=== PATIENT | female | born 1930 | race Caucasian/White ===

== ENCOUNTER 2017-05-23 22:19 | Emergency (ER) | payer OTHER ==
--- NOTE | 2017-05-23 22:29 | PDOC ---
History of Present Illness - General Chief Complaint: Blood Pressure Problem Stated Complaint: HIGH BLOOD PRESSURE Time Seen by Provider: 05/23/17 22:22 History Source: Patient Exam Limitations: No Limitations - History of Present Illness Initial Comments: 05/23/17 22:49 This is a 87-year-old female who comes in with her family for evaluation of hypertension. Patient has been taking her blood pressure multiple times throughout the day and calling her doctor as her blood pressure is been running anywhere from 190 systolic to 210 systolic throughout the day. Patient has taken double the amount of blood pressure meds that she normally takes and has been very anxious as well as her family has been very anxious. Patient's doctor call me pablito and asked me to evaluate her. Patient's doctor said the patient is asymptomatic but because of her anxiety and the family's concern that she asked me to evaluate her. Patient denied any chest pain, shortness of breath, headache or any complaints consistent with hypertension. Patient normally doesn' t take her blood pressure more than about once a week however she was at rehabilitation and it was high there and then she started taking it at home and it was consistently high so she became concerned and took it multiple times today. In the emergency room patient appeared anxious as well as her family was very anxious. PAST MEDICAL HISTORY: Hypertension as per history of present illness PAST SURGICAL HISTORY: no significant history FAMILY HISTORY: no pertinant history SOCIAL HISTORY: Pt lives with family and is employed. MEDICATIONS: reviewed ALLERGIES: As per nursing notes Review of Systems General: No fevers or chills, no weakness, no weight loss HEENT: No change in vision. No sore throat,. No ear pain CardioVascular: No chest pain or shortness of breath Respiratory:No cough, or wheezing. Gastrointestinal: no nausea, vomitting, diarrhea or constipation, No rectal bleeding Genitourinary: No dysuria, hematuria, or frequency Musculoskeletal: No joint or muscle pain or swelling Neurologic: No headache, vertigo, dizziness or loss of consciousness Psychiatric: nor depression Skin: No rashes or easy bruising Endocrine: no increased thirst or abnormal weight change Allergic: no skin or latex allergy All other systems reviewed and normal Exam: General: Well-nourished well-developed individual, no acute distress HEENT: Throat: Normal, tonsils normal, no erythema or exudate Neck: Supple, no meningeal signs, no lymphadenopathy Eyes::Pupils equal reactive and round, extraocular motion intact Chest: Nontender to palpation Cardiac: S1-S2 normal, regular rate and rhythm, no murmurs rubs or gallops Respiratory: Lungs clear to auscultation bilateral Abdomen: Soft, nondistended, normal bowel sounds, nontender to palpation diffusely Extremities: Warm, dry, no cyanosis, clubbing, or edema Skin: No rashes Neuro: Alert and oriented x3, nonfocal exam, grossly intact, normal gait Psych: Normal mood and affect Assessment and plan: This is an 87-year-old female who was sent in by her primary care doctor for elevated blood pressure. Arrival here in the emergency room patient's blood pressure was 170 systolic over 70 diastolic. This is in a range that is normal for this patient as per her primary care doctor. Patient however was very anxious so I did give her some Xanax and a repeat blood pressure was 156/70. Patient was discharged home and told to follow-up with her primary care doctor in the morning. 05/23/17 23:03 Past History - Past Medical History Allergies/Adverse Reactions: Allergies Allergy/AdvReac Type Severity Reaction Status Date / Time No Known Allergies Allergy Verified 05/23/17 22:32 Home Medications: Ambulatory Orders Amlodipine Besylate [Norvasc -] 2.5 mg PO DAILY 05/23/17 Atenolol [Tenormin -] 100 mg PO DAILY 05/23/17 Furosemide [Lasix] 20 mg PO DAILY 05/23/17 Cancer: Yes HTN: Yes - Psycho/Social/Smoking Cessation Hx Anxiety: No Suicidal Ideation: No Smoking Status: No Smoking History: Never smoked Number of Cigarettes Smoked Daily: 0 Hx Alcohol Use: No Drug/Substance Use Hx: No Substance Use Type: None Hx Substance Use Treatment: No *DC/Admit/Observation/Transfer Diagnosis at time of Disposition: Essential hypertension - Discharge Dispostion Disposition: HOME Condition at time of disposition: Stable Admit: No - Referrals Referrals: Margaux Landeros MD [Primary Care Provider] - - Patient Instructions Additional Instructions: Return to the emergency department immediately with ANY new, persistent or worsening symptoms. Continue any medications as previously prescribed by your physician. You should follow up with your primary doctor as soon as possible regarding today's emergency department visit. . Please make sure your doctor reviews the results of your emergency evaluation. Thank you for coming to the Emergency Department today for your care. It was a pleasure to see you today. Please note that your evaluation is INCOMPLETE until you follow-up with your doctor.
[2017-05-23 22:39] VITALS: BP 170/70; PULSE 60; TEMP 97.9; BMI 25.1
[2017-05-23] MEDS ORDERED: ALPRAZolam 0.25 MG TABLET PO ONE (22:39)
== END 2017-05-23 23:13 | disposition home or self-care (01) ==
LOC: FER 22:19
DX: I10 Essential (primary) hypertension (principal); Z85.9 Personal history of malignant neoplasm, unspecified
CPT/HCPCS: 99281-25

== ENCOUNTER 2017-11-24 17:25 | Observation (INO) | payer OTHER ==
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
[2017-11-24] MEDS ORDERED: ACETAMINOPHEN 325 MG TABLET (FP) PO ONE (18:18)
[2017-11-24] MEDS ORDERED: ACETAMINOPHEN 325 MG TABLET (FP) ONE ×2 (18:35→18:36)
[2017-11-24 21:50] LABS: BASO % 0.1 % (0-2.0); EOS % 0.4 % (0-4.5); HEMATOCRIT 38.9 % (32.4-45.2); HEMOGLOBIN 12.7 GM/dl (10.7-15.3); LYMPH % 9.6 % (8-40); MCH 26.6 pg (25.7-33.7); MCHC 32.6 g/dl (32.0-36.0); MEAN CELL VOLUME 81.5 fl (80-96); MEAN PLT VOLUME 7.8 fl (7.5-11.1); MONO % 4.8 % (3.8-10.2); NEUT % 85.1 % (42.8-82.8); PLATELET COUNT 205 K/MM3 (134-434); RBC 4.78 M/mm3 (3.60-5.2); RDW 13.7 % (11.6-15.6); WHITE BLOOD COUNT 12.5 K/mm3 (4.0-10.8)
[2017-11-24 21:58] LABS: ALBUMIN 3.4 g/dl (3.5-5.0); ALK PHOS 46 U/L (32-92); ANION GAP 1 (8-16); BILIRUBIN,TOTAL 0.8 mg/dl (0.2-1.0); BLOOD UREA NITROGEN 19 mg/dl (7-18); CALCIUM 9.4 mg/dl (8.4-10.2); CHLORIDE 110 mmol/L (98-107); CO2 26 mmol/L (22-28); GLUCOSE,RANDOM 105 mg/dl (74-106); POTASSIUM 3.4 mmol/L (3.5-5.1); SGOT/AST 26 U/L (10-42); SGPT/ALT 15 U/L (10-40); SODIUM 137 mmol/L (136-145); TOT PROT 5.4 g/dl (6.4-8.3)
[2017-11-24 22:06] LABS: CREATININE < 0.8 mg/dl (0.6-1.3)
--- NOTE | 2017-11-24 22:37 | PDOC ---
*Physical Exam - Vital Signs Last Vital Signs Temp Pulse Resp BP Pulse Ox 97.4 F L 65 20 183/84 100 11/24/17 17:25 11/24/17 17:25 11/24/17 17:25 11/24/17 17:25 11/24/17 17:25 ED Treatment Course - LABORATORY CBC & Chemistry Diagram: 11/24/17 21:35 11/24/17 21:35 - ADDITIONAL ORDERS Additional order review: Laboratory Results 11/24/17 11/24/17 11/24/17 21:35 21:35 21:35 Sodium 137 Potassium 3.4 L Chloride 110 H Carbon Dioxide 26 Anion Gap 1 L BUN 19 H Creatinine < 0.8 Creat Clearance w eGFR > 60 Random Glucose 105 Calcium 9.4 Total Bilirubin 0.8 AST 26 ALT 15 Alkaline Phosphatase 46 Creatine Kinase 59 Troponin I 0.03 Total Protein 5.4 L Albumin 3.4 L 11/24/17 21:35 RBC 4.78 MCV 81.5 MCHC 32.6 RDW 13.7 MPV 7.8 Neutrophils % 85.1 H Lymphocytes % 9.6 Monocytes % 4.8 Eosinophils % 0.4 Basophils % 0.1 - RADIOLOGY Radiology Studies Ordered: Category Date Time Status HEAD CT WITHOUT CONTRAST [CT] Stat CT Scan 11/24/17 21:21 Taken ANKLE & FOOT-LEFT* [RAD] Stat Radiology 11/24/17 20:48 Taken FINGER(S) LEFT [RAD] Stat Radiology 11/24/17 20:17 Taken - Medications Given in the ED: ED Medications Discontinued Medications Generic Name Dose Route Start Last Admin Trade Name Freq PRN Reason Stop Dose Admin Acetaminophen 650 mg 11/24/17 18:18 11/24/17 18:38 Tylenol - PO 11/24/17 18:19 650 mg ONCE ONE Administration *DC/Admit/Observation/Transfer Diagnosis at time of Disposition: Fall (on) (from) other stairs and steps, initial encounter Blunt trauma of sternum Qualifiers: Encounter type: initial encounter Qualified Code(s): S29.8XXA - Other specified injuries of thorax, initial encounter Chest wall contusion Qualifiers: Encounter type: initial encounter Laterality: unspecified laterality Qualified Code(s): S20.219A - Contusion of unspecified front wall of thorax, initial encounter Finger fracture, left Qualifiers: Encounter type: initial encounter Finger: index finger Fracture type: closed Phalanx: middle Fracture alignment: displaced Qualified Code(s): S62.621A - Displaced fracture of middle phalanx of left index finger, initial encounter for closed fracture - Discharge Dispostion Condition at time of disposition: Improved Admit: Yes - Referrals - Patient Instructions - Post Discharge Activity
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
[2017-11-24 23:29] LABS: URINE APPEARANCE Clear; URINE BILIRUBIN Negative (NEGATIVE); URINE BLOOD Trace-intact (NEGATIVE); URINE COLOR YELLOW; URINE GLUCOSE (UA) Negative (NEGATIVE); URINE KETONE Negative (NEGATIVE); URINE LEUK ESTERASE 2+ (NEGATIVE); URINE NITRITE Negative (NEGATIVE); URINE PROTEIN Negative (NEGATIVE); URINE UROBILINOGEN 0.2 (0.2-1.0)
[2017-11-24 23:36] LABS: EPI CELLS FEW /HPF; URINE BACTERIA MODERATE /hpf (NEGATIVE); URINE RBC 0-2 /hpf (0-3)
[2017-11-25] MEDS ORDERED: morphine CARPU-JECT 2 MG/1 ML DISP.SYRIN IVPUSH ONE (00:57)
[2017-11-25] MEDS ORDERED: morphine CARPU-JECT 2 MG/1 ML DISP.SYRIN ONE (01:07)
[2017-11-25] MEDS ORDERED: POLYETHYLENE GLYCOL 3350 119 GM BTL PO PRN (01:27)
[2017-11-25 02:38] VITALS: BMI 23.6
[2017-11-25 07:37] LABS: BASO % 0.5 % (0-2.0); HEMATOCRIT 34.5 % (32.4-45.2); LYMPH % 14.5 % (8-40); MCH 26.1 pg (25.7-33.7); MEAN CELL VOLUME 81.8 fl (80-96); MEAN PLT VOLUME 7.7 fl (7.5-11.1); PLATELET COUNT 190 K/MM3 (134-434); RBC 4.22 M/mm3 (3.60-5.2); RDW 13.5 % (11.6-15.6); WHITE BLOOD COUNT 6.6 K/mm3 (4.0-10.8)
[2017-11-25 07:43] LABS: ANION GAP 3 (8-16); BLOOD UREA NITROGEN 21 mg/dl (7-18); CALCIUM 9.1 mg/dl (8.4-10.2); CHLORIDE 110 mmol/L (98-107); CO2 27 mmol/L (22-28); CREATININE 0.6 mg/dl (0.6-1.3); GLUCOSE,RANDOM 96 mg/dl (74-106); POTASSIUM 3.5 mmol/L (3.5-5.1); SODIUM 140 mmol/L (136-145)
[2017-11-25] MEDS: amLODIPine BESYLATE 5 MG TABLET (FP) PO SCH (09:52)
[2017-11-25] MEDS: ATENOLOL 50 MG TABLET (FP) PO SCH (09:52)
[2017-11-25] MEDS: ENALAPRIL MALEATE 10 MG TABLET (FP) PO SCH (09:52)
[2017-11-25] MEDS: ASPIRIN 81 MG CHEWABLE TABLETS PO SCH (09:52)
[2017-11-25] MEDS: oxyCODONE HCL 5 MG TABLET PO PRN (09:55)
[2017-11-25] MEDS ORDERED: RESTASIS OU SCH (10:00)
[2017-11-25] MEDS ORDERED: VIACTIV SOFT PO SCH (10:00)
[2017-11-25] MEDS ORDERED: OCUVITE PO SCH (10:00)
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
[2017-11-25] MEDS: HEPARIN NA (PORCINE) 5,000 UNITS/ML 1ML VIAL SQ SCH (21:31)
[2017-11-26] MEDS: oxyCODONE HCL 5 MG TABLET PO PRN (07:03)
[2017-11-26] MEDS: ACETAMINOPHEN 325 MG TABLET (FP) PO PRN (07:04)
[2017-11-26] MEDS: ASPIRIN 81 MG CHEWABLE TABLETS PO SCH (10:07)
[2017-11-26] MEDS: amLODIPine BESYLATE 5 MG TABLET (FP) PO SCH (10:08)
[2017-11-26] MEDS: ATENOLOL 50 MG TABLET (FP) PO SCH (10:08)
[2017-11-26] MEDS: ENALAPRIL MALEATE 10 MG TABLET (FP) PO SCH (10:08)
[2017-11-26] MEDS: HEPARIN NA (PORCINE) 5,000 UNITS/ML 1ML VIAL SQ SCH ×2 (10:09→21:25)
--- NOTE | 2017-11-26 11:15 | PN ---
Physical Exam: SUBJECTIVE: Patient seen and examined this AM, She is sitting up in bed with complaints of left hand 4th finger splint falling off and minor sternal pain. She feels she can not return home alone without going to a SNF for rehab to regain her strengh. OBJECTIVE: Vital Signs Period Temp Pulse Resp BP Sys/Valenzuela Pulse Ox Last 24 Hr 98.0 F-98.6 F 66-69 18-19 141-175/52-66 94-99 GENERAL: The patient is awake, alert, and fully oriented, in no acute distress. HEAD: Normal with no signs of trauma. NECK: Trachea midline, full range of motion, supple. LUNGS: Breath sounds equal, clear to auscultation bilaterally, no wheezes, no crackles, no accessory muscle use. Minor bruising to the lower pole of sternal bone HEART: Regular rate and rhythm, S1, S2 without murmur, rub or gallop. ABDOMEN: Soft, nontender, nondistended, normoactive bowel sounds, no guarding, no rebound, no hepatosplenomegaly, no masses. EXTREMITIES: 2+ pulses, warm, well-perfused, no edema. Left hand 4th digit, eccymotic and swelling NEUROLOGICAL: Cranial nerves II through XII grossly intact. Normal speech, gait not observed. PSYCH: Normal mood, normal affect. SKIN: Warm, dry, normal turgor, no rashes or lesions noted Active Medications Generic Name Dose Route Start Last Admin Trade Name Freq PRN Reason Stop Dose Admin Acetaminophen 650 mg 11/25/17 01:32 11/26/17 07:04 Tylenol - PO 650 mg Q6H PRN Administration PAIN LEVEL 4 - 6 Amlodipine Besylate 5 mg 11/25/17 10:00 11/26/17 10:08 Norvasc - PO 5 mg DAILY KATARINA Administration Aspirin 81 mg 11/25/17 10:00 11/26/17 10:07 Asa - PO 81 mg DAILY KATARINA Administration Atenolol 100 mg 11/25/17 10:11/26/17 10:08 Tenormin - PO 100 mg DAILY KATARINA Administration Enalapril Maleate 10 mg 11/25/17 10:00 11/26/17 10:08 Vasotec - PO 10 mg DAILY KATARINA Administration Heparin Sodium (Porcine) 5,000 unit 11/25/17 22:00 11/26/17 10:09 Heparin - SQ 5,000 unit BID KATARINA Administration Non-Formulary Medication 1 tab 11/25/17 10:00 Ocuvite (Nf) - PO DAILY KATARINA Non-Formulary Medication 1 drp 11/25/17 10:00 Restasis OU DAILY KATARINA Non-Formulary Medication 2 cap 11/25/17 10:00 Viactiv Soft Chew PO DAILY KATARINA Oxycodone HCl 5 mg 11/25/17 01:33 11/26/17 07:03 Roxicodone - PO 5 mg Q4H PRN Administration PAIN LEVEL 7 - 10 Polyethylene Glycol 17 gm 11/25/17 01:27 Miralax (For Daily Use) - PO DAILY PRN CONSTIPATION ASSESSMENT/PLAN: 87 year-old woman with a PMH significant for HTN, HLD, OA, and spinal stenosis. Placed on observation following a fall with + finger fx, sternal pain, and today noted to have elevated blood pressure asymtomatic and resolved. C/o of urinary burning, + leuks on admission with low wbc , noted trace blood Chest pain following fall --Sternal and rib tenderness reproducible on exam, no ecchymosis; likely musculoskeltal, mild bruising noted. --possible sternal contusion, --no events on telemetry --encourage incentive spirometry, early ambulation --Tylenol, oxycodone PRN Left fourth finger fracture --tongue blade splint and tape to secure fx --no surgical intervention per ortho Bilateral foot/toe pain --all imaging negative for acute process --PT evaluation pt uses walker at home. Hypertension --continue amlodipine, enalapril, atenolol --elevated earlier but resolved after morning meds. --monitor b/p closely urinary dysuria --repeat ua/cx --start on macrobid until ua/cx back Hyperlipidemia --not on medication Osteoarthritis Spinal stenosis --no acute issues FEN Fluids: PO intake adequate Electrolytes: replete as indicated Nutrition: low sodium DVT prophylaxis: subq heparin Physical therapy evaluation SW consult for SNF plan for rehab Dispo: continues to require observation. Full code. Visit type - Emergency Visit Emergency Visit: Yes ED Registration Date: 11/24/17 Care time: The patient presented to the Emergency Department on the above date and was hospitalized for further evaluation of their emergent condition. - New Patient This patient is new to me today: Yes Date on this admission: 11/26/17 - Critical Care Critical Care patient: No - Discharge Referral Referred to [facility] Med [facility] No
[2017-11-26] MEDS ORDERED: NITROFURANTOIN MACROCRYSTAL 50 MG CAPSULE (FP) PO SCH (11:30)
[2017-11-26] MEDS: NITROFURANTOIN MACROCRYSTAL 50 MG CAPSULE (FP) PO SCH ×2 (13:10→21:25)
[2017-11-27 07:52] LABS: BASO % 0.4 % (0-2.0); EOS % 3.4 % (0-4.5); HEMATOCRIT 33.3 % (32.4-45.2); HEMOGLOBIN 10.8 GM/dl (10.7-15.3); LYMPH % 19.5 % (8-40); MCH 26.5 pg (25.7-33.7); MCHC 32.5 g/dl (32.0-36.0); MEAN CELL VOLUME 81.6 fl (80-96); MEAN PLT VOLUME 8.4 fl (7.5-11.1); MONO % 8.7 % (3.8-10.2); PLATELET COUNT 166 K/MM3 (134-434); RBC 4.08 M/mm3 (3.60-5.2); WHITE BLOOD COUNT 6.9 K/mm3 (4.0-10.8)
[2017-11-27] MEDS: ACETAMINOPHEN 325 MG TABLET (FP) PO PRN ×2 (08:31→17:10)
[2017-11-27] MEDS: oxyCODONE HCL 5 MG TABLET PO PRN ×2 (08:31→17:10)
[2017-11-27 08:44] LABS: ALBUMIN 2.7 g/dl (3.5-5.0); ALK PHOS 41 U/L (32-92); ANION GAP 5 (8-16); BILIRUBIN,TOTAL 0.7 mg/dl (0.2-1.0); BLOOD UREA NITROGEN 20 mg/dl (7-18); CHLORIDE 107 mmol/L (98-107); CO2 25 mmol/L (22-28); GLUCOSE,RANDOM 95 mg/dl (74-106); MAGNESIUM 1.9 mg/dL (1.8-2.4); PHOSPHOROUS 2.7 mg/dl (2.5-4.6); POTASSIUM 3.7 mmol/L (3.5-5.1); SGOT/AST 21 U/L (10-42); SGPT/ALT 13 U/L (10-40); SODIUM 137 mmol/L (136-145); TOT PROT 4.6 g/dl (6.4-8.3)
[2017-11-27 09:04] LABS: CREATININE 0.8 mg/dl (0.6-1.3)
[2017-11-27] MEDS: ATENOLOL 50 MG TABLET (FP) PO SCH (10:09)
[2017-11-27] MEDS: NITROFURANTOIN MACROCRYSTAL 50 MG CAPSULE (FP) PO SCH ×2 (10:09→14:20)
[2017-11-27] MEDS: ENALAPRIL MALEATE 10 MG TABLET (FP) PO SCH (10:09)
[2017-11-27] MEDS: amLODIPine BESYLATE 5 MG TABLET (FP) PO SCH (10:09)
[2017-11-27] MEDS: HEPARIN NA (PORCINE) 5,000 UNITS/ML 1ML VIAL SQ SCH (10:09)
[2017-11-27] MEDS: ASPIRIN 81 MG CHEWABLE TABLETS PO SCH (10:09)
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
[2017-11-27 14:24] VITALS: BP 140/60; PULSE 68; TEMP 97.8
[2017-11-27] MEDS ORDERED: TUBERCULIN PPD 5 TU/0.1ML SYRINGE (IN PATIENT USE ONLY) ID ONE (14:30)
--- NOTE | 2017-11-27 14:43 | EKG ---
Test Reason : Blood Pressure : / mmHG Vent. Rate : 068 BPM Atrial Rate : 068 BPM P-R Int : 152 ms QRS Dur : 086 ms QT Int : 436 ms P-R-T Axes : 075 -32 048 degrees QTc Int : 463 ms NORMAL SINUS RHYTHM LEFT AXIS DEVIATION MINIMAL VOLTAGE CRITERIA FOR LVH, MAY BE NORMAL VARIANT CANNOT RULE OUT SEPTAL INFARCT , AGE UNDETERMINED NONSPECIFIC ST ABNORMALITY ABNORMAL ECG WHEN COMPARED WITH ECG OF 21-AUG-2012 05:19, Criteria for possible SEPTAL INFARCT IS NOW PRESENT NONSPECIFIC ST ABNORMALITY now present in V4-6 Confirmed by JESUS MACIEL MD ([id number]) on 11/27/2017 2:43:09 PM Referred By: DR PATTON Confirmed By:JESUS MACIEL MD
--- NOTE | 2017-11-27 14:45 | EKG ---
Test Reason : Blood Pressure : / mmHG Vent. Rate : 076 BPM Atrial Rate : 076 BPM P-R Int : 148 ms QRS Dur : 086 ms QT Int : 408 ms P-R-T Axes : 059 -22 023 degrees QTc Int : 459 ms NORMAL SINUS RHYTHM VOLTAGE CRITERIA FOR LEFT VENTRICULAR HYPERTROPHY NONSPECIFIC ST ABNORMALITY ABNORMAL ECG WHEN COMPARED WITH ECG OF 24-NOV-2017 22:26, CRITERIA FOR SEPTAL INFARCT ARE NO LONGER PRESENT Confirmed by JANELL HORNER, JESUS ([id number]) on 11/27/2017 2:45:17 PM Referred By: BLANCA ROBINS Confirmed By:JESUS MACIEL MD
--- NOTE | 2017-11-27 14:46 | EKG ---
Test Reason : Blood Pressure : / mmHG Vent. Rate : 065 BPM Atrial Rate : 065 BPM P-R Int : 154 ms QRS Dur : 086 ms QT Int : 412 ms P-R-T Axes : 068 -31 026 degrees QTc Int : 428 ms NORMAL SINUS RHYTHM LEFT AXIS DEVIATION MINIMAL VOLTAGE CRITERIA FOR LVH, MAY BE NORMAL VARIANT NONSPECIFIC ST AND T WAVE ABNORMALITY ABNORMAL ECG WHEN COMPARED WITH ECG OF 25-NOV-2017 09:06, NO SIGNIFICANT CHANGE WAS FOUND Confirmed by JESUS MACIEL MD ([id number]) on 11/27/2017 2:46:47 PM Referred By: Confirmed By:JESUS MACIEL MD
--- NOTE | 2017-11-27 16:54 | PN ---
Teaching Attending Note Name of Resident: Marlene Lundberg Ask to reviewed Chest xray read for current admission. CXR from admission 11/24/2017 official read with cardiomegaly but no acute findings, no active concerns for TB mentioned on official report per radiology.
== END 2017-11-27 17:12 ==
LOC: FER 17:25 → FM/S 22:55
PROVIDERS: ADMIT Internal Medicine; ATTEND Nurse Practitioner Family
PROC: 2W3KX1Z Immobilization of Left Finger using Splint (ICD-10-PCS; principal; 2017-11-24)
PROC: 3E033NZ Introduction of Analgesics, Hypnotics, Sedatives into Peripheral Vein, Percutaneous Approach (ICD-10-PCS; 2017-11-24)
PROC: 3E013GC Introduction of Other Therapeutic Substance into Subcutaneous Tissue, Percutaneous Approach (ICD-10-PCS; 2017-11-24)
DX: S29.8XXA Other specified injuries of thorax, initial encounter (principal); S20.219A Contusion of unspecified front wall of thorax, initial encounter; S62.625A Displaced fracture of middle phalanx of left ring finger, initial encounter for closed fracture; R07.89 Other chest pain; W22.8XXA Striking against or struck by other objects, initial encounter; Y93.89 Activity, other specified; Y92.007 Garden or yard of unspecified non-institutional (private) residence as the place of occurrence of the external cause; I10 Essential (primary) hypertension; E78.5 Hyperlipidemia, unspecified; M19.90 Unspecified osteoarthritis, unspecified site; M48.00 Spinal stenosis, site unspecified; M79.672 Pain in left foot; M79.671 Pain in right foot; M79.675 Pain in left toe(s); M79.674 Pain in right toe(s)
CPT/HCPCS: 29130; 36415; 70450-TC; 71045-TC-FY; 71111-TC-FY; 71120-TC-FY; 73140-TC-LT-FY; 73610-TC-LT-FY; 73630-TC-LT; 73630-TC-RT-FY; 80048; 80053; 81003; 81015; 82550; 83735; 84100; 84484; 85025; 87086; 93005; 93010; 96372; 96374; 97116-GP; 97161-GP; 99283-25; G0378; J1644

== ENCOUNTER 2019-11-03 12:30 | Inpatient (IN) | payer OTHER ==
[2019-11-03] MEDS ORDERED: ALBUTEROL SO4 2.5/IPRATROPIUM 0.5 INH SOL 3 ML VIAL.NEB. NEB ONE ×2 (13:14→13:15)
[2019-11-03] MEDS ORDERED: POTASSIUM CHLORIDE ORAL LIQUID 20 MEQ/15 ML PO ONE (13:15)
--- NOTE | 2019-11-03 13:15 | PDOC ---
History of Present Illness - General Chief Complaint: Shortness of Breath Stated Complaint: CHF Time Seen by Provider: 11/03/19 12:33 - History of Present Illness Initial Comments: 11/03/19 13:38 Chief complaint: Cough and shortness of breath HPI: Progressive shortness of breath and nonproductive cough for 1 to [address] Landeros, primary physician. Chronic A. fib was noted to be uncontrolled with rates in the 120-130 range, but was lowered with p.o. Cardizem. However, this shortness of breath has persisted. Chest x-ray and lab work were performed yesterday. Of note were new bilateral pleural effusions , but not particularly congested lung mejia. Review of systems: Reviewed with patient and her family. No fever/chills, chest pain, abdominal pain, nausea vomiting or diarrhea, diaphoresis, lightheadedness or dizziness, hematemesis, melena, bloody stool, urinary tract symptoms, vaginal bleeding or discharge. No visual or focal neurologic symptoms. Mild URI symptoms with postnasal drip were described. Remainder of systems reviewed and negative Past medical history: CHF. Atrial fibrillation with rate control on atenolol, diltiazem. Eliquis for embolus prophylaxis. Chlorthalidone. Enalapril. No known COPD, smoking, or toxin exposure. Social history: Assisted living facility, family nearby and visits daily, no tobacco alcohol or nonprescription drugs, mainly gets around with her wheelchair , but will ambulate with a walker to a limited extent in her apartment Family history: Reviewed and noncontributory including early coronary artery disease, diabetes Labs reviewed from yesterday, no significant abnormalities other than potassium of 3.0. Creatinine was 0.8. Chest x-ray as described above. Physical exam: Drowsy but arousable, oriented, cheerful and cooperative, able to convey her symptoms adequately. No tachypnea or dyspnea at rest, but becomes dyspneic with sitting up, movement, and other minimal exertion PERRLA, ENT clear Neck supple without bruit mass or nodes Lungs with moderate wheezing, end expiratory, bilaterally symmetric over the entire lung mejia anterior and posterior. No wheezes or rales. Full breath without splinting. Dullness to percussion at both bases. CV irregularly irregular approximately 90/min. 2/6 systolic ejection murmur, early to mid systole, left sternal border without radiation. No rubs. No JVD or edema. No posterior calf swelling or tenderness. Abdomen soft nontender without mass organomegaly Neurological generalized weakness but no focal sensorimotor deficits. Cranial nerves intact. Gait not assessed Extremities no CCE Skin clear, no rash, adequate turgor, but mucous membranes are somewhat dry Impression: Bilateral pleural effusions, probably CHF, possibly superimposed bronchitis. Plan: Admission for more intense treatment of congestive heart failure, bronchitis. Rule out acute coronary syndrome. Past History - Past Medical History Allergies/Adverse Reactions: Allergies Allergy/AdvReac Type Severity Reaction Status Date / Time No Known Allergies Allergy Verified 11/24/17 17:25 Home Medications: Ambulatory Orders Apixaban [Eliquis] 5 mg PO BID 11/03/19 Atenolol [Tenormin -] 100 mg PO DAILY 11/03/19 Chlorthalidone 25 mg PO BID 11/03/19 Diltiazem Cd [Cardizem Cd -] 180 mg PO DAILY 11/03/19 Docusate Sodium [Colace] 100 mg PO DAILY 11/03/19 Duloxetine HCl 30 mg PO BID 11/03/19 Enalapril Maleate [Vasotec] 40 mg PO DAILY 11/03/19 Lidocaine 5% Patch [Lidoderm Patch -] 1 patch TP DAILY 11/03/19 Potassium Chloride 10 meq PO DAILY 11/03/19 Cancer: Yes Cardiac Disorders: Yes (CHF,AFIB) COPD: No CHF: Yes HTN: Yes Hypercholesterolemia: Yes - Psycho Social/Smoking Cessation Hx Smoking Status: No Smoking History: Never smoked Have you smoked in the past 12 months: No Number of Cigarettes Smoked Daily: 0 Information on smoking cessation initiated: No Hx Alcohol Use: No Drug/Substance Use Hx: No Substance Use Type: None Hx Substance Use Treatment: No *Physical Exam - Vital Signs Last Vital Signs Temp Pulse Resp BP Pulse Ox 98.4 F 81 22 H 122/89 95 11/03/19 12:31 11/03/19 12:31 11/03/19 12:31 11/03/19 12:31 11/03/19 12:31 Medical Decision Making - Medical Decision Making 11/03/19 13:54 EKG reveals atrial fibrillation with controlled rate of 86/min. Left axis deviation. Nonspecific ST-T wave changes in the lateral leads, possibly ischemic in origin. Prolonged QT interval. These findings are new since last EKG from November 2017 11/03/19 13:56 Last EKG in our records dated November 2017 showed normal sinus rhythm, and no ST T wave changes. 11/03/19 13:57 CK 56, troponin 0.04 11/03/19 14:11 Patient feels much better after treatment with DuoNeb. Lasix held due to recent p.o. chlorthalidone. She feels her breathing is improved. Wheezes have completely resolved and there are clear breath sounds bilaterally. Heart rate remains in the low 90s. Clinically and hemodynamically stable for admission to the [facility] floor. 11/03/19 14:43 Discharge - Discharge Information Problems reviewed: Yes Clinical Impression/Diagnosis: CHF (congestive heart failure) Qualifiers: Heart failure type: unspecified Heart failure chronicity: acute on chronic Qualified Code(s): I50.9 - Heart failure, unspecified - Admission Yes - Follow up/Referral - Patient Discharge Instructions - Post Discharge Activity
[2019-11-03] MEDS ORDERED: POTASSIUM CHLORIDE ORAL LIQUID 20 MEQ/15 ML ONE (14:24)
[2019-11-03] MEDS ORDERED: FUROSEMIDE 40 MG/4 ML INJECTABLE VIAL ONE (14:24)
[2019-11-03] MEDS: FUROSEMIDE 40 MG/4 ML INJECTABLE VIAL IVPUSH ONE ×2 (14:24→14:26)
[2019-11-03 15:32] LABS: EPITHELIAL CELLS MODERATE /hpf; URINE AMORPHOUS SEDIMENT 1+
--- NOTE | 2019-11-03 15:54 | HP ---
Admitting History and Physical - Admission Chief Complaint: dyspnea History of Present Illness: 89 yo female resident of assisted living facility with PMH of recent onset atrial fibrillation, mild to moderate AR, HTN, melanoma, presents to ER with increased shortness of breath. The patient developed 6 days ago A fib with FVR associated with pulmonary congestion. HR respondeed to Cardizem 180 mg daily. Her Chlorthalidone diuretic was also increased to 25 mg bid without improvement of her respiratory status. During the past 24 hours she became increasingly short of breath and presented to ER for management of congestive heart failure, and respiratory distress. 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 Daniel Campos on October 16 for new onset Afib with FVR. History Source: Patient Limitations to Obtaining History: No Limitations - Past Medical History Pulmonary: Yes: Other (cough, wheezing) ...: No Psych: Yes: Depression Musculoskeletal: Yes: Osteoarthritis - Smoking History Smoking history: Never smoked Have you smoked in the past 12 months: No Aproximately how many cigarettes per day: 0 - Alcohol/Substance Use Hx Alcohol Use: No - Social History Usual Living Arrangement: Yes: Alone, Assisted Living Do you think of yourself as: Straight/Heterosexual Home Medications - Allergies Allergies/Adverse Reactions: Allergies Allergy/AdvReac Type Severity Reaction Status Date / Time No Known Allergies Allergy Verified 11/24/17 17:25 - Home Medications Home Medications: Ambulatory Orders Apixaban [Eliquis] 5 mg PO BID 11/03/19 Atenolol [Tenormin -] 100 mg PO DAILY 11/03/19 Chlorthalidone 25 mg PO BID 11/03/19 Diltiazem Cd [Cardizem Cd -] 180 mg PO DAILY 11/03/19 Docusate Sodium [Colace] 100 mg PO DAILY 11/03/19 Duloxetine HCl 30 mg PO BID 11/03/19 Enalapril Maleate [Vasotec] 40 mg PO DAILY 11/03/19 Lidocaine 5% Patch [Lidoderm Patch -] 1 patch TP DAILY 11/03/19 Potassium Chloride 10 meq PO DAILY 11/03/19 Review of Systems - Review of Systems Constitutional: reports: Weakness Eyes: reports: No Symptoms HENT: reports: Nasal Congestion Cardiovascular: denies: Chest Pain Respiratory: reports: Cough, Orthopnea, Wheezing Breasts: reports: No Symptoms Reported Musculoskeletal: reports: Muscle Weakness Integumentary: reports: No Symptoms Psychiatric: reports: No Symptoms Physical Examination Vital Signs: Vital Signs Temperature 98.4 F 11/03/19 12:31 Pulse Rate 93 H 11/03/19 14:30 Respiratory Rate 21 H 11/03/19 14:30 Blood Pressure 132/72 11/03/19 14:30 O2 Sat by Pulse Oximetry (%) 97 11/03/19 14:30 Constitutional: Yes: No Distress Eyes: Yes: Conjunctiva Clear Neck: Yes: Supple, Trachea Midline Cardiovascular: Yes: Regular Rate and Rhythm Respiratory: Yes: Regular, CTA Bilaterally, Cough, On Nasal O2, Orthopnea, SOB Gastrointestinal: Yes: Normal Bowel Sounds, Soft ...Rectal Exam: Yes: Deferred Breast(s): Yes: WNL Musculoskeletal: Yes: Muscle Weakness Extremities: No: Calf Tenderness Edema: LLE: Trace, RLE: Trace Peripheral Pulses WNL: Yes Neurological: Yes: Alert, Oriented Psychiatric: Yes: Alert, Oriented Imaging - Results Chest X-ray: Other (read by me: rotated CXR, cardiolmegaly, bilateral pleural; effusions, hilar congestion, no infiltrate) EKG: Other (atrial fibrillation,. QRS axis at - 30 degrees,. good R wav progression, nonspecific St T chamges) Problem List - Problems (1) CHF (congestive heart failure) Assessment/Plan: Lasix 40 mg iv bid cardiac enzymes, ekg, bnp Code(s): I50.9 - HEART FAILURE, UNSPECIFIED Qualifiers: Heart failure type: diastolic Heart failure chronicity: acute on chronic Qualified Code(s): I50.33 - Acute on chronic diastolic (congestive) heart failure (2) Atrial fibrillation Assessment/Plan: continue Atenolol continue Cardizem 180 mg po daily Eliquis 5 mg bid Code(s): I48.91 - UNSPECIFIED ATRIAL FIBRILLATION (3) Essential hypertension Assessment/Plan: ATenolol 180 mg daily and CArdizem 180 mg daily Code(s): I10 - ESSENTIAL (PRIMARY) HYPERTENSION (4) Melanoma Assessment/Plan: s/p excision may need CT scan of lungs to R/o malignancy if pleural effusion does not respond to diuretics Code(s): C43.9 - MALIGNANT MELANOMA OF SKIN, UNSPECIFIED
[2019-11-03 16:51] LABS: ALBUMIN 3.2 g/dl (3.4-5.0); BILIRUBIN,TOTAL 0.9 mg/dl (0.2-1); CALCIUM 9.2 mg/dl (8.5-10); CREATININE 0.7 mg/dl (0.55-1.3); POTASSIUM 3.1 mmol/L (3.5-5.1); TOT PROT 5.3 g/dl (6.4-8.2)
[2019-11-03] MEDS: ALBUTEROL SO4 0.083% IH SOL 2.5 MG/3 ML VIAL.NEB. NEB PRN (18:08)
[2019-11-03] MEDS ORDERED: POTASSIUM CHLORIDE TABS 10 MEQ TABLET.ER (FP) PO ONE (21:37)
[2019-11-03] MEDS: APIXABAN 5 MG TABLET PO SCH (21:40)
[2019-11-03] MEDS: MAGNESIUM OXIDE 400 MG TABLET (FP) PO SCH (21:40)
[2019-11-03] MEDS: ENALAPRIL MALEATE 10 MG TABLET (FP) PO SCH (21:40)
[2019-11-04] MEDS: FUROSEMIDE 40 MG/4 ML INJECTABLE VIAL IVPUSH SCH ×2 (05:31→14:50)
[2019-11-04 07:01] LABS: ALBUMIN 3.3 g/dl (3.4-5.0); BILIRUBIN,TOTAL 0.6 mg/dl (0.2-1); CALCIUM 9.4 mg/dl (8.5-10); CREATININE 0.8 mg/dl (0.55-1.3); TOT PROT 5.5 g/dl (6.4-8.2)
[2019-11-04 07:32] LABS: CHOLESTEROL 151 mg/dl (50-200); HDL CHOLESTEROL 42 mg/dl (40-60); LDL CHOLESTEROL (ONLY DFH) 101 mg/dl (5-100); TRIGLYCERIDES 42 mg/dl (0-150)
[2019-11-04] MEDS ORDERED: DULoxetine HCL 30 MG CAPSULE.DR PO ONE (09:04)
[2019-11-04] MEDS: MAGNESIUM OXIDE 400 MG TABLET (FP) PO SCH ×2 (09:21→22:12)
[2019-11-04] MEDS: APIXABAN 5 MG TABLET PO SCH ×2 (09:21→22:12)
[2019-11-04] MEDS: ATENOLOL 50 MG TABLET (FP) PO SCH (09:21)
[2019-11-04] MEDS: ALBUTEROL SO4 0.083% IH SOL 2.5 MG/3 ML VIAL.NEB. NEB PRN ×3 (09:22→20:43)
[2019-11-04] MEDS: ENALAPRIL MALEATE 10 MG TABLET (FP) PO SCH ×2 (09:22→22:12)
[2019-11-04] MEDS: POTASSIUM CHLORIDE TABS 20 MEQ TABLET.ER (FP) PO SCH (09:22)
--- NOTE | 2019-11-04 09:44 | EKG ---
Test Reason : Blood Pressure : / mmHG Vent. Rate : 086 BPM Atrial Rate : 129 BPM P-R Int : 000 ms QRS Dur : 090 ms QT Int : 430 ms P-R-T Axes : 000 -34 136 degrees QTc Int : 514 ms ATRIAL FIBRILLATION LEFT AXIS DEVIATION PROLONGED QT ABNORMAL ECG WHEN COMPARED WITH ECG OF 26-NOV-2017 06:10, ATRIAL FIBRILLATION HAS REPLACED SINUS RHYTHM INVERTED T WAVES HAVE REPLACED NONSPECIFIC T WAVE ABNORMALITY IN LATERAL LEADS QT HAS LENGTHENED Confirmed by Jignesh Ovalles ([id number]) on 11/04/2019 9:43:43 AM Referred By: JASMINA OVALLE Confirmed By:Jignesh Ovalles
[2019-11-04] MEDS ORDERED: ENALAPRIL MALEATE 10 MG TABLET (FP) PO SCH (10:00)
[2019-11-04] MEDS ORDERED: DULoxetine HCL 60 MG CAPSULE.DR PO SCH (10:00)
--- NOTE | 2019-11-04 10:17 | CON.CARD ---
Consult Consult Specialty:: Cardiology Referred by:: Dr. Margaux Landeros Reason for Consultation:: Cardiac evaluation - History of Present Illness Chief Complaint: Shortness of breath History of Present Illness: Patient is an 89 year old female with underlying history of AF with RVR, mild to moderate AR, HTN and melanoma who presented from [facility] with increased shortness of breath. Patient also was found to have AF with RVR at 140-150 bpm especially after Albuterol nebulizer treatment. She denies chest pain. She denies paroxysmal nocturnal dyspnea or orthopnea. She denies fever or chills. She denies nausea, vomiting, diarrhea or abdominal pain. She denies headache or lightheadedness. Ese Teacher: Daniel Campos MD - History Source History Provided By: Patient, Family Member, Medical Record Limitations to Obtaining History: No Limitations - Past Medical History Cardio/Vascular: Yes: AFIB, Aortic Insufficiency, CHF, HTN Pulmonary: Yes: Other (cough, wheezing) Heme/Onc: Yes: Cancer (Melanoma) Psych: Yes: Depression Musculoskeletal: Yes: Osteoarthritis - Past Surgical History Additional Surgical History: Melanoma surgery, carpal tunnel surgery - Alcohol/Substance Use Hx Alcohol Use: No - Smoking History Smoking history: Never smoked Have you smoked in the past 12 months: No Aproximately how many cigarettes per day: 0 Home Medications - Allergies Allergies/Adverse Reactions: Allergies Allergy/AdvReac Type Severity Reaction Status Date / Time No Known Allergies Allergy Verified 11/24/17 17:25 - Home Medications Home Medications: Ambulatory Orders Apixaban [Eliquis] 5 mg PO BID 11/03/19 Atenolol [Tenormin -] 100 mg PO DAILY 11/03/19 Chlorthalidone 25 mg PO BID 11/03/19 Diltiazem Cd [Cardizem Cd -] 180 mg PO DAILY 11/03/19 Docusate Sodium [Colace] 100 mg PO DAILY 11/03/19 Duloxetine HCl 30 mg PO BID 11/03/19 Enalapril Maleate [Vasotec] 40 mg PO DAILY 11/03/19 Lidocaine 5% Patch [Lidoderm Patch -] 1 patch TP DAILY 11/03/19 Potassium Chloride 10 meq PO DAILY 11/03/19 Family Medical History Family Hx Cancer: Father (Colon CA) Review of Systems - Review of Systems Constitutional: denies: Chills, Fever Cardiovascular: reports: Palpitations, Shortness of Breath. denies: Chest Pain Respiratory: reports: Cough, SOB. denies: Hemoptysis, Orthopnea, PND Gastrointestinal: denies: Abdominal Pain, Constipation, Diarrhea, Melena, Nausea , Rectal Bleeding, Vomiting Genitourinary: denies: Dysuria, Hematuria Musculoskeletal: reports: Joint Pain. denies: Back Pain Neurological: denies: Dizziness, Headache, Seizure, Syncope Vital Signs: Vital Signs Temperature 98.4 F 11/03/19 22:00 Pulse Rate 61 11/03/19 22:00 Respiratory Rate 19 11/03/19 22:00 Blood Pressure 127/81 11/03/19 22:00 O2 Sat by Pulse Oximetry (%) 96 11/04/19 08:10 Eyes: Yes: PERRL HENT: Yes: Atraumatic Neck: Yes: Supple Respiratory: Yes: Cough, Rales, Rhonchi, Wheezes Gastrointestinal: Yes: Normal Bowel Sounds, Soft. No: Tenderness Cardiovascular: Yes: Tachycardia, Pulse Irregular JVD: No PMI: Non-Displaced Heart Sounds: Yes: S1, S2 Murmur: Yes: Systolic Murmur, Diastolic Murmur, Grade 1 Edema: No - Other Data Labs, Other Data: CBC, BMP 11/04/19 06:35 Troponin, BNP 11/03/19 11/03/19 11/03/19 13:08 16:30 16:30 Troponin I 0.04 0.04 B-Natriuretic Peptide 3970.0 H Laboratory Results - last 24 hr 11/03/19 11/03/19 11/03/19 13:08 13:08 14:33 Sodium Potassium Chloride Carbon Dioxide Anion Gap BUN Creatinine Est GFR (CKD-EPI)AfAm Est GFR (CKD-EPI)NonAf Random Glucose Calcium Total Bilirubin AST ALT Alkaline Phosphatase Creatine Kinase 56 Troponin I 0.04 B-Natriuretic Peptide Total Protein Albumin Triglycerides Cholesterol Total LDL Cholesterol HDL Cholesterol TSH Urine Color Yellow Urine Appearance Clear Urine pH 7.0 Urine Protein 1+ H Urine Glucose (UA) Negative Urine Ketones Negative Urine Blood Trace-intact Urine Nitrite Negative Urine Bilirubin Negative Urine Urobilinogen 1.0 Ur Leukocyte Esterase 2+ Urine RBC 2-5 Urine WBC 40-60 Ur Transition Epith Cell Moderate Amorphous Sediment 1+ Urine Bacteria Few 11/03/19 11/03/19 11/03/19 16:30 16:30 16:30 Sodium 133 L Potassium 3.1 L Chloride 99 Carbon Dioxide 26 Anion Gap 8 BUN 21.0 H Creatinine 0.7 Est GFR (CKD-EPI)AfAm 89.66 Est GFR (CKD-EPI)NonAf 77.36 Random Glucose 141 H Calcium 9.2 Total Bilirubin 0.9 AST 34 ALT 33 Alkaline Phosphatase 41 L Creatine Kinase 49 Troponin I 0.04 B-Natriuretic Peptide 3970.0 H Total Protein 5.3 L Albumin 3.2 L Triglycerides Cholesterol Total LDL Cholesterol HDL Cholesterol TSH Urine Color Urine Appearance Urine pH Urine Protein Urine Glucose (UA) Urine Ketones Urine Blood Urine Nitrite Urine Bilirubin Urine Urobilinogen Ur Leukocyte Esterase Urine RBC Urine WBC Ur Transition Epith Cell Amorphous Sediment Urine Bacteria 11/04/19 11/04/19 11/04/19 06:35 06:35 06:35 Sodium 135 L Potassium 3.0 L Chloride 99 Carbon Dioxide 28 Anion Gap 8 BUN 18.0 Creatinine 0.8 Est GFR (CKD-EPI)AfAm 76.29 Est GFR (CKD-EPI)NonAf 65.82 Random Glucose 122 H Calcium 9.4 Total Bilirubin 0.6 AST 39 H ALT 39 Alkaline Phosphatase 46 Creatine Kinase Troponin I B-Natriuretic Peptide Total Protein 5.5 L Albumin 3.3 L Triglycerides 42 Cholesterol 151 Total LDL Cholesterol 101 H HDL Cholesterol 42 TSH 2.17 Urine Color Urine Appearance Urine pH Urine Protein Urine Glucose (UA) Urine Ketones Urine Blood Urine Nitrite Urine Bilirubin Urine Urobilinogen Ur Leukocyte Esterase Urine RBC Urine WBC Ur Transition Epith Cell Amorphous Sediment Urine Bacteria Atrial fibrillation with RVR Echo: Pending Imaging - Results Chest X-ray: Pending EKG: Report Reviewed Problem List - Problems (1) Atrial fibrillation Code(s): I48.91 - UNSPECIFIED ATRIAL FIBRILLATION (2) CHF (congestive heart failure) Code(s): I50.9 - HEART FAILURE, UNSPECIFIED Qualifiers: Heart failure type: diastolic Heart failure chronicity: acute on chronic Qualified Code(s): I50.33 - Acute on chronic diastolic (congestive) heart failure (3) Melanoma Code(s): C43.9 - MALIGNANT MELANOMA OF SKIN, UNSPECIFIED (4) Essential hypertension Code(s): I10 - ESSENTIAL (PRIMARY) HYPERTENSION (5) Aortic valve regurgitation Code(s): I35.1 - NONRHEUMATIC AORTIC (VALVE) INSUFFICIENCY Qualifiers: Cardiac valve disease etiology: nonrheumatic Qualified Code(s): I35.1 - Nonrheumatic aortic (valve) insufficiency Assessment/Plan 1. Clinical presentation suggests acute on chronic LV failure/CHF with underlying AF with RVR 2. AF with RVR on DOAC 3. History of HTN 4. History of melanoma PLAN: 1. Continue Eliquis 5 mg BID 2. CXR was reported cardiomegaly with bilateral pleural effusion and hilar markings 3. Consider CT chest and Pulmonary evaluation 4. Bronchodilator, nebulizer, O2 5. Continue Atenolol 100 mg QD and Diltiazem 180 mg QD as tolerated. May use Cardizem IVP as needed for rate control 6. Continue Enalapril 20 mg BID 7. Diuretics (Lasix 40 mg IV BID) and monitor renal function and electrolytes 8. Echocardiography to assess LV/RV and valvular function 9. Obtain records from Dr. Daniel Campos's office Further plans are to follow Seng Enriquez MD
[2019-11-04] MEDS ORDERED: dilTIAZem HCL 50 MG/10 ML - 10 ML VIAL IVPUSH ONE (10:28)
[2019-11-04 10:44] LABS: BASO % 0.6 % (0-2.0); EOS % 0.9 % (0-4.5); HEMATOCRIT 42.5 % (32.4-45.2); HEMOGLOBIN 13.5 GM/dl (10.7-15.3); LYMPH % 7.4 % (8-40); MCH 26.4 pg (25.7-33.7); MCHC 31.8 g/dl (32.0-36.0); MEAN CELL VOLUME 83.1 fl (80-96); MEAN PLT VOLUME 9.6 fl (7.5-11.1); MONO % 9.4 % (3.8-10.2); NEUT % 81.7 % (42.8-82.8); PLATELET COUNT 173 K/MM3 (134-434); RBC 5.11 M/mm3 (3.60-5.2); RDW 14.4 % (11.6-15.6); WHITE BLOOD COUNT 8.2 K/mm3 (4.0-10.8)
[2019-11-04] MEDS ORDERED: MAGNESIUM HYDROX 2400MG/30ML ORAL SUSPENSION 30 ML CUP PO ONE (18:38)
[2019-11-04] MEDS ORDERED: FUROSEMIDE 40 MG/4 ML INJECTABLE VIAL IVPUSH ONE (18:46)
[2019-11-04] MEDS ORDERED: POTASSIUM CHLORIDE TABS 20 MEQ TABLET.ER (FP) PO ONE (18:47)
[2019-11-04] MEDS ORDERED: ACETAMINOPHEN 1000 MG/100 ML VIAL (NON FORMULARY) IVPB PRN (18:47)
--- NOTE | 2019-11-04 18:57 | PN ---
Progress Note, Physician Chief Complaint: patient developed low grade fever, her breath is still labored, and Afib was fast during the morning History of Present Illness: 89 yo female admitted for rapid Afib, and congestive heart failure, continues to have difficulty breathing despite intravenous LAsix, CArdizem and Lopressor.treatment. In the afternoon she developed low grade fever. - Current Medication List Current Medications: Active Medications Acetaminophen (Ofirmev Injection -) 1,000 mg IVPB Q6H PRN PRN Reason: FEVER Stop: 11/05/19 18:48 Albuterol Sulfate (Ventolin 0.083% Nebulizer Soln -) 1 amp NEB Q6H PRN PRN Reason: SHORT OF BREATH/WHEEZING Last Admin: 11/04/19 15:56 Dose: 1 amp Apixaban (Eliquis -) 5 mg PO BID [facility] Last Admin: 11/04/19 09:21 Dose: 5 mg Atenolol (Tenormin -) 100 mg PO DAILY [facility] Last Admin: 11/04/19 09:21 Dose: 100 mg Diltiazem HCl (Cardizem Cd -) 180 mg PO DAILY [facility] Last Admin: 11/04/19 09:21 Dose: 180 mg Duloxetine HCl (Cymbalta -) 60 mg PO DAILY [facility] Last Admin: 11/04/19 10:43 Dose: 60 mg Enalapril Maleate (Vasotec -) 20 mg PO BID [facility] Last Admin: 11/04/19 09:22 Dose: 20 mg Furosemide (Lasix Injection -) 40 mg IVPUSH BID@0600,1400 [facility] Last Admin: 11/04/19 14:50 Dose: 40 mg Magnesium Oxide (Mag-Ox -) 400 mg PO BID [facility] Last Admin: 11/04/19 09:21 Dose: 400 mg Metoprolol Tartrate (Lopressor Injection -) 5 mg IVPUSH Q4H PRN PRN Reason: HYPERTENSION Potassium Chloride (K-Dur -) 40 meq PO DAILY [facility] Last Admin: 11/04/19 09:22 Dose: 40 meq - Objective Vital Signs: Vital Signs Temperature 100.3 F H 11/04/19 18:55 Pulse Rate 66 11/04/19 14:00 Respiratory Rate 19 11/04/19 14:00 Blood Pressure 137/58 L 11/04/19 14:00 O2 Sat by Pulse Oximetry (%) 92 L 11/04/19 14:00 Constitutional: Yes: No Distress, Calm Eyes: Yes: Conjunctiva Clear, EOM Intact HENT: Yes: Atraumatic, Normocephalic Neck: Yes: Supple, Trachea Midline Cardiovascular: Yes: Pulse Irregular Respiratory: Yes: Regular, Cough, On Nasal O2, Rhonchi (bilaterally), SOB on Exertion, Wheezes Gastrointestinal: Yes: Normal Bowel Sounds, Soft. No: Hepatomegaly, Splenomegaly Edema: No Peripheral Pulses WNL: Yes Neurological: Yes: Alert, Oriented Psychiatric: Yes: Alert, Oriented Labs: CBC, BMP 11/04/19 10:33 11/04/19 06:35 Problem List - Problems (1) CHF (congestive heart failure) Assessment/Plan: Lasix 40 mg iv bid cardiac enzymes were negative, ekg was unchanged, bnp is slightly elevated repeat CXR shows improvement of the pulmonary congestion and clearing of the right pleural effusion compared to CXR of 11/02/19 Code(s): I50.9 - HEART FAILURE, UNSPECIFIED Qualifiers: Heart failure type: diastolic Heart failure chronicity: acute on chronic Qualified Code(s): I50.33 - Acute on chronic diastolic (congestive) heart failure (2) Atrial fibrillation Assessment/Plan: continue Atenolol during the day it was difficult to control the HR continue Cardizem 180 mg po daily Lopressor 5 mg iv as needed to control HR Eliquis 5 mg bid Code(s): I48.91 - UNSPECIFIED ATRIAL FIBRILLATION (3) Essential hypertension Assessment/Plan: ATenolol 180 mg daily and CArdizem 180 mg daily Code(s): I10 - ESSENTIAL (PRIMARY) HYPERTENSION (4) Melanoma Assessment/Plan: s/p excision may need CT scan of lungs to R/o malignancy if pleural effusion does not respond to diuretics Code(s): C43.9 - MALIGNANT MELANOMA OF SKIN, UNSPECIFIED
[2019-11-04] MEDS: METOPROLOL TARTRATE 5 MG/5 ML VIAL IVPUSH PRN (20:41)
[2019-11-04] MEDS ORDERED: CEFTRIAXONE 1 GM in DEXTROSE 5%-WATER - 50 ML IVPB SCH (22:00)
[2019-11-05] MEDS: FUROSEMIDE 40 MG/4 ML INJECTABLE VIAL IVPUSH SCH ×2 (06:36→14:24)
[2019-11-05] MEDS: ALBUTEROL SO4 0.083% IH SOL 2.5 MG/3 ML VIAL.NEB. NEB PRN (06:36)
--- NOTE | 2019-11-05 07:14 | ECHO ---
Name: ERWIN RAUSCHUREEN Exam:Adult Echocardiogram Study Date: 11/04/2019 12:56 PM Age: 89 yrs Reason For Study: SALLY hou/ KENNA, SOB Height: 63 in Weight: 170 lb BSA: 1.8 m2 MMode/2D Measurements & Calculations IVSd: 1.7 cm Ao root diam: 2.9 cm LVIDd: 4.9 cm LA dimension: 5.2 cm LVIDs: 3.5 cm ACS: 1.9 cm LVPWd: 1.3 cm EDV(Teich): 111.6 ml LVOT diam: 1.8 cm ESV(Teich): 51.4 ml EDV(MOD-sp4): 84.0 ml Doppler Measurements & Calculations MV E max cher: 68.7 cm/sec MV dec slope: 739.9 cm/sec2 Ao V2 max: 132.0 cm/sec LV V1 max P.8 mmHg Ao max P.0 mmHg LV V1 mean P.8 mmHg Ao V2 mean: 91.1 cm/sec LV V1 max: 84.0 cm/sec Ao mean P.7 mmHg LV V1 mean: 65.5 cm/sec Ao V2 VTI: 22.6 cm LV V1 VTI: 16.8 cm ROSARIO(I,D): 1.9 cm2 ROSARIO(V,D): 1.6 cm2 MR max cher: 412.2 cm/sec SV(LVOT): 41.9 ml MR max P.0 mmHg TR max cher: 215.6 cm/sec PA V2 max: 69.4 cm/sec TR max P.8 mmHg PA max P.9 mmHg Procedure Study Quality: Fair. Left Ventricle The left ventricle is normal in size. There is mild concentric left ventricular hypertrophy. Left prosper tricular systolic function is normal. Ejection Fraction = 55-60%. Right Ventricle The right ventricle is normal size. The right ventricular systolic function is normal. Atria The left atrium is severely dilated. The right atrium is severely dilated. Mitral Valve The mitral valve is grossly normal. There is mild mitral regurgitation. Tricuspid Valve The tricuspid valve is not well visualized, but is grossly normal. There is mild to moderate tricuspi d regurgitation. There is mild pulmonary hypertension. Aortic Valve There is mild aortic valve thickening. Mild aortic regurgitation. Pulmonic Valve The pulmonic valve is not well visualized. Great Vessels The aortic root is normal size. Pericardium/Pleura Small pericardial effusion. Interpretation Summary LV: normal size,mild LVH,normal systolic function,EF 55-60% RV: Normal Biatria: severly diated, septum bulging to right suggestive of elevated LA pressure Mmild mitral regurgitation Mild to moderate tricuspid regurgitation ,mild pulmonary hypertension Mild aortic regurgitation Small pericardial effusion. Jignesh Ovalles 11/04/2019 03:17 PM
[2019-11-05 08:00] LABS: BASO % 0.5 % (0-2.0); EOS % 0.4 % (0-4.5); HEMATOCRIT 41.6 % (32.4-45.2); HEMOGLOBIN 13.4 GM/dl (10.7-15.3); LYMPH % 9.4 % (8-40); MCH 27.1 pg (25.7-33.7); MCHC 32.3 g/dl (32.0-36.0); MEAN CELL VOLUME 83.9 fl (80-96); MEAN PLT VOLUME 8.7 fl (7.5-11.1); MONO % 12.6 % (3.8-10.2); NEUT % 77.1 % (42.8-82.8); PLATELET COUNT 175 K/MM3 (134-434); RBC 4.96 M/mm3 (3.60-5.2); RDW 14.3 % (11.6-15.6); WHITE BLOOD COUNT 7.4 K/mm3 (4.0-10.8)
[2019-11-05 08:11] LABS: ALBUMIN 3.1 g/dl (3.4-5.0); BILIRUBIN,TOTAL 0.8 mg/dl (0.2-1); CALCIUM 9.3 mg/dl (8.5-10); CREATININE 0.9 mg/dl (0.55-1.3); POTASSIUM 3.2 mmol/L (3.5-5.1); TOT PROT 5.4 g/dl (6.4-8.2)
--- NOTE | 2019-11-05 09:44 | PN ---
Progress Note, Physician Chief Complaint: patient developed low grade fever, her breath is still labored but better than yesterday evening, responded to diuretic and Afib continued to be fast last night but now it is better CT of chest without contrast was ordered to R/O malignancy History of Present Illness: 89 yo female admitted for rapid Afib, and congestive heart failure, has slightly improved breathing compared to last night. Yesterday she received an extra dose of LAsix intravenous for a total of 120 mg/24 hours, CArdizem and Lopressor treatments This morning the patient is less dyspneic, and there is no audible wheezing. - Current Medication List Current Medications: Active Medications Acetaminophen (Ofirmev Injection -) 1,000 mg IVPB Q6H PRN PRN Reason: FEVER Stop: 11/05/19 18:48 Last Admin: 11/04/19 19:02 Dose: 1,000 mg Apixaban (Eliquis -) 5 mg PO BID [facility] Last Admin: 11/04/19 22:12 Dose: 5 mg Atenolol (Tenormin -) 100 mg PO DAILY [facility] Last Admin: 11/04/19 09:21 Dose: 100 mg Diltiazem HCl (Cardizem Cd -) 180 mg PO DAILY [facility] Last Admin: 11/04/19 09:21 Dose: 180 mg Duloxetine HCl (Cymbalta -) 60 mg PO DAILY [facility] Enalapril Maleate (Vasotec -) 20 mg PO BID [facility] Last Admin: 11/04/19 22:12 Dose: Not Given Furosemide (Lasix Injection -) 40 mg IVPUSH BID@0600,1400 [facility] Last Admin: 11/05/19 06:36 Dose: 40 mg Ceftriaxone Sodium (Ceftriaxone 1 Gm-D5w Bag) 50 mls @ 100 mls/hr IVPB DAILY [facility] Levalbuterol HCl (Xopenex) 0.31 mg IH RTID [facility] Magnesium Oxide (Mag-Ox -) 400 mg PO BID [facility] Last Admin: 11/04/19 22:12 Dose: 400 mg Methylprednisolone Sodium Succinate (Solu-Medrol -) 125 mg IVPUSH ONCE ONE Stop: 11/05/19 09:40 Methylprednisolone Sodium Succinate (Solu-Medrol -) 125 mg IVPUSH Q6H-IV [facility] Metoprolol Tartrate (Lopressor Injection -) 5 mg IVPUSH Q4H PRN PRN Reason: HYPERTENSION Last Admin: 11/04/19 20:41 Dose: 5 mg Potassium Chloride (K-Dur -) 40 meq PO DAILY [facility] Last Admin: 11/04/19 09:22 Dose: 40 meq Potassium Chloride (K-Dur -) 40 meq PO ONCE ONE Stop: 11/05/19 14:01 - Objective Vital Signs: Vital Signs Temperature 97.3 F L 11/05/19 06:00 Pulse Rate 107 H 11/05/19 06:00 Respiratory Rate 11/05/19 06:00 Blood Pressure 130/73 11/05/19 06:00 O2 Sat by Pulse Oximetry (%) 99 11/05/19 06:00 Constitutional: Yes: No Distress Eyes: Yes: Conjunctiva Clear, EOM Intact HENT: Yes: Atraumatic, Normocephalic Neck: Yes: Supple, Trachea Midline Cardiovascular: Yes: Regular Rate and Rhythm Respiratory: Yes: Regular, CTA Bilaterally Gastrointestinal: Yes: Soft, Abdomen, Obese. No: Hepatomegaly, Splenomegaly ...Rectal Exam: Yes: Deferred Breast(s): Yes: WNL Musculoskeletal: Yes: Muscle Weakness Extremities: No: Amputation, Calf Tenderness Edema: Yes Edema: LLE: 1+, RLE: 1+ Peripheral Pulses WNL: Yes Neurological: Yes: Alert, Oriented Psychiatric: Yes: Alert, Oriented Labs: CBC, BMP 11/05/19 07:20 11/05/19 07:20 - ....Imaging Cat Scan: Other (bibasilar atelectasis, left apical atelectasis vs pneumonia, moderate pericardial effusion) Other: Other (ECHO minimal pericardial effusion) Problem List - Problems (1) CHF (congestive heart failure) Assessment/Plan: Lasix 40 mg iv bid, replenish potassium levels cardiac enzymes were negative, ekg was unchanged, bnp is slightly elevated repeat CXR shows improvement of the pulmonary congestion and clearing of the right pleural effusion compared to CXR of 11/02/19 ECHO dilated atria, pulmonary HTN, small pericardial effusion, CT scan moderate pericardial effusion, bilateral pleural effusion and atelectasis Code(s): I50.9 - HEART FAILURE, UNSPECIFIED Qualifiers: Heart failure type: diastolic Heart failure chronicity: acute on chronic Qualified Code(s): I50.33 - Acute on chronic diastolic (congestive) heart failure (2) Atrial fibrillation Assessment/Plan: continue Atenolol changed Albuterol to Xopenex nebulizer due to increase in HR continue Cardizem 180 mg po daily Eliquis 5 mg bid Code(s): I48.91 - UNSPECIFIED ATRIAL FIBRILLATION (3) Essential hypertension Assessment/Plan: ATenolol 180 mg daily and CArdizem 180 mg daily Code(s): I10 - ESSENTIAL (PRIMARY) HYPERTENSION (4) Melanoma Assessment/Plan: s/p excision Ct scan of the chest does not show malignancy Code(s): C43.9 - MALIGNANT MELANOMA OF SKIN, UNSPECIFIED (5) Pneumonia Assessment/Plan: Ceftriaxone and Zithromax IV daily Code(s): J18.9 - PNEUMONIA, UNSPECIFIED ORGANISM
[2019-11-05] MEDS: CEFTRIAXONE 1 G/50 ML PREMIX 50 ML IVPB SCH (10:05)
[2019-11-05] MEDS: DULoxetine HCL 30 MG CAPSULE.DR PO SCH (10:10)
[2019-11-05] MEDS: POTASSIUM CHLORIDE TABS 20 MEQ TABLET.ER (FP) PO SCH (10:10)
[2019-11-05] MEDS: ATENOLOL 50 MG TABLET (FP) PO SCH (10:10)
[2019-11-05] MEDS: ENALAPRIL MALEATE 10 MG TABLET (FP) PO SCH ×2 (10:10→21:48)
[2019-11-05] MEDS ORDERED: methylPREDNISolone NA SUCC 125 MG/2 ML VIAL IVPUSH ONE (10:15)
[2019-11-05] MEDS: MAGNESIUM OXIDE 400 MG TABLET (FP) PO SCH ×2 (10:15→21:48)
[2019-11-05] MEDS: APIXABAN 5 MG TABLET PO SCH ×2 (10:25→21:48)
--- NOTE | 2019-11-05 11:33 | PN ---
Progress Note, Physician Chief Complaint: Dyspnea with rhonchi CT chest done this AM. Result pending History of Present Illness: Patient was seen and examined. Awake and alert. Chart was reviewed Denies chest pain or palpitations. (+) Dyspnea - Current Medication List Current Medications: Active Medications Acetaminophen (Ofirmev Injection -) 1,000 mg IVPB Q6H PRN PRN Reason: FEVER Stop: 11/05/19 18:48 Last Admin: 11/04/19 19:02 Dose: 1,000 mg Apixaban (Eliquis -) 5 mg PO BID [facility] Last Admin: 11/04/19 22:12 Dose: 5 mg Atenolol (Tenormin -) 100 mg PO DAILY [facility] Last Admin: 11/04/19 09:21 Dose: 100 mg Diltiazem HCl (Cardizem Cd -) 180 mg PO DAILY [facility] Last Admin: 11/04/19 09:21 Dose: 180 mg Duloxetine HCl (Cymbalta -) 60 mg PO DAILY [facility] Enalapril Maleate (Vasotec -) 20 mg PO BID [facility] Last Admin: 11/04/19 22:12 Dose: Not Given Furosemide (Lasix Injection -) 40 mg IVPUSH BID@0600,1400 [facility] Last Admin: 11/05/19 06:36 Dose: 40 mg Ceftriaxone Sodium (Ceftriaxone 1 Gm-D5w Bag) 50 mls @ 100 mls/hr IVPB DAILY [facility] Levalbuterol HCl (Xopenex) 0.31 mg IH RTID [facility] Magnesium Oxide (Mag-Ox -) 400 mg PO BID [facility] Last Admin: 11/04/19 22:12 Dose: 400 mg Methylprednisolone Sodium Succinate (Solu-Medrol -) 125 mg IVPUSH Q6H-IV [facility] Metoprolol Tartrate (Lopressor Injection -) 5 mg IVPUSH Q4H PRN PRN Reason: HYPERTENSION Last Admin: 11/04/19 20:41 Dose: 5 mg Potassium Chloride (K-Dur -) 40 meq PO DAILY [facility] Last Admin: 11/04/19 09:22 Dose: 40 meq Potassium Chloride (K-Dur -) 40 meq PO ONCE ONE Stop: 11/05/19 14:01 - Objective Vital Signs: Vital Signs Temperature 98.0 F 11/05/19 10:00 Pulse Rate 115 H 11/05/19 10:00 Respiratory Rate 19 11/05/19 10:00 Blood Pressure 132/83 11/05/19 10:00 O2 Sat by Pulse Oximetry (%) 94 L 11/05/19 10:00 Eyes: Yes: PERRL HENT: Yes: Atraumatic Neck: Yes: Supple Cardiovascular: Yes: Tachycardia, Pulse Irregular, S1, S2 Respiratory: Yes: Rhonchi, SOB Gastrointestinal: Yes: Normal Bowel Sounds, Soft. No: Tenderness Edema: No Additional Findings/Remarks: - Review of Systems Constitutional: denies: Chills, Fever Cardiovascular: reports: Palpitations, Shortness of Breath. denies: Chest Pain Respiratory: reports: Cough, SOB. denies: Hemoptysis, Orthopnea, PND Gastrointestinal: denies: Abdominal Pain, Constipation, Diarrhea, Melena, Nausea , Rectal Bleeding, Vomiting Genitourinary: denies: Dysuria, Hematuria Musculoskeletal: reports: Joint Pain. denies: Back Pain Neurological: denies: Dizziness, Headache, Seizure, Syncope Labs: CBC, BMP 11/05/19 07:20 11/05/19 07:20 - ....Imaging Cat Scan: Pending (CT chest) Problem List - Problems (1) Atrial fibrillation Code(s): I48.91 - UNSPECIFIED ATRIAL FIBRILLATION (2) CHF (congestive heart failure) Code(s): I50.9 - HEART FAILURE, UNSPECIFIED Qualifiers: Heart failure type: diastolic Heart failure chronicity: acute on chronic Qualified Code(s): I50.33 - Acute on chronic diastolic (congestive) heart failure (3) Melanoma Code(s): C43.9 - MALIGNANT MELANOMA OF SKIN, UNSPECIFIED (4) Essential hypertension Code(s): I10 - ESSENTIAL (PRIMARY) HYPERTENSION (5) Aortic valve regurgitation Code(s): I35.1 - NONRHEUMATIC AORTIC (VALVE) INSUFFICIENCY Qualifiers: Cardiac valve disease etiology: nonrheumatic Qualified Code(s): I35.1 - Nonrheumatic aortic (valve) insufficiency (6) Tricuspid valve regurgitation Code(s): I07.1 - RHEUMATIC TRICUSPID INSUFFICIENCY Qualifiers: Cardiac valve disease etiology: nonrheumatic Qualified Code(s): I36.1 - Nonrheumatic tricuspid (valve) insufficiency (7) Shortness of breath Code(s): R06.02 - SHORTNESS OF BREATH Assessment/Plan 1. Clinical presentation suggests acute on chronic LV failure/CHF with underlying AF with RVR, rule out malignancy 2. AF with RVR on DOAC 3. History of HTN 4. History of melanoma PLAN: 1. Continue Eliquis [address] chest result pending and Pulmonary evaluation 3. Bronchodilator, nebulizer, O2 4. Continue Atenolol 100 mg QD and increase Diltiazem to 240 mg QD as tolerated. May use Cardizem IVP as needed for rate control. Currently on Lopressor 5 mg IV Q4 hours PRN 5. Continue Enalapril 20 mg BID 6. Diuretics (Lasix 40 mg IV BID) and monitor renal function and electrolytes 7. Echocardiography was reviewed 8. Obtain records from Dr. Daniel Campos's office Further plans are to follow Seng Enriquez MD
[2019-11-05] MEDS ORDERED: POTASSIUM CHLORIDE TABS 20 MEQ TABLET.ER (FP) PO ONE (14:00)
[2019-11-05] MEDS: LEVALBUTEROL HCL 0.31 MG/3 ML VIAL.NEB IH SCH ×2 (14:03→19:56)
[2019-11-05] MEDS: methylPREDNISolone NA SUCC 125 MG/2 ML VIAL IVPUSH SCH ×2 (15:10→20:16)
[2019-11-05] MEDS ORDERED: PT OWN MED DRAWER 7, Y5N ONE ×2 (16:05→19:55)
[2019-11-05] MEDS: AZITHROMYCIN IVPB 500 MG/250 ML BAG IVPB SCH (21:48)
[2019-11-05] MEDS: METOPROLOL TARTRATE 5 MG/5 ML VIAL IVPUSH PRN (22:01)
[2019-11-06] MEDS: methylPREDNISolone NA SUCC 125 MG/2 ML VIAL IVPUSH SCH ×2 (03:40→09:10)
[2019-11-06] MEDS: FUROSEMIDE 40 MG/4 ML INJECTABLE VIAL IVPUSH SCH (06:33)
[2019-11-06] MEDS: LEVALBUTEROL HCL 0.31 MG/3 ML VIAL.NEB IH SCH ×3 (08:10→20:12)
[2019-11-06 08:13] LABS: ALBUMIN 3.1 g/dl (3.4-5.0); BILIRUBIN,TOTAL 0.7 mg/dl (0.2-1); CALCIUM 9.5 mg/dl (8.5-10); CREATININE 1.1 mg/dl (0.55-1.3); POTASSIUM 3.3 mmol/L (3.5-5.1); TOT PROT 5.6 g/dl (6.4-8.2)
[2019-11-06] MEDS: CEFTRIAXONE 1 G/50 ML PREMIX 50 ML IVPB SCH (09:35)
[2019-11-06] MEDS: DULoxetine HCL 30 MG CAPSULE.DR PO SCH (10:00)
[2019-11-06] MEDS: POTASSIUM CHLORIDE TABS 20 MEQ TABLET.ER (FP) PO SCH (10:00)
[2019-11-06] MEDS: ATENOLOL 50 MG TABLET (FP) PO SCH (10:00)
[2019-11-06] MEDS: APIXABAN 5 MG TABLET PO SCH ×2 (10:00→21:48)
[2019-11-06] MEDS ORDERED: AZITHROMYCIN IVPB 500 MG/250 ML BAG IVPB SCH (10:00)
[2019-11-06] MEDS: MAGNESIUM OXIDE 400 MG TABLET (FP) PO SCH ×2 (10:00→21:48)
[2019-11-06] MEDS: ENALAPRIL MALEATE 10 MG TABLET (FP) PO SCH ×2 (10:00→21:50)
--- NOTE | 2019-11-06 12:11 | PN ---
Progress Note, Physician Chief Complaint: patient better with HR max 110 b/min, there is less cough, she was able to ambulate Ct chest showing atelectasis in the left upper lobe, or possible infiltrate, bilaterla pleural effusions, pericardial effusion - Current Medication List Current Medications: Active Medications Apixaban (Eliquis -) 5 mg PO BID [facility] Last Admin: 11/05/19 21:48 Dose: 5 mg Atenolol (Tenormin -) 100 mg PO DAILY [facility] Last Admin: 11/05/19 10:10 Dose: 100 mg Diltiazem HCl (Cardizem Cd -) 240 mg PO DAILY [facility] Last Admin: 11/05/19 12:00 Dose: 240 mg Duloxetine HCl (Cymbalta -) 60 mg PO DAILY [facility] Last Admin: 11/05/19 10:10 Dose: 60 mg Enalapril Maleate (Vasotec -) 20 mg PO BID [facility] Last Admin: 11/05/19 21:48 Dose: 20 mg Furosemide (Lasix Injection -) 40 mg IVPUSH BID@0600,1400 [facility] Last Admin: 11/06/19 06:33 Dose: 40 mg Ceftriaxone Sodium (Ceftriaxone 1 Gm-D5w Bag) 50 mls @ 100 mls/hr IVPB DAILY [facility] Last Admin: 11/05/19 10:05 Dose: 100 mls/hr Azithromycin (Zithromax 500mg Ivpb (Pre-Docked)) 500 mg in 250 mls @ 250 mls/ hr IVPB HS [facility] Last Admin: 11/05/19 21:48 Dose: 250 mls/hr Levalbuterol HCl (Xopenex) 0.31 mg IH RTID [facility] Last Admin: 11/05/19 19:56 Dose: 0.31 mg Magnesium Oxide (Mag-Ox -) 400 mg PO BID [facility] Last Admin: 11/05/19 21:48 Dose: 400 mg Methylprednisolone Sodium Succinate (Solu-Medrol -) 125 mg IVPUSH Q6H-IV [facility] Last Admin: 11/06/19 03:40 Dose: 125 mg Metoprolol Tartrate (Lopressor Injection -) 5 mg IVPUSH Q4H PRN PRN Reason: HYPERTENSION Last Admin: 11/05/19 22:01 Dose: 5 mg Potassium Chloride (K-Dur -) 40 meq PO DAILY [facility] Last Admin: 11/05/19 10:10 Dose: 40 meq - Objective Vital Signs: Vital Signs Temperature 97.7 F 11/06/19 06:00 Pulse Rate 80 11/06/19 06:00 Respiratory Rate 20 11/06/19 09:00 Blood Pressure 114/66 11/06/19 06:00 O2 Sat by Pulse Oximetry (%) 93 L 11/06/19 09:00 Constitutional: Yes: No Distress, Calm Eyes: Yes: Conjunctiva Clear, EOM Intact HENT: Yes: Atraumatic, Normocephalic Neck: Yes: Supple, Trachea Midline Cardiovascular: Yes: Pulse Irregular Respiratory: Yes: Regular, CTA Bilaterally, On Nasal O2 Gastrointestinal: Yes: Normal Bowel Sounds, Soft, Abdomen, Obese. No: Hepatomegaly, Splenomegaly Edema: No Peripheral Pulses WNL: Yes Neurological: Yes: Alert, Oriented Psychiatric: Yes: Alert, Oriented Labs: CBC, BMP 11/05/19 07:20 11/06/19 06:44 Problem List - Problems (1) CHF (congestive heart failure) Assessment/Plan: Lasix 40 mg iv bid, replenish potassium levels cardiac enzymes were negative, ekg was unchanged, bnp is slightly elevated ECHO dilated atria, pulmonary HTN, small pericardial effusion, CT scan moderate pericardial effusion, bilateral pleural effusion and atelectasis Code(s): I50.9 - HEART FAILURE, UNSPECIFIED Qualifiers: Heart failure type: diastolic Heart failure chronicity: acute on chronic Qualified Code(s): I50.33 - Acute on chronic diastolic (congestive) heart failure (2) Atrial fibrillation Assessment/Plan: continue Atenolol changed Albuterol to Xopenex nebulizer due to increase in HR continue Cardizem 180 mg po daily Eliquis 5 mg bid Code(s): I48.91 - UNSPECIFIED ATRIAL FIBRILLATION (3) Essential hypertension Assessment/Plan: ATenolol 180 mg daily and CArdizem 180 mg daily Code(s): I10 - ESSENTIAL (PRIMARY) HYPERTENSION (4) Melanoma Assessment/Plan: s/p excision Ct scan of the chest does not show malignancy Code(s): C43.9 - MALIGNANT MELANOMA OF SKIN, UNSPECIFIED (5) Pneumonia Assessment/Plan: Ceftriaxone and Zithromax IV daily Code(s): J18.9 - PNEUMONIA, UNSPECIFIED ORGANISM
--- NOTE | 2019-11-06 15:10 | CON.PULM ---
Consult Consult Specialty:: PULMONARY Referred by:: SCOTT Reason for Consultation:: SOB/COUGH - History of Present Illness Chief Complaint: SOB/COUGH History of Present Illness: Patient is an 89 year old female with underlying history of AF with RVR, mild to moderate AR, HTN and melanoma who presented from [facility] with increased shortness of breath. Patient also was found to have AF with RVR at 140-150 bpm especially after Albuterol nebulizer treatment. She denies chest pain. She denies paroxysmal nocturnal dyspnea or orthopnea. She denies fever or chills. She denies nausea, vomiting, diarrhea or abdominal pain. She denies headache or lightheadedness. 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 Cardio/Vascular: Yes: AFIB, Aortic Insufficiency, CHF, HTN Pulmonary: Yes: Other (cough, wheezing) ...: No Psych: Yes: Depression Musculoskeletal: Yes: Osteoarthritis - Past Surgical History Additional Surgical History: Melanoma surgery, carpal tunnel surgery - Alcohol/Substance Use Hx Alcohol Use: No - Smoking History Smoking history: Never smoked Have you smoked in the past 12 months: No Aproximately how many cigarettes per day: 0 Home Medications - Allergies Allergies/Adverse Reactions: Allergies Allergy/AdvReac Type Severity Reaction Status Date / Time No Known Allergies Allergy Verified 11/24/17 17:25 - Home Medications Home Medications: Ambulatory Orders Apixaban [Eliquis] 5 mg PO BID 11/03/19 Atenolol [Tenormin -] 100 mg PO DAILY 11/03/19 Chlorthalidone 25 mg PO BID 11/03/19 Diltiazem Cd [Cardizem Cd -] 180 mg PO DAILY 11/03/19 Docusate Sodium [Colace] 100 mg PO DAILY 11/03/19 Duloxetine HCl 30 mg PO BID 11/03/19 Enalapril Maleate [Vasotec] 40 mg PO DAILY 11/03/19 Lidocaine 5% Patch [Lidoderm Patch -] 1 patch TP DAILY 11/03/19 Potassium Chloride 10 meq PO DAILY 11/03/19 Family Medical History Family History: Unremarkable Review of Systems - Review of Systems Constitutional: denies: Fever Eyes: denies: Blurred Vision HENT: denies: Difficult Swallowing Neck: denies: Decreased ROM Cardiovascular: denies: Chest Pain Respiratory: reports: Exercise Intolerance, SOB, SOB on Exertion, Wheezing. denies: Hemoptysis Gastrointestinal: denies: Abdominal Pain Genitourinary: denies: Burning Physical Exam Vital Sings: Vital Signs Temperature 97.6 F 11/06/19 14:12 Pulse Rate 74 11/06/19 14:12 Respiratory Rate 21 H 11/06/19 14:12 Blood Pressure 112/55 L 11/06/19 14:12 O2 Sat by Pulse Oximetry (%) 99 11/06/19 14:12 Constitutional: Yes: Calm Eyes: Yes: EOM Intact HENT: Yes: Normocephalic Neck: Yes: Trachea Midline Cardiovascular: Yes: Pulse Irregular, S1, S2 Respiratory: Yes: Rales, Wheezes Gastrointestinal: Yes: Normal Bowel Sounds Edema: No Labs: CBC, BMP 11/05/19 07:20 11/06/19 06:44 Imaging - Results Chest X-ray: Report Reviewed, Image Reviewed Cat Scan: Report Reviewed, Image Reviewed Problem List - Problems (1) Atrial fibrillation Code(s): I48.91 - UNSPECIFIED ATRIAL FIBRILLATION (2) CHF (congestive heart failure) Code(s): I50.9 - HEART FAILURE, UNSPECIFIED Qualifiers: Heart failure type: diastolic Heart failure chronicity: acute on chronic Qualified Code(s): I50.33 - Acute on chronic diastolic (congestive) heart failure (3) Shortness of breath Code(s): R06.02 - SHORTNESS OF BREATH (4) DVT prophylaxis Code(s): BSA3406 - (5) Essential hypertension Code(s): I10 - ESSENTIAL (PRIMARY) HYPERTENSION Assessment/Plan SUPPLEMENTAL O2 VENTRICULAR RATE CONTROL DIURETICS BRONCHODILATORS TAPER STEROIDS AND D/C ? NEED FOR ANTIBIOTICS CARDIO FOLLOW UP WILL FOLLOW THANK YOU Emily CHAMBERLAIN MD
--- NOTE | 2019-11-06 18:32 | CONSULT ---
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 Cardiovascular: Yes: AFIB, Aortic Insufficiency, CHF, HTN Pulmonary: Yes: Other (cough, wheezing) ...: No Heme/Onc: Yes: Cancer (Melanoma) Psych: Yes: Depression Musculoskeletal: Yes: Osteoarthritis - Smoking History Smoking history: Never smoked Have you smoked in the past 12 months: No Aproximately how many cigarettes per day: 0 - Alcohol/Substance Use Hx Alcohol Use: No History - Admission Reason For Visit: CONGESTIVE HEART FAILURE - Hearing Hearing: Normal Hearing Aide: No With Patient: No Speech Evaluation - Communication Primary Language: KHMER Communication: Yes: Within Normal Limits, Simple Responses Oral Expression Ability: Yes: Mild Impairment - Speech Production Apraxia: No Able to Make Needs Known: Yes: WNL Intelligibility: Yes: WNL - Speech Characteristics Voice Loudness: Normal Voice Pitch: Yes: Normal Voice Phonatory-based Quality: Yes: Normal Speech Pattern: Normal Nasal Resonance: Normal Articulation: Yes: Precise Rate of Speech: Intact Voice Comment: Vocal quality and airway protection appears WNL - Language/Auditory Comprehension Follows: Yes: 1 Stage Simple Commands (WFL), 2 Stage Simple Commands (WFL) Observation: Able to respond to yes/no queries: Yes, Yes/No Confusion: No, Comprehends Conversational Speech: Yes, Benefits from Slow Speech: No, Benefits from Repetiton: No, Benefits from Increased Volume of Speech: Yes - Language/Verbal Expression Able to Respond to Simple Queries: Yes: WNL Able to Communicate Wants and Needs: Yes: WNL Functional Communication Status: Yes: WNL Aware of Errors: Yes Attempts to Correct Errors: Yes Use of Gestures: No Written Expression: Not examined Oral Expression: WFL Reading Comprehension: Not examined Calculations: Not examined Attention: Yes: Intact - Memory/Perception jail Memory: Yes: Mildly Impaired Short Term Memory: Yes: WNL - Swallow Evaluation/Bedside Assessment Current Nutritional Intake: Regular (Chol/fat/sodium controlled regular consistency), Thin Liquids Oral Secretions: Yes: WFL Tracheostomy Present: No Patient on Ventilator: No Dentition: Yes: Adequate, Edentulous, Missing Teeth (molars) Facial Symmetry at Rest: Symmetrical Facial Symmetry on Retraction: Symmetrical Facial Movement: Controlled Sensation: Normal Facial Comment: WFL for speech and swallowing purposes Against Resistance Opening: Normal Against Resistance Closing: Normal Pucker Lips: Normal Smile: Normal Lips, Comment: WFL for speech and swallowing purposes Lingual Movement: Normal Lingual Speed of Movement: Normal Lingual Movement Strgth Against Opposition: Normal Lingual Movement Characteristics: Normal Lingual Comment: WFL for speech and swallowing purposes Soft Palate Description: Normal Color Hard Palate Description: Normal Color Gag Reflex: Strong Velopharyngeal Movement: Normal Laryngeal Elevation: WFL Laryngeal Movement: Able to Palpate Needs Assistance: Yes Rate of Intake: WFL Bolus Size: WFL Labial Seal: WFL Chewing: WFL Oral Prep Time: WFL A-P Transit: WFL Timing of Swallow: WFL Odynophagia: Oral (oral prep stage) Coughing/Throat Clear: No Change in Voice: No Other Findings/Remarks: 89 yo female seen at chairside on unit after dinner for swallow eval to r/o dyphagia with family members present during this session. Pt is verbal, A&Ox3 cooperative. Pt presents with CHF, A-Fibm HTN melanoma and developing PNA. CC : dysnea. 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 while eating eggs and speaking with family. Pt is being treated for chest congestion and was reportedly wheezing (Not observed). Current diet: Regular bite sized solids with thin liquids. Pt goven po trials of purees, soft and bite sized regular solids with minimal assistance revealed good acceptance, adequate mastication and A-P transport. Pharyngeal swallow appears timely with no cough or change in respiration at this time. Thin liquids trials via cup without assistance were unremarkable for dysphagia and / or aspiration at this time. Recommendations - Speech Evaluation, Impression/Plan Impression: Pt is able to tolerate purees, soft and regular solids with thin liquids without s/s of aspiration at this time. Adequate labial containment, mastication, transport and with a brisk pharyngeal swallow observed. No evidence of aspiration-like behaviors observed during this session. Speech and language are within functional limits for her environment at this time. Wrist Hemmer Goals: Tolerate the least restrictive diet without s/s of aspiration. Short Term Goals: Tolerate purees, soft, regualr solids with thin liquids diet without s/s of aspiration. Recommended Frequency for Therapy: Follow Up PRN - Disposition Discharge to: To be Determined - Dysphagia Impressions/Plan Dysphagia Impressions: Minimal Impairment *Silent aspiration: cannot be R/O at bedside Dysphagia Treatment Plan: Small Bites, Chin Tuck/Down, Safe Rate, 1/2 tsp. at a time, OOB for meals, OOB for 1 h. after meals, Other (alternate liquids for every 2-3 bites of solids.) Dysphagia Evaluation Summary: continue regular solids with thin liquids as tolerated. Observe standard aspiration precautions. Chin tuck with alternate sips of liquids for every 2-3 bites of solids for liquid washdown. Crush meds in applesauce for ease of swallow. Results given verbally to charge weigher and to PCP via chart. DRIVER LICENSE EXAMINER to follow up as needed. - Recommendations Diet Consistency: Regular, 1 - 2 Soft Items Medication Administration: Crushed with applesauce Liquids: Thin Liquids
[2019-11-06] MEDS ORDERED: PT OWN MED DRAWER 7, Y5N ONE (19:57)
[2019-11-06] MEDS: AZITHROMYCIN IVPB 500 MG/250 ML BAG IVPB SCH (21:50)
[2019-11-06] MEDS: LIDOCAINE PATCH REMOVAL MC SCH (21:51)
[2019-11-07] MEDS: methylPREDNISolone NA SUCC 40 MG/1 ML VIAL IVPUSH SCH ×4 (02:35→17:52)
[2019-11-07] MEDS ORDERED: PT OWN MED DRAWER 7, Y5N ONE ×3 (04:27→20:00)
[2019-11-07] MEDS: LEVALBUTEROL HCL 0.31 MG/3 ML VIAL.NEB IH SCH ×5 (04:30→20:15)
[2019-11-07] MEDS: FUROSEMIDE 40 MG/4 ML INJECTABLE VIAL IVPUSH SCH ×3 (06:55→13:43)
[2019-11-07] MEDS: METOPROLOL TARTRATE 5 MG/5 ML VIAL IVPUSH PRN (08:27)
--- NOTE | 2019-11-07 09:12 | PN ---
Progress Note, Physician Chief Complaint: Not in distress Tolerating therapy History of Present Illness: Patient was seen and examined. Awake and alert. Chart was reviewed Denies chest pain or palpitations. Periods of RVR with underlying AF Received extra Lopressor IV for rate control - Current Medication List Current Medications: Active Medications Acetaminophen (Tylenol -) 1,000 mg PO Q6H PRN PRN Reason: PAIN LEVEL 6-10 Apixaban (Eliquis -) 5 mg PO BID [facility] Last Admin: 11/06/19 21:48 Dose: 5 mg Atenolol (Tenormin -) 100 mg PO DAILY [facility] Last Admin: 11/06/19 10:00 Dose: 100 mg Diltiazem HCl (Cardizem Cd -) 240 mg PO DAILY [facility] Last Admin: 11/06/19 10:05 Dose: 240 mg Duloxetine HCl (Cymbalta -) 60 mg PO DAILY [facility] Last Admin: 11/06/19 10:00 Dose: 60 mg Enalapril Maleate (Vasotec -) 20 mg PO BID [facility] Last Admin: 11/06/19 21:50 Dose: 20 mg Furosemide (Lasix Injection -) 40 mg IVPUSH BID@0600,1400 [facility] Last Admin: 11/07/19 06:55 Dose: 40 mg Ceftriaxone Sodium (Ceftriaxone 1 Gm-D5w Bag) 50 mls @ 100 mls/hr IVPB DAILY [facility] Last Admin: 11/06/19 09:35 Dose: 100 mls/hr Azithromycin (Zithromax 500mg Ivpb (Pre-Docked)) 500 mg in 250 mls @ 250 mls/ hr IVPB HS [facility] Last Admin: 11/06/19 21:50 Dose: 250 mls/hr Levalbuterol HCl (Xopenex) 0.31 mg IH RTID [facility] Last Admin: 11/07/19 09:08 Dose: 0.31 mg Lidocaine (Lidoderm Patch -) 2 patch TP DAILY [facility] Magnesium Oxide (Mag-Ox -) 400 mg PO BID [facility] Last Admin: 11/06/19 21:48 Dose: 400 mg Methylprednisolone Sodium Succinate (Solu-Medrol -) 40 mg IVPUSH Q8H-IV [facility] Last Admin: 11/07/19 02:35 Dose: 40 mg Metoprolol Tartrate (Lopressor Injection -) 5 mg IVPUSH Q4H PRN PRN Reason: HYPERTENSION Last Admin: 02/13/20 08:27 Dose: 5 mg Miscellaneous (Lidoderm Patch Removal) 1 each MC DAILY@2200 [facility] Last Admin: 11/06/19 21:51 Dose: 1 each Potassium Chloride (K-Dur -) 40 meq PO DAILY [facility] Last Admin: 11/06/19 10:00 Dose: 40 meq - Objective Vital Signs: Vital Signs Temperature 97.6 F 11/07/19 06:00 Pulse Rate 149 H 11/07/19 08:27 Respiratory Rate 20 11/07/19 08:23 Blood Pressure 125/83 11/07/19 08:27 O2 Sat by Pulse Oximetry (%) 100 11/07/19 06:00 Neck: Yes: Supple Cardiovascular: Yes: Tachycardia, Pulse Irregular, S1, S2 Respiratory: Yes: Diminished Gastrointestinal: Yes: Normal Bowel Sounds, Soft. No: Tenderness Edema: No Additional Findings/Remarks: - Review of Systems Constitutional: denies: Chills, Fever Cardiovascular: reports: Palpitations, Shortness of Breath. denies: Chest Pain Respiratory: reports: Cough, SOB. denies: Hemoptysis, Orthopnea, PND Gastrointestinal: denies: Abdominal Pain, Constipation, Diarrhea, Melena, Nausea , Rectal Bleeding, Vomiting Genitourinary: denies: Dysuria, Hematuria Musculoskeletal: reports: Joint Pain. denies: Back Pain Neurological: denies: Dizziness, Headache, Seizure, Syncope - ....Imaging Cat Scan: Report Reviewed (Chest CT noted) Problem List - Problems (1) Atrial fibrillation Code(s): I48.91 - UNSPECIFIED ATRIAL FIBRILLATION (2) CHF (congestive heart failure) Code(s): I50.9 - HEART FAILURE, UNSPECIFIED Qualifiers: Heart failure type: diastolic Heart failure chronicity: acute on chronic Qualified Code(s): I50.33 - Acute on chronic diastolic (congestive) heart failure (3) Melanoma Code(s): C43.9 - MALIGNANT MELANOMA OF SKIN, UNSPECIFIED (4) Essential hypertension Code(s): I10 - ESSENTIAL (PRIMARY) HYPERTENSION (5) Aortic valve regurgitation Code(s): I35.1 - NONRHEUMATIC AORTIC (VALVE) INSUFFICIENCY Qualifiers: Cardiac valve disease etiology: nonrheumatic Qualified Code(s): I35.1 - Nonrheumatic aortic (valve) insufficiency (6) Tricuspid valve regurgitation Code(s): I07.1 - RHEUMATIC TRICUSPID INSUFFICIENCY Qualifiers: Cardiac valve disease etiology: nonrheumatic Qualified Code(s): I36.1 - Nonrheumatic tricuspid (valve) insufficiency (7) Shortness of breath Code(s): R06.02 - SHORTNESS OF BREATH Assessment/Plan 1. Clinical presentation suggests acute on chronic LV failure/CHF with underlying AF with RVR 2. CT chest finding of pneumonia 3. AF with RVR on DOAC 4. History of HTN 5. History of melanoma PLAN: 1. Continue Eliquis [address] chest result noted 3. Bronchodilator, nebulizer, O2 and empiric antibiotics 4. Continue Atenolol 100 mg QD and Diltiazem to 240 mg QD (further titrated up to 300 mg if needed) as tolerated. May use Cardizem IVP as needed for rate control. Currently on Lopressor 5 mg IV Q4 hours PRN 5. Continue Enalapril 20 mg BID 6. Diuretics (Lasix 40 mg IV BID) and monitor renal function and electrolytes 7. Obtain records from Dr. Daniel Campos's office for review Further plans are to follow Seng Enriquez MD
[2019-11-07] MEDS: POTASSIUM CHLORIDE TABS 20 MEQ TABLET.ER (FP) PO SCH (09:27)
[2019-11-07] MEDS: DULoxetine HCL 30 MG CAPSULE.DR PO SCH (09:27)
[2019-11-07] MEDS: CEFTRIAXONE 1 G/50 ML PREMIX 50 ML IVPB SCH (09:27)
[2019-11-07] MEDS: APIXABAN 5 MG TABLET PO SCH ×2 (09:27→21:19)
[2019-11-07] MEDS: MAGNESIUM OXIDE 400 MG TABLET (FP) PO SCH ×2 (09:28→21:19)
[2019-11-07] MEDS: LIDOCAINE 5% TOPICAL PATCH TP SCH ×2 (09:31→10:17)
[2019-11-07] MEDS: ATENOLOL 50 MG TABLET (FP) PO SCH (10:15)
[2019-11-07] MEDS: methylPREDNISolone NA SUCC 125 MG/2 ML VIAL IVPUSH SCH (10:18)
[2019-11-07] MEDS: ENALAPRIL MALEATE 10 MG TABLET (FP) PO SCH ×2 (11:02→21:23)
--- NOTE | 2019-11-07 16:00 | PN ---
Progress Note, Physician Chief Complaint: Patient better with max HR 110 b/min, Diltiazem was increased to 240 mg daily there is less cough but there is still wheezing; she is able to ambulate Ct chest showing atelectasis in the left upper lobe, or possible infiltrate, bilateral pleural effusions, pericardial effusion History of Present Illness: 89 yo female admitted for rapid Afib, and congestive heart failure, continues to experience shortness of breath and wheezing. She had a bed site swallow evaluation which was normal. She had no more fever. This morning the patient is less dyspneic, and there is no audible wheezing. - Current Medication List Current Medications: Active Medications Acetaminophen (Tylenol -) 1,000 mg PO Q6H PRN PRN Reason: PAIN LEVEL 6-10 Apixaban (Eliquis -) 5 mg PO BID [facility] Last Admin: 11/07/19 09:27 Dose: 5 mg Atenolol (Tenormin -) 100 mg PO DAILY [facility] Last Admin: 11/07/19 10:15 Dose: 100 mg Diltiazem HCl (Cardizem Cd -) 240 mg PO DAILY [facility] Last Admin: 11/07/19 09:28 Dose: 240 mg Duloxetine HCl (Cymbalta -) 60 mg PO DAILY [facility] Last Admin: 11/07/19 09:27 Dose: 60 mg Enalapril Maleate (Vasotec -) 20 mg PO BID [facility] Last Admin: 11/07/19 11:02 Dose: 20 mg Furosemide (Lasix Injection -) 40 mg IVPUSH BID@0600,1400 [facility] Last Admin: 11/07/19 13:43 Dose: 40 mg Ceftriaxone Sodium (Ceftriaxone 1 Gm-D5w Bag) 50 mls @ 100 mls/hr IVPB DAILY [facility] Last Admin: 11/07/19 09:27 Dose: 100 mls/hr Azithromycin (Zithromax 500mg Ivpb (Pre-Docked)) 500 mg in 250 mls @ 250 mls/ hr IVPB HS [facility] Last Admin: 11/06/19 21:50 Dose: 250 mls/hr Levalbuterol HCl (Xopenex) 0.31 mg IH RQID [facility] Lidocaine (Lidoderm Patch -) 2 patch TP DAILY [facility] Last Admin: 11/07/19 10:17 Dose: Not Given Magnesium Oxide (Mag-Ox -) 400 mg PO BID [facility] Last Admin: 11/07/19 09:28 Dose: 400 mg Methylprednisolone Sodium Succinate (Solu-Medrol -) 40 mg IVPUSH Q8H-IV [facility] Last Admin: 11/07/19 10:17 Dose: Not Given Metoprolol Tartrate (Lopressor Injection -) 5 mg IVPUSH Q4H PRN PRN Reason: HYPERTENSION Last Admin: 11/07/19 08:27 Dose: 5 mg Miscellaneous (Lidoderm Patch Removal) 1 each MC DAILY@2200 [facility] Last Admin: 11/06/19 21:51 Dose: 1 each Potassium Chloride (K-Dur -) 40 meq PO DAILY [facility] Last Admin: 11/07/19 09:27 Dose: 40 meq - Objective Vital Signs: Vital Signs Temperature 97.7 F 11/07/19 15:04 Pulse Rate 102 H 11/07/19 15:04 Respiratory Rate 19 11/07/19 15:04 Blood Pressure 107/62 11/07/19 15:04 O2 Sat by Pulse Oximetry (%) 95 11/07/19 15:04 Constitutional: Yes: No Distress, Calm Eyes: Yes: WNL HENT: Yes: Atraumatic, Normocephalic Neck: Yes: Supple, Trachea Midline Cardiovascular: Yes: Pulse Irregular Respiratory: Yes: Regular, On Nasal O2, Rales, Rhonchi, SOB, Wheezes ( bilaterally) Gastrointestinal: Yes: Soft, Abdomen, Obese. No: Hepatomegaly, Splenomegaly Extremities: No: Amputation, Calf Tenderness Edema: No Peripheral Pulses WNL: Yes Neurological: Yes: Alert, Oriented Psychiatric: Yes: Alert, Oriented Labs: CBC, BMP 11/05/19 07:20 11/06/19 06:44 Problem List - Problems (1) CHF (congestive heart failure) Assessment/Plan: Lasix 40 mg iv bid, replenish potassium levels CT scan moderate pericardial effusion, bilateral pleural effusion and atelectasis Code(s): I50.9 - HEART FAILURE, UNSPECIFIED Qualifiers: Heart failure type: diastolic Heart failure chronicity: acute on chronic Qualified Code(s): I50.33 - Acute on chronic diastolic (congestive) heart failure (2) Atrial fibrillation Assessment/Plan: continue Atenolol changed Albuterol to Xopenex nebulizer due to increase in HR continue Cardizem 240 mg po daily Eliquis 5 mg bid Code(s): I48.91 - UNSPECIFIED ATRIAL FIBRILLATION (3) Essential hypertension Assessment/Plan: ATenolol 180 mg daily and CArdizem 240 mg daily Code(s): I10 - ESSENTIAL (PRIMARY) HYPERTENSION (4) Melanoma Assessment/Plan: s/p excision Ct scan of the chest does not show malignancy Code(s): C43.9 - MALIGNANT MELANOMA OF SKIN, UNSPECIFIED (5) Pneumonia Assessment/Plan: Ceftriaxone and Zithromax IV daily Code(s): J18.9 - PNEUMONIA, UNSPECIFIED ORGANISM
--- NOTE | 2019-11-07 18:52 | PN ---
Progress Note (short form) - Note Progress Note: PULMONARY VSS/AFEBRILE NO CHANGE IN EXAM CT CHEST: FLUID IN FISSURE LEFT UPPER LOBE /WITH B/L EFFUSIONS/CARDIOMEGALY CONTINUE CURRENT TREATMENT WILL DE-ESCALATE STEROIDS TOMORROW Emily CHAMBERLAIN MD Problem List - Problems (1) Atrial fibrillation Code(s): I48.91 - UNSPECIFIED ATRIAL FIBRILLATION (2) CHF (congestive heart failure) Code(s): I50.9 - HEART FAILURE, UNSPECIFIED Qualifiers: Heart failure type: diastolic Heart failure chronicity: acute on chronic Qualified Code(s): I50.33 - Acute on chronic diastolic (congestive) heart failure (3) Shortness of breath Code(s): R06.02 - SHORTNESS OF BREATH (4) DVT prophylaxis Code(s): [id number] - (5) Essential hypertension Code(s): I10 - ESSENTIAL (PRIMARY) HYPERTENSION
[2019-11-07] MEDS: AZITHROMYCIN IVPB 500 MG/250 ML BAG IVPB SCH (21:20)
[2019-11-07] MEDS: LIDOCAINE PATCH REMOVAL MC SCH (21:24)
[2019-11-08] MEDS: methylPREDNISolone NA SUCC 40 MG/1 ML VIAL IVPUSH SCH ×3 (02:37→18:36)
[2019-11-08] MEDS: FUROSEMIDE 40 MG/4 ML INJECTABLE VIAL IVPUSH SCH ×2 (05:54→14:00)
[2019-11-08 07:58] LABS: ALBUMIN 3.2 g/dl (3.4-5.0); BILIRUBIN,TOTAL 0.8 mg/dl (0.2-1); CALCIUM 9.2 mg/dl (8.5-10); CREATININE 1.3 mg/dl (0.55-1.3); POTASSIUM 3.4 mmol/L (3.5-5.1); TOT PROT 5.5 g/dl (6.4-8.2)
[2019-11-08] MEDS: LEVALBUTEROL HCL 0.31 MG/3 ML VIAL.NEB IH SCH ×4 (08:05→20:31)
[2019-11-08 08:09] LABS: HEMATOCRIT 46.5 % (32.4-45.2); HEMOGLOBIN 14.9 GM/dl (10.7-15.3); MCH 26.6 pg (25.7-33.7); MEAN CELL VOLUME 83.2 fl (80-96); MEAN PLT VOLUME 9.1 fl (7.5-11.1); PLATELET COUNT 213 K/MM3 (134-434); RDW 14.5 % (11.6-15.6); WHITE BLOOD COUNT 12.8 K/mm3 (4.0-10.8)
[2019-11-08] MEDS ORDERED: PT OWN MED DRAWER 7, Y5N ONE ×2 (09:06→20:30)
[2019-11-08 09:21] LABS: ANISOCYTOSIS 1+; PLATELET ESTIMATE ADEQUATE
[2019-11-08] MEDS: LIDOCAINE 5% TOPICAL PATCH TP SCH (10:21)
[2019-11-08] MEDS: DULoxetine HCL 30 MG CAPSULE.DR PO SCH (10:22)
[2019-11-08] MEDS: APIXABAN 5 MG TABLET PO SCH ×2 (10:23→22:07)
[2019-11-08] MEDS: POTASSIUM CHLORIDE TABS 20 MEQ TABLET.ER (FP) PO SCH (10:23)
[2019-11-08] MEDS: MAGNESIUM OXIDE 400 MG TABLET (FP) PO SCH ×2 (10:23→22:06)
[2019-11-08] MEDS: ATENOLOL 50 MG TABLET (FP) PO SCH (10:24)
[2019-11-08] MEDS: ENALAPRIL MALEATE 10 MG TABLET (FP) PO SCH ×2 (10:24→22:07)
[2019-11-08] MEDS: CEFTRIAXONE 1 G/50 ML PREMIX 50 ML IVPB SCH (10:25)
--- NOTE | 2019-11-08 16:05 | PN ---
Progress Note (short form) - Note Progress Note: PULMONARY VSS/AFEBRILE FAMILY VISITING NO CHANGE IN EXAM CT CHEST: FLUID IN FISSURE LEFT UPPER LOBE /WITH B/L EFFUSIONS/CARDIOMEGALY CONTINUE CURRENT TREATMENT STEROIDS REDUCED SWALLOW CONSULT NOTED Emily CHAMBERLAIN MD Problem List - Problems (1) Atrial fibrillation Code(s): I48.91 - UNSPECIFIED ATRIAL FIBRILLATION (2) CHF (congestive heart failure) Code(s): I50.9 - HEART FAILURE, UNSPECIFIED Qualifiers: Heart failure type: diastolic Heart failure chronicity: acute on chronic Qualified Code(s): I50.33 - Acute on chronic diastolic (congestive) heart failure (3) Shortness of breath Code(s): R06.02 - SHORTNESS OF BREATH (4) DVT prophylaxis Code(s): [id number] - (5) Essential hypertension Code(s): I10 - ESSENTIAL (PRIMARY) HYPERTENSION
--- NOTE | 2019-11-08 16:29 | PN ---
Progress Note, Physician History of Present Illness: Denies chest pain or palpitations, MG with walker assistance improved with rate -control afib. - Current Medication List Current Medications: Active Medications Acetaminophen (Tylenol -) 1,000 mg PO Q6H PRN PRN Reason: PAIN LEVEL 6-10 Apixaban (Eliquis -) 5 mg PO BID [facility] Last Admin: 11/08/19 10:23 Dose: 5 mg Atenolol (Tenormin -) 100 mg PO DAILY [facility] Last Admin: 11/08/19 10:24 Dose: 100 mg Diltiazem HCl (Cardizem Cd -) 240 mg PO DAILY [facility] Last Admin: 11/08/19 10:22 Dose: 240 mg Duloxetine HCl (Cymbalta -) 60 mg PO DAILY [facility] Last Admin: 11/08/19 10:22 Dose: 60 mg Enalapril Maleate (Vasotec -) 20 mg PO BID [facility] Last Admin: 11/08/19 10:24 Dose: 20 mg Furosemide (Lasix Injection -) 40 mg IVPUSH BID@0600,1400 [facility] Last Admin: 11/08/19 05:54 Dose: 40 mg Ceftriaxone Sodium (Ceftriaxone 1 Gm-D5w Bag) 50 mls @ 100 mls/hr IVPB DAILY [facility] Last Admin: 11/08/19 10:25 Dose: 100 mls/hr Azithromycin (Zithromax 500mg Ivpb (Pre-Docked)) 500 mg in 250 mls @ 250 mls/ hr IVPB HS [facility] Last Admin: 11/07/19 21:20 Dose: 250 mls/hr Levalbuterol HCl (Xopenex) 0.31 mg IH RQID [facility] Last Admin: 11/08/19 08:05 Dose: 0.31 mg Lidocaine (Lidoderm Patch -) 2 patch TP DAILY [facility] Last Admin: 11/08/19 10:21 Dose: 2 patch Magnesium Oxide (Mag-Ox -) 400 mg PO BID [facility] Last Admin: 11/08/19 10:23 Dose: 400 mg Methylprednisolone Sodium Succinate (Solu-Medrol -) 20 mg IVPUSH Q8H-IV [facility] Metoprolol Tartrate (Lopressor Injection -) 5 mg IVPUSH Q4H PRN PRN Reason: HYPERTENSION Last Admin: 11/07/19 08:27 Dose: 5 mg Miscellaneous (Lidoderm Patch Removal) 1 each MC DAILY@2200 [facility] Last Admin: 11/07/19 21:24 Dose: 1 each Potassium Chloride (K-Dur -) 40 meq PO DAILY [facility] Last Admin: 11/08/19 10:23 Dose: 40 meq - Objective Vital Signs: Vital Signs Temperature 97.9 F 11/08/19 14:22 Pulse Rate 84 11/08/19 14:22 Respiratory Rate 19 11/08/19 14:22 Blood Pressure 97/63 11/08/19 14:22 O2 Sat by Pulse Oximetry (%) 96 11/08/19 14:22 Constitutional: Yes: No Distress, Calm, Thin Neck: Yes: Supple Cardiovascular: Yes: Pulse Irregular Respiratory: Yes: Regular, Diminished, On Nasal O2 Gastrointestinal: Yes: Normal Bowel Sounds, Soft Edema: No Labs: CBC, BMP 11/08/19 07:07 11/08/19 07:07 - ....Imaging Chest X-ray: Report Reviewed (Improved congestion) Problem List - Problems (1) DESMOND (acute kidney injury) Code(s): N17.9 - ACUTE KIDNEY FAILURE, UNSPECIFIED (2) Azotemia Code(s): R79.89 - OTHER SPECIFIED ABNORMAL FINDINGS OF BLOOD CHEMISTRY (3) Hyponatremia with excess extracellular fluid volume Code(s): E87.1 - HYPO-OSMOLALITY AND HYPONATREMIA (4) Atrial fibrillation Code(s): I48.91 - UNSPECIFIED ATRIAL FIBRILLATION Qualifiers: Atrial fibrillation type: longstanding persistent Qualified Code(s): I48.11 - Longstanding persistent atrial fibrillation (5) CHF (congestive heart failure) Code(s): I50.9 - HEART FAILURE, UNSPECIFIED Qualifiers: Heart failure type: diastolic Heart failure chronicity: acute on chronic Qualified Code(s): I50.33 - Acute on chronic diastolic (congestive) heart failure (6) Shortness of breath Code(s): R06.02 - SHORTNESS OF BREATH Assessment/Plan CT CHEST: FLUID IN FISSURE LEFT UPPER LOBE /WITH B/L EFFUSIONS/CARDIOMEGALY 1. Acute on chronic LV failure/CHF with underlying AF with RVR 2. CT chest finding of pneumonia 3. AF with RVR on DOAC 4. History of HTN 5. History of melanoma 6. Azotemia, DESMOND 7. Hypervolemic Hyponatremia PLAN: 1. Continue Eliquis [address] chest result noted 3. Bronchodilator, IV steroid taper, O2 and empiric antibiotics 4. Continue Atenolol 100 mg QD and Diltiazem to 240 mg QD (further titrated up to 300 mg if needed) as tolerated. May use Cardizem IVP as needed for rate control. Currently on Lopressor 5 mg IV Q4 hours PRN 5. Continue Enalapril 20 mg BID 6. Change to oral diuretics and monitor renal function and electrolytes, replete K 7. Obtain records from Dr. Daniel Campos's office for review
--- NOTE | 2019-11-08 18:01 | PN ---
Progress Note, Physician Chief Complaint: patient better with HR max 110 b/min, there is less cough, she was able to ambulate Ct chest showing atelectasis in the left upper lobe, or possible infiltrate, bilaterla pleural effusions, pericardial effusion - Current Medication List Current Medications: Active Medications Acetaminophen (Tylenol -) 1,000 mg PO Q6H PRN PRN Reason: PAIN LEVEL 6-10 Apixaban (Eliquis -) 5 mg PO BID [facility] Last Admin: 11/08/19 10:23 Dose: 5 mg Atenolol (Tenormin -) 100 mg PO DAILY [facility] Last Admin: 11/08/19 10:24 Dose: 100 mg Diltiazem HCl (Cardizem Cd -) 240 mg PO DAILY [facility] Last Admin: 11/08/19 10:22 Dose: 240 mg Duloxetine HCl (Cymbalta -) 60 mg PO DAILY [facility] Last Admin: 11/08/19 10:22 Dose: 60 mg Enalapril Maleate (Vasotec -) 20 mg PO BID [facility] Last Admin: 11/08/19 10:24 Dose: 20 mg Furosemide (Lasix -) 20 mg PO DAILY [facility] Ceftriaxone Sodium (Ceftriaxone 1 Gm-D5w Bag) 50 mls @ 100 mls/hr IVPB DAILY [facility] Last Admin: 11/08/19 10:25 Dose: 100 mls/hr Azithromycin (Zithromax 500mg Ivpb (Pre-Docked)) 500 mg in 250 mls @ 250 mls/ hr IVPB HS [facility] Last Admin: 11/07/19 21:20 Dose: 250 mls/hr Levalbuterol HCl (Xopenex) 0.31 mg IH RQID [facility] Last Admin: 11/08/19 16:00 Dose: 0.31 mg Lidocaine (Lidoderm Patch -) 2 patch TP DAILY [facility] Last Admin: 11/08/19 10:21 Dose: 2 patch Magnesium Oxide (Mag-Ox -) 400 mg PO BID [facility] Last Admin: 11/08/19 10:23 Dose: 400 mg Methylprednisolone Sodium Succinate (Solu-Medrol -) 20 mg IVPUSH Q8H-IV [facility] Metoprolol Tartrate (Lopressor Injection -) 5 mg IVPUSH Q4H PRN PRN Reason: HYPERTENSION Last Admin: 11/07/19 08:27 Dose: 5 mg Miscellaneous (Lidoderm Patch Removal) 1 each MC DAILY@2200 [facility] Last Admin: 11/07/19 21:24 Dose: 1 each Potassium Chloride (K-Dur -) 40 meq PO DAILY [facility] Last Admin: 11/08/19 10:23 Dose: 40 meq - Objective Vital Signs: Vital Signs Temperature 97.9 F 11/08/19 14:22 Pulse Rate 84 11/08/19 14:22 Respiratory Rate 19 11/08/19 14:22 Blood Pressure 97/63 11/08/19 14:22 O2 Sat by Pulse Oximetry (%) 96 11/08/19 14:22 Labs: CBC, BMP 11/08/19 07:07 11/08/19 07:07 Problem List - Problems (1) CHF (congestive heart failure) Code(s): I50.9 - HEART FAILURE, UNSPECIFIED Qualifiers: Heart failure type: diastolic Heart failure chronicity: acute on chronic Qualified Code(s): I50.33 - Acute on chronic diastolic (congestive) heart failure (2) Atrial fibrillation Code(s): I48.91 - UNSPECIFIED ATRIAL FIBRILLATION Qualifiers: Atrial fibrillation type: longstanding persistent Qualified Code(s): I48.11 - Longstanding persistent atrial fibrillation (3) Essential hypertension Code(s): I10 - ESSENTIAL (PRIMARY) HYPERTENSION (4) Melanoma Code(s): C43.9 - MALIGNANT MELANOMA OF SKIN, UNSPECIFIED (5) Pneumonia Code(s): J18.9 - PNEUMONIA, UNSPECIFIED ORGANISM
[2019-11-08] MEDS: LIDOCAINE PATCH REMOVAL MC SCH (22:07)
[2019-11-08] MEDS: AZITHROMYCIN IVPB 500 MG/250 ML BAG IVPB SCH (22:08)
[2019-11-09] MEDS: methylPREDNISolone NA SUCC 40 MG/1 ML VIAL IVPUSH SCH ×2 (01:58→09:37)
--- NOTE | 2019-11-09 06:48 | PN ---
Progress Note (short form) - Note Progress Note: Chief Complaint: Events noted, notes reviewed, denies any dyspnea but audible wheeze noted, denies any orthopnea or PND, peripheral edema improved, denies any chest discomfort History of Present Illness: Seen and examined on telemetry. Events noted, notes reviewed, denies any dyspnea but audible wheeze noted, denies any orthopnea or PND, peripheral edema improved, denies any chest discomfort Medications: \ Current Medications Acetaminophen (Tylenol -) 1,000 mg PO Q6H PRN PRN Reason: PAIN LEVEL 6-10 Apixaban (Eliquis -) 5 mg PO BID [facility] Last Admin: 11/08/19 22:07 Dose: 5 mg Atenolol (Tenormin -) 100 mg PO DAILY [facility] Last Admin: 11/08/19 10:24 Dose: 100 mg Diltiazem HCl (Cardizem Cd -) 240 mg PO DAILY [facility] Last Admin: 11/08/19 10:22 Dose: 240 mg Duloxetine HCl (Cymbalta -) 60 mg PO DAILY [facility] Last Admin: 11/08/19 10:22 Dose: 60 mg Enalapril Maleate (Vasotec -) 20 mg PO BID [facility] Last Admin: 11/08/19 22:07 Dose: 20 mg Furosemide (Lasix -) 20 mg PO DAILY [facility] Ceftriaxone Sodium (Ceftriaxone 1 Gm-D5w Bag) 50 mls @ 100 mls/hr IVPB DAILY [facility] Last Admin: 11/08/19 10:25 Dose: 100 mls/hr Azithromycin (Zithromax 500mg Ivpb (Pre-Docked)) 500 mg in 250 mls @ 250 mls/ hr IVPB HS [facility] Last Admin: 11/08/19 22:08 Dose: 250 mls/hr Levalbuterol HCl (Xopenex) 0.31 mg IH RQID [facility] Last Admin: 11/08/19 20:31 Dose: 0.31 mg Lidocaine (Lidoderm Patch -) 2 patch TP DAILY [facility] Last Admin: 11/08/19 10:21 Dose: 2 patch Magnesium Oxide (Mag-Ox -) 400 mg PO BID [facility] Last Admin: 11/08/19 22:06 Dose: 400 mg Methylprednisolone Sodium Succinate (Solu-Medrol -) 20 mg IVPUSH Q8H-IV [facility] Last Admin: 02/15/20 01:58 Dose: 20 mg Metoprolol Tartrate (Lopressor Injection -) 5 mg IVPUSH Q4H PRN PRN Reason: HYPERTENSION Last Admin: 11/07/19 08:27 Dose: 5 mg Miscellaneous (Lidoderm Patch Removal) 1 each MC DAILY@2200 [facility] Last Admin: 11/08/19 22:07 Dose: 1 each Potassium Chloride (K-Dur -) 40 meq PO DAILY [facility] Last Admin: 11/08/19 10:23 Dose: 40 meq Review of Systems - Review of Systems Constitutional: denies: Chills, Fever Cardiovascular: As noted above Respiratory: reports: Cough but denies Sputum Production Gastrointestinal: denies: Nausea, Vomiting, Diarrhea, Constipation, Abdominal Pain Neurological: denies: Headaches Vital Signs: Last Vital Signs Temp Pulse Resp BP Pulse Ox 97.5 F L 73 20 106/76 98 11/08/19 21:20 11/08/19 21:20 11/08/19 21:20 11/08/19 21:20 11/08/19 21:20 Intake & Output 11/06/19 11/07/19 11/08/19 11/09/19 23:59 23:59 23:59 23:59 Intake Total 8575 438 0115 Balance 8044 102 6810 Weight 155 lb 0.4 oz 156 lb 148 lb 0.011 oz Neck: Supple Negative JVD No Bruit Respiratory: Diminished breath sounds at the bases bilaterally Cardiovascular: S1 S2 Irregularly Irregular Gastrointestinal: Soft Benign Normal Bowel Sounds Ext: Negative Edema Labs: CBC, BMP 11/08/19 07:07 11/08/19 07:07 Hepatic Panel Total Bilirubin 0.8 mg/dl (0.2-1) 11/08/19 07:07 AST 34 U/L (15-37) 11/08/19 07:07 ALT 33 U/L (13-61) 11/08/19 07:07 Alkaline Phosphatase 39 U/L (45-117) L 11/08/19 07:07 Albumin 3.2 g/dl (3.4-5.0) L 11/08/19 07:07 Assessment/Plan ASSESSMENT: 1. Acute on chronic class I-II NYHA classification LV diastolic failure, clinically resolved 2. Persistent atrial fibrillation with RVR on A/C with DOAC's/Eliquis 3. CAD with evidence of coronary artery calcification on CT scan of the chest angina pectoris 4. Pneumonia, clinically resolving 5. HTN 6. CKD with pre-renal azotemia, with acute exacerbation 7. History of melanoma 8. Hyponatremia and Hypokalemia PLAN: 1. Continue Eliquis 2. Continue Atenolol but if wheezing persists consider Bystolic as an alternative 3. Continue Cardizem CD 4. Continue Vasotec 5. Continue Lasix PO with caution considering the above noted CKD with acute exacerbation 6. Bronchodilators, IV steroids, O2 and antibiotics as per the primary team 7. As outlined in yesterday's note obtain records from Dr. Daniel Campos's office for review Adela Burrell M.D.
[2019-11-09] MEDS: LEVALBUTEROL HCL 0.31 MG/3 ML VIAL.NEB IH SCH ×4 (08:32→19:53)
[2019-11-09] MEDS ORDERED: PT OWN MED DRAWER 7, Y5N ONE ×4 (08:55→19:48)
[2019-11-09 09:01] LABS: ALBUMIN 3.1 g/dl (3.4-5.0); BILIRUBIN,TOTAL 0.8 mg/dl (0.2-1); CALCIUM 9.2 mg/dl (8.5-10); CREATININE 1.2 mg/dl (0.55-1.3); POTASSIUM 3.8 mmol/L (3.5-5.1); TOT PROT 5.5 g/dl (6.4-8.2)
[2019-11-09] MEDS: CEFTRIAXONE 1 G/50 ML PREMIX 50 ML IVPB SCH (09:34)
[2019-11-09] MEDS: DULoxetine HCL 30 MG CAPSULE.DR PO SCH (09:35)
[2019-11-09] MEDS: POTASSIUM CHLORIDE TABS 20 MEQ TABLET.ER (FP) PO SCH (09:36)
[2019-11-09] MEDS: APIXABAN 5 MG TABLET PO SCH ×2 (09:36→22:25)
[2019-11-09] MEDS: MAGNESIUM OXIDE 400 MG TABLET (FP) PO SCH (09:37)
[2019-11-09] MEDS: LIDOCAINE 5% TOPICAL PATCH TP SCH (09:37)
[2019-11-09] MEDS ORDERED: FUROSEMIDE 20 MG TABLET (FP) PO SCH (10:00)
[2019-11-09] MEDS ORDERED: FUROSEMIDE 40 MG TABLET (FP) PO SCH (10:00)
[2019-11-09] MEDS: ENALAPRIL MALEATE 10 MG TABLET (FP) PO SCH ×2 (10:20→22:25)
[2019-11-09] MEDS: ATENOLOL 50 MG TABLET (FP) PO SCH (10:25)
[2019-11-09 10:51] LABS: N-TERMINAL BNP 6356.8 pg/ml (5-450)
--- NOTE | 2019-11-09 15:32 | PN ---
Progress Note (short form) - Note Progress Note: Lethargic but arousable. Confused. Family at the bedside. Intake & Output 11/06/19 11/07/19 11/08/19 11/09/19 23:59 23:59 23:59 23:59 Intake Total 3031 180 4027 Balance 6934 306 2802 Weight 155 lb 0.4 oz 156 lb 148 lb 0.011 oz Last Vital Signs Temp Pulse Resp BP Pulse Ox 98.2 F 98 H 20 123/59 L 98 11/09/19 13:00 11/09/19 13:00 11/09/19 13:00 11/09/19 13:00 11/09/19 10:54 Active Medications Acetaminophen (Tylenol -) 1,000 mg PO Q6H PRN PRN Reason: PAIN LEVEL 6-10 Apixaban (Eliquis -) 5 mg PO BID [facility] Last Admin: 11/09/19 09:36 Dose: 5 mg Atenolol (Tenormin -) 100 mg PO DAILY [facility] Last Admin: 11/09/19 10:25 Dose: 100 mg Diltiazem HCl (Cardizem Cd -) 240 mg PO DAILY [facility] Last Admin: 11/09/19 10:19 Dose: 240 mg Duloxetine HCl (Cymbalta -) 60 mg PO DAILY [facility] Last Admin: 11/09/19 09:35 Dose: 60 mg Enalapril Maleate (Vasotec -) 20 mg PO BID [facility] Last Admin: 11/09/19 10:20 Dose: 20 mg Furosemide (Lasix -) 20 mg PO DAILY [facility] Last Admin: 11/09/19 10:22 Dose: 20 mg Ceftriaxone Sodium (Ceftriaxone 1 Gm-D5w Bag) 50 mls @ 100 mls/hr IVPB DAILY [facility] Last Admin: 11/09/19 09:34 Dose: 100 mls/hr Azithromycin (Zithromax 500mg Ivpb (Pre-Docked)) 500 mg in 250 mls @ 250 mls/ hr IVPB HS [facility] Last Admin: 11/08/19 22:08 Dose: 250 mls/hr Levalbuterol HCl (Xopenex) 0.31 mg IH RQID [facility] Last Admin: 11/09/19 12:36 Dose: 0.31 mg Lidocaine (Lidoderm Patch -) 2 patch TP DAILY [facility] Last Admin: 11/09/19 09:37 Dose: 2 patch Magnesium Oxide (Mag-Ox -) 400 mg PO BID [facility] Last Admin: 11/09/19 09:37 Dose: 400 mg Methylprednisolone Sodium Succinate (Solu-Medrol -) 20 mg IVPUSH Q8H-IV [facility] Last Admin: 11/09/19 09:37 Dose: 20 mg Metoprolol Tartrate (Lopressor Injection -) 5 mg IVPUSH Q4H PRN PRN Reason: HYPERTENSION Last Admin: 11/07/19 08:27 Dose: 5 mg Miscellaneous (Lidoderm Patch Removal) 1 each MC DAILY@2200 [facility] Last Admin: 11/08/19 22:07 Dose: 1 each Potassium Chloride (K-Dur -) 40 meq PO DAILY [facility] Last Admin: 11/09/19 09:36 Dose: 40 meq Gen: Lethargic but arousbale Neck: Supple Negative JVD No Bruit Respiratory: Scattered bilateral rhonchi, diminished breath sounds at the bases Cardiovascular: S1 S2 Irregularly Irregular Gastrointestinal: Soft Benign Normal Bowel Sounds Ext: Negative Edema Laboratory Results - last 24 hr 11/09/19 08:20 Sodium 135 L Potassium 3.8 Chloride 92 L Carbon Dioxide 34 H Anion Gap 9 BUN 67.0 H Creatinine 1.2 Est GFR (CKD-EPI)AfAm 46.73 Est GFR (CKD-EPI)NonAf 40.32 Random Glucose 143 H Calcium 9.2 Total Bilirubin 0.8 AST 34 ALT 39 Alkaline Phosphatase 34 L B-Natriuretic Peptide 6356.8 H Total Protein 5.5 L Albumin [address] CHEST: FLUID IN FISSURE LEFT UPPER LOBE /WITH B/L EFFUSIONS/CARDIOMEGALY Problem List - Problems (1) Atrial fibrillation Code(s): I48.91 - UNSPECIFIED ATRIAL FIBRILLATION (2) CHF (congestive heart failure) Code(s): I50.9 - HEART FAILURE, UNSPECIFIED Qualifiers: Heart failure type: diastolic Heart failure chronicity: acute on chronic Qualified Code(s): I50.33 - Acute on chronic diastolic (congestive) heart failure (3) Shortness of breath Code(s): R06.02 - SHORTNESS OF BREATH (4) DVT prophylaxis Code(s): AZL3912 - (5) Essential hypertension Code(s): I10 - ESSENTIAL (PRIMARY) HYPERTENSION IV Medrol Supplemental O2 as needed Aspiration precautions Eliquis BD [place] ABX Dr Felix
--- NOTE | 2019-11-09 19:08 | PN ---
Progress Note, Physician Chief Complaint: patient better with HR max 110 b/min, there is less cough, wheezing is persisting and HR still between 100 and 120 b/min most of the times History of Present Illness: 89 yo female admitted for rapid Afib, and congestive heart failure, continues to experience shortness of breath and wheezing. - Current Medication List Current Medications: Active Medications Acetaminophen (Tylenol -) 1,000 mg PO Q6H PRN PRN Reason: PAIN LEVEL 6-10 Apixaban (Eliquis -) 5 mg PO BID [facility] Last Admin: 11/09/19 09:36 Dose: 5 mg Carvedilol (Coreg -) 25 mg PO Q12H [facility] Diltiazem HCl (Cardizem Cd -) 240 mg PO DAILY [facility] Last Admin: 11/09/19 10:19 Dose: 240 mg Duloxetine HCl (Cymbalta -) 60 mg PO DAILY [facility] Last Admin: 11/09/19 09:35 Dose: 60 mg Enalapril Maleate (Vasotec -) 20 mg PO BID [facility] Last Admin: 11/09/19 10:20 Dose: 20 mg Furosemide (Lasix -) 20 mg PO DAILY [facility] Last Admin: 11/09/19 10:22 Dose: 20 mg Ceftriaxone Sodium (Ceftriaxone 1 Gm-D5w Bag) 50 mls @ 100 mls/hr IVPB DAILY [facility] Last Admin: 11/09/19 09:34 Dose: 100 mls/hr Azithromycin (Zithromax 500mg Ivpb (Pre-Docked)) 500 mg in 250 mls @ 250 mls/ hr IVPB HS [facility] Last Admin: 11/08/19 22:08 Dose: 250 mls/hr Levalbuterol HCl (Xopenex) 0.31 mg IH RQID [facility] Last Admin: 11/09/19 16:29 Dose: 0.31 mg Lidocaine (Lidoderm Patch -) 2 patch TP DAILY [facility] Last Admin: 11/09/19 09:37 Dose: 2 patch Magnesium Oxide (Mag-Ox -) 400 mg PO DAILY [facility] Methylprednisolone Sodium Succinate (Solu-Medrol -) 30 mg IVPUSH Q8H-IV [facility] Metoprolol Tartrate (Lopressor Injection -) 5 mg IVPUSH Q4H PRN PRN Reason: HYPERTENSION Last Admin: 11/07/19 08:27 Dose: 5 mg Miscellaneous (Lidoderm Patch Removal) 1 each MC DAILY@2200 [facility] Last Admin: 11/08/19 22:07 Dose: 1 each Potassium Chloride (K-Dur -) 40 meq PO DAILY [facility] Last Admin: 11/09/19 09:36 Dose: 40 meq - Objective Vital Signs: Vital Signs Temperature 97.4 F L 11/09/19 18:00 Pulse Rate 115 H 11/09/19 18:00 Respiratory Rate 19 11/09/19 18:00 Blood Pressure 108/67 11/09/19 18:00 O2 Sat by Pulse Oximetry (%) 92 L 11/09/19 18:00 Constitutional: Yes: No Distress, Calm Eyes: Yes: Conjunctiva Clear, EOM Intact HENT: Yes: Atraumatic, Normocephalic Cardiovascular: Yes: Tachycardia, Pulse Irregular Respiratory: Yes: On Nasal O2, SOB, SOB on Exertion, Tachypnea, Wheezes Gastrointestinal: Yes: Soft, Abdomen, Obese Extremities: No: Calf Tenderness Edema: No Peripheral Pulses WNL: Yes Integumentary: Yes: WNL Neurological: Yes: Alert, Oriented Psychiatric: Yes: Alert, Oriented Labs: CBC, BMP 11/08/19 07:07 11/09/19 08:20 - ....Imaging Chest X-ray: Other (improved, no pleural effisions present) Problem List - Problems (1) CHF (congestive heart failure) Assessment/Plan: decreased Lasix to 20 mg daily, Code(s): I50.9 - HEART FAILURE, UNSPECIFIED Qualifiers: Heart failure type: diastolic Heart failure chronicity: acute on chronic Qualified Code(s): I50.33 - Acute on chronic diastolic (congestive) heart failure (2) Atrial fibrillation Assessment/Plan: stopped Atenolol, started Bystolic changed Albuterol to Xopenex nebulizer due to increase in HR continue Cardizem 240 mg po daily Eliquis 5 mg bid Code(s): I48.91 - UNSPECIFIED ATRIAL FIBRILLATION Qualifiers: Atrial fibrillation type: longstanding persistent Qualified Code(s): I48.11 - Longstanding persistent atrial fibrillation (3) Essential hypertension Assessment/Plan: controlled Code(s): I10 - ESSENTIAL (PRIMARY) HYPERTENSION (4) Melanoma Assessment/Plan: s/p excision Ct scan of the chest does not show malignancy Code(s): C43.9 - MALIGNANT MELANOMA OF SKIN, UNSPECIFIED (5) Pneumonia Assessment/Plan: Ceftriaxone and Zithromax IV daily wheezing persisting increase Solumedrol to 30 mg q8hrs continue Xopenex Code(s): J18.9 - PNEUMONIA, UNSPECIFIED ORGANISM
[2019-11-09] MEDS: CARVEDILOL 25 MG TABLET (FP) PO SCH (19:53)
[2019-11-09] MEDS: LIDOCAINE PATCH REMOVAL MC SCH (22:25)
[2019-11-09] MEDS: AZITHROMYCIN IVPB 500 MG/250 ML BAG IVPB SCH (22:25)
[2019-11-10] MEDS: methylPREDNISolone NA SUCC 40 MG/1 ML VIAL IVPUSH SCH ×3 (01:41→18:48)
--- NOTE | 2019-11-10 06:41 | PN ---
Progress Note (short form) - Note Progress Note: Chief Complaint: Events noted, notes reviewed, denies any dyspnea but again audible wheeze noted- decrease in severity, denies any orthopnea or PND, peripheral edema improved, denies any chest discomfort History of Present Illness: Seen and examined on telemetry. Events noted, notes reviewed, denies any dyspnea but again audible wheeze noted- decrease in severity, denies any orthopnea or PND, peripheral edema improved, denies any chest discomfort Medications: Current Medications Acetaminophen (Tylenol -) 1,000 mg PO Q6H PRN PRN Reason: PAIN LEVEL 6-10 Apixaban (Eliquis -) 5 mg PO BID [facility] Last Admin: 11/09/19 22:25 Dose: 5 mg Carvedilol (Coreg -) 25 mg PO Q12H [facility] Last Admin: 11/09/19 19:53 Dose: 25 mg Diltiazem HCl (Cardizem Cd -) 240 mg PO DAILY [facility] Last Admin: 11/09/19 10:19 Dose: 240 mg Duloxetine HCl (Cymbalta -) 60 mg PO DAILY [facility] Last Admin: 11/09/19 09:35 Dose: 60 mg Enalapril Maleate (Vasotec -) 20 mg PO BID [facility] Last Admin: 11/09/19 22:25 Dose: 20 mg Furosemide (Lasix -) 20 mg PO DAILY [facility] Last Admin: 11/09/19 10:22 Dose: 20 mg Ceftriaxone Sodium (Ceftriaxone 1 Gm-D5w Bag) 50 mls @ 100 mls/hr IVPB DAILY [facility] Last Admin: 11/09/19 09:34 Dose: 100 mls/hr Azithromycin (Zithromax 500mg Ivpb (Pre-Docked)) 500 mg in 250 mls @ 250 mls/ hr IVPB HS [facility] Last Admin: 11/09/19 22:25 Dose: 250 mls/hr Levalbuterol HCl (Xopenex) 0.31 mg IH RQID [facility] Last Admin: 11/09/19 19:53 Dose: 0.31 mg Lidocaine (Lidoderm Patch -) 2 patch TP DAILY [facility] Last Admin: 11/09/19 09:37 Dose: 2 patch Magnesium Oxide (Mag-Ox -) 400 mg PO DAILY [facility] Methylprednisolone Sodium Succinate (Solu-Medrol -) 30 mg IVPUSH Q8H-IV [facility] Last Admin: 11/10/19 01:41 Dose: 30 mg Metoprolol Tartrate (Lopressor Injection -) 5 mg IVPUSH Q4H PRN PRN Reason: HYPERTENSION Last Admin: 11/07/19 08:27 Dose: 5 mg Miscellaneous (Lidoderm Patch Removal) 1 each MC DAILY@2200 [facility] Last Admin: 11/09/19 22:25 Dose: 1 each Potassium Chloride (K-Dur -) 40 meq PO DAILY [facility] Last Admin: 11/09/19 09:36 Dose: 40 meq Review of Systems - Review of Systems Constitutional: denies: Chills, Fever Cardiovascular: As noted above Respiratory: reports: Cough but denies Sputum Production Gastrointestinal: denies: Nausea, Vomiting, Diarrhea, Constipation, Abdominal Pain Neurological: denies: Headaches Vital Signs: Last Vital Signs Temp Pulse Resp BP Pulse Ox 97.4 F L 62 18 122/71 95 11/10/19 02:00 11/10/19 02:00 11/10/19 02:00 11/10/19 02:00 11/10/19 02:00 Intake & Output 11/07/19 11/08/19 11/09/19 11/10/19 23:59 23:59 23:59 23:59 Intake Total 700 1620 350 Balance 700 1620 350 Weight 155 lb 0.4 oz 156 lb 148 lb 0.011 oz Neck: Supple Negative JVD No Bruit Respiratory: Diminished breath sounds at the bases bilaterally Minimal Scattered Rhonchi Cardiovascular: S1 S2 Irregularly Irregular Gastrointestinal: Soft Benign Normal Bowel Sounds Ext: Negative Edema Labs: CBC, BMP 11/08/19 07:07 11/09/19 08:20 Troponin, BNP 11/09/19 08:20 B-Natriuretic Peptide 6356.8 H Assessment/Plan ASSESSMENT: 1. Acute on chronic class I-II NYHA classification LV diastolic failure, clinically resolved 2. Persistent atrial fibrillation with RVR on A/C with DOAC's/Eliquis, improved rate response 3. CAD with evidence of coronary artery calcification on CT scan of the chest angina pectoris 4. Pneumonia, clinically resolving 5. HTN 6. CKD with pre-renal azotemia, with acute exacerbation 7. History of melanoma 8. Hyponatremia 9. Hypokalemia, resolved PLAN: 1. Continue Eliquis 2. Continue Atenolol but as outlined if wheezing persists consider Bystolic as an alternative 3. Continue Cardizem CD 4. Continue Vasotec 5. Hold Lasix considering the above noted CKD with acute exacerbation 6. Bronchodilators, IV steroids, O2 and antibiotics as per the primary team Adela Burrell M.D.
[2019-11-10] MEDS: CARVEDILOL 25 MG TABLET (FP) PO SCH (06:52)
[2019-11-10] MEDS: LEVALBUTEROL HCL 0.31 MG/3 ML VIAL.NEB IH SCH ×4 (08:05→20:45)
[2019-11-10 08:44] LABS: BILIRUBIN,TOTAL 0.7 mg/dl (0.2-1); CALCIUM 9.2 mg/dl (8.5-10); CREATININE 1.1 mg/dl (0.55-1.3); POTASSIUM 4.3 mmol/L (3.5-5.1); TOT PROT 5.2 g/dl (6.4-8.2)
[2019-11-10] MEDS ORDERED: PT OWN MED DRAWER 7, Y5N ONE ×2 (08:52→20:40)
[2019-11-10] MEDS: APIXABAN 5 MG TABLET PO SCH ×2 (09:56→21:21)
[2019-11-10] MEDS: ENALAPRIL MALEATE 10 MG TABLET (FP) PO SCH ×2 (09:56→21:21)
[2019-11-10] MEDS: LIDOCAINE 5% TOPICAL PATCH TP SCH (09:57)
[2019-11-10] MEDS: MAGNESIUM OXIDE 400 MG TABLET (FP) PO SCH (09:57)
[2019-11-10] MEDS ORDERED: NEBIVOLOL 10 MG TABLET (FP) PO SCH (10:00)
[2019-11-10] MEDS: NEBIVOLOL 10 MG TABLET (FP) PO SCH (10:02)
[2019-11-10] MEDS: CEFTRIAXONE 1 G/50 ML PREMIX 50 ML IVPB SCH (10:02)
[2019-11-10] MEDS: POTASSIUM CHLORIDE TABS 20 MEQ TABLET.ER (FP) PO SCH (10:03)
[2019-11-10] MEDS: DULoxetine HCL 30 MG CAPSULE.DR PO SCH (10:03)
--- NOTE | 2019-11-10 15:06 | PN ---
Progress Note (short form) - Note Progress Note: More awake and alert today. Took a 2 hour nap. Reports breathing feels better. Denies CP or SOB. Some congested cough. Intake & Output 11/07/19 11/08/19 11/09/19 11/10/19 23:59 23:59 23:59 23:59 Intake Total 700 1620 350 Balance 700 1620 350 Weight 155 lb 0.4 oz 156 lb 148 lb 0.011 oz 153 lb 1 oz Last Vital Signs Temp Pulse Resp BP Pulse Ox 97.3 F L 108 H 17 99/63 96 11/10/19 13:56 11/10/19 13:56 11/10/19 13:56 11/10/19 13:56 11/10/19 13:56 Active Medications Acetaminophen (Tylenol -) 1,000 mg PO Q6H PRN PRN Reason: PAIN LEVEL 6-10 Apixaban (Eliquis -) 5 mg PO BID [facility] Last Admin: 11/10/19 09:56 Dose: 5 mg Diltiazem HCl (Cardizem Cd -) 240 mg PO DAILY [facility] Last Admin: 11/10/19 09:56 Dose: 240 mg Duloxetine HCl (Cymbalta -) 60 mg PO DAILY [facility] Last Admin: 11/10/19 10:03 Dose: 60 mg Enalapril Maleate (Vasotec -) 20 mg PO BID [facility] Last Admin: 11/10/19 09:56 Dose: 20 mg Ceftriaxone Sodium (Ceftriaxone 1 Gm-D5w Bag) 50 mls @ 100 mls/hr IVPB DAILY [facility] Last Admin: 11/10/19 10:02 Dose: 100 mls/hr Azithromycin (Zithromax 500mg Ivpb (Pre-Docked)) 500 mg in 250 mls @ 250 mls/ hr IVPB HS [facility] Last Admin: 11/09/19 22:25 Dose: 250 mls/hr Levalbuterol HCl (Xopenex) 0.31 mg IH RQID [facility] Last Admin: 11/10/19 12:05 Dose: 0.31 mg Lidocaine (Lidoderm Patch -) 2 patch TP DAILY [facility] Last Admin: 11/10/19 09:57 Dose: 2 patch Magnesium Oxide (Mag-Ox -) 400 mg PO DAILY [facility] Last Admin: 11/10/19 09:57 Dose: 400 mg Methylprednisolone Sodium Succinate (Solu-Medrol -) 30 mg IVPUSH Q8H-IV [facility] Last Admin: 11/10/19 09:58 Dose: 30 mg Metoprolol Tartrate (Lopressor Injection -) 5 mg IVPUSH Q4H PRN PRN Reason: HYPERTENSION Last Admin: 11/07/19 08:27 Dose: 5 mg Miscellaneous (Lidoderm Patch Removal) 1 each MC DAILY@2200 [facility] Last Admin: 11/09/19 22:25 Dose: 1 each Nebivolol (Bystolic -) 20 mg PO DAILY [facility] Last Admin: 11/10/19 10:02 Dose: 20 mg Potassium Chloride (K-Dur -) 40 meq PO DAILY [facility] Last Admin: 11/10/19 10:03 Dose: 40 meq Gen: Awake and alert, NAD Neck: Supple Negative JVD No Bruit Respiratory: Scattered bilateral rhonchi, diminished breath sounds at the bases Cardiovascular: S1 S2 Irregularly Irregular Gastrointestinal: Soft Benign Normal Bowel Sounds Ext: Negative Edema Laboratory Results - last 24 hr 11/10/19 06:00 Sodium 136 Potassium 4.3 Chloride 95 L Carbon Dioxide 30 Anion Gap 11 BUN 67.0 H Creatinine 1.1 Est GFR (CKD-EPI)AfAm 51.91 Est GFR (CKD-EPI)NonAf 44.79 Random Glucose 143 H Calcium 9.2 Total Bilirubin 0.7 AST 36 ALT 45 Alkaline Phosphatase 36 L Total Protein 5.2 L Albumin [address] CHEST: FLUID IN FISSURE LEFT UPPER LOBE /WITH B/L EFFUSIONS/CARDIOMEGALY Problem List - Problems (1) Atrial fibrillation Code(s): I48.91 - UNSPECIFIED ATRIAL FIBRILLATION (2) CHF (congestive heart failure) Code(s): I50.9 - HEART FAILURE, UNSPECIFIED Qualifiers: Heart failure type: diastolic Heart failure chronicity: acute on chronic Qualified Code(s): I50.33 - Acute on chronic diastolic (congestive) heart failure (3) Shortness of breath Code(s): R06.02 - SHORTNESS OF BREATH (4) DVT prophylaxis Code(s): [id number] - (5) Essential hypertension Code(s): I10 - ESSENTIAL (PRIMARY) HYPERTENSION Can Likely DC IV Medrol in the AM Supplemental O2 as needed Aspiration precautions Eliquis BD [place] ABX Dr Felix
[2019-11-10] MEDS: AZITHROMYCIN IVPB 500 MG/250 ML BAG IVPB SCH (21:21)
[2019-11-10] MEDS: LIDOCAINE PATCH REMOVAL MC SCH (21:22)
[2019-11-11] MEDS: ACETAMINOPHEN 500 MG TABLET (FP) PO PRN ×2 (00:52→13:21)
[2019-11-11] MEDS: methylPREDNISolone NA SUCC 40 MG/1 ML VIAL IVPUSH SCH ×3 (01:19→17:20)
--- NOTE | 2019-11-11 06:25 | PN ---
Progress Note (short form) - Note Progress Note: Chief Complaint: Events noted, notes reviewed, denies any dyspnea, wheeze resolved, denies any orthopnea or PND, peripheral edema improved, denies any chest discomfort History of Present Illness: Seen and examined on telemetry. Events noted, notes reviewed, denies any dyspnea , wheeze resolved, denies any orthopnea or PND, peripheral edema improved, denies any chest discomfort Medications: Current Medications Acetaminophen (Tylenol -) 1,000 mg PO Q6H PRN PRN Reason: PAIN LEVEL 6-10 Last Admin: 11/11/19 00:52 Dose: 1,000 mg Apixaban (Eliquis -) 5 mg PO BID [facility] Last Admin: 11/10/19 21:21 Dose: 5 mg Diltiazem HCl (Cardizem Cd -) 240 mg PO DAILY [facility] Last Admin: 11/10/19 09:56 Dose: 240 mg Duloxetine HCl (Cymbalta -) 60 mg PO DAILY [facility] Last Admin: 11/10/19 10:03 Dose: 60 mg Enalapril Maleate (Vasotec -) 20 mg PO BID [facility] Last Admin: 11/10/19 21:21 Dose: 20 mg Ceftriaxone Sodium (Ceftriaxone 1 Gm-D5w Bag) 50 mls @ 100 mls/hr IVPB DAILY [facility] Last Admin: 11/10/19 10:02 Dose: 100 mls/hr Azithromycin (Zithromax 500mg Ivpb (Pre-Docked)) 500 mg in 250 mls @ 250 mls/ hr IVPB HS [facility] Last Admin: 11/10/19 21:21 Dose: 250 mls/hr Levalbuterol HCl (Xopenex) 0.31 mg IH RQID [facility] Last Admin: 11/10/19 20:45 Dose: 0.31 mg Lidocaine (Lidoderm Patch -) 2 patch TP DAILY [facility] Last Admin: 11/10/19 09:57 Dose: 2 patch Magnesium Oxide (Mag-Ox -) 400 mg PO DAILY [facility] Last Admin: 11/10/19 09:57 Dose: 400 mg Methylprednisolone Sodium Succinate (Solu-Medrol -) 30 mg IVPUSH Q8H-IV [facility] Last Admin: 11/11/19 01:19 Dose: 30 mg Metoprolol Tartrate (Lopressor Injection -) 5 mg IVPUSH Q4H PRN PRN Reason: HYPERTENSION Last Admin: 11/07/19 08:27 Dose: 5 mg Miscellaneous (Lidoderm Patch Removal) 1 each MC DAILY@2200 [facility] Last Admin: 11/10/19 21:22 Dose: 1 each Nebivolol (Bystolic -) 20 mg PO DAILY [facility] Last Admin: 11/10/19 10:02 Dose: 20 mg Potassium Chloride (K-Dur -) 40 meq PO DAILY [facility] Last Admin: 11/10/19 10:03 Dose: 40 meq Review of Systems - Review of Systems Constitutional: denies: Chills, Fever Cardiovascular: As noted above Respiratory: reports: Cough but denies Sputum Production Gastrointestinal: denies: Nausea, Vomiting, Diarrhea, Constipation, Abdominal Pain Neurological: denies: Headaches Vital Signs: Last Vital Signs Temp Pulse Resp BP Pulse Ox 97.2 F L 110 H 18 111/74 99 11/11/19 01:55 11/11/19 01:55 11/11/19 01:55 11/11/19 01:55 11/11/19 01:55 Intake & Output 11/08/19 11/09/19 11/10/19 11/11/19 23:59 23:59 23:59 23:59 Intake Total 1620 350 610 Balance 1620 350 610 Weight 156 lb 148 lb 0.011 oz 153 lb 1 oz Neck: Supple Negative JVD No Bruit Respiratory: Diminished breath sounds at the bases bilaterally Minimal Scattered Rhonchi Cardiovascular: S1 S2 Irregularly Irregular Gastrointestinal: Soft Benign Normal Bowel Sounds Ext: Negative Edema Labs: CBC, BMP 11/08/19 07:07 11/10/19 06:00 Hepatic Panel Total Bilirubin 0.7 mg/dl (0.2-1) 11/10/19 06:00 AST 36 U/L (15-37) 11/10/19 06:00 ALT 45 U/L (13-61) 11/10/19 06:00 Alkaline Phosphatase 36 U/L (45-117) L 11/10/19 06:00 Albumin 3.0 g/dl (3.4-5.0) L 11/10/19 06:00 Assessment/Plan ASSESSMENT: 1. Acute on chronic class I-II NYHA classification LV diastolic failure, clinically resolved 2. Persistent atrial fibrillation with RVR on A/C with DOAC's/Eliquis, improved rate response 3. CAD with evidence of coronary artery calcification on CT scan of the chest angina pectoris 4. Pneumonia, clinically resolving 5. HTN 6. CKD with pre-renal azotemia, with acute exacerbation 7. History of melanoma 8. Hyponatremia, resolved 9. Hypokalemia, resolved PLAN: 1. Continue Eliquis 2. Continue Bystolic initiated as an alternative to Atenolol related to persistent wheeze/broncho-spasm 3. Continue Cardizem CD 4. Continue Vasotec 5. Continue to hold Lasix considering the above noted CKD with acute exacerbation, resume once renal function at baseline 6. Bronchodilators, IV steroids, O2 and antibiotics as per the primary team Adela Burrell M.D.
[2019-11-11] MEDS ORDERED: PT OWN MED DRAWER 7, Y5N ONE ×4 (07:45→19:10)
[2019-11-11] MEDS: LEVALBUTEROL HCL 0.31 MG/3 ML VIAL.NEB IH SCH ×4 (08:43→19:19)
[2019-11-11 09:55] LABS: ALBUMIN 3.1 g/dl (3.4-5.0); CALCIUM 9.5 mg/dl (8.5-10); CREATININE 1.1 mg/dl (0.55-1.3); POTASSIUM 4.4 mmol/L (3.5-5.1); TOT PROT 5.4 g/dl (6.4-8.2)
[2019-11-11] MEDS: LIDOCAINE 5% TOPICAL PATCH TP SCH (10:21)
--- NOTE | 2019-11-11 10:44 | PN ---
Progress Note (short form) - Note Progress Note: PULMONARY VSS/AFEBRILE FAMILY VISITING SPO2 93% R/A NURSE REPORTS NO DESATURATION ON AMBULATION PALE/ANICTERIC SCATTERED MINIMAL RHONCHI S1S2 IRREG BS+ NO EDEMA LABS/MEDS/NOTES/IMAGES REVIEWED RESOLVED A/E COPD MULTIPLE CO-MORBIDITIES APPEAR STABLE AT PRESENT CHANGE STEROIDS TO ORAL AND TAPER AN OUTPATIENT CONTINUE BRONCHODILATORS O2 PRN NO OBJECTION TO DISCHARGE PLANNING WILL SIGN OFF PLEASE CALL PRN THANK YOU FOR THE CONSULT Emily CHAMBERLAIN MD Problem List - Problems (1) Atrial fibrillation Code(s): I48.91 - UNSPECIFIED ATRIAL FIBRILLATION Qualifiers: Atrial fibrillation type: longstanding persistent Qualified Code(s): I48.11 - Longstanding persistent atrial fibrillation (2) CHF (congestive heart failure) Code(s): I50.9 - HEART FAILURE, UNSPECIFIED Qualifiers: Heart failure type: diastolic Heart failure chronicity: acute on chronic Qualified Code(s): I50.33 - Acute on chronic diastolic (congestive) heart failure (3) Shortness of breath Code(s): R06.02 - SHORTNESS OF BREATH (4) DVT prophylaxis Code(s): [id number] - (5) Essential hypertension Code(s): I10 - ESSENTIAL (PRIMARY) HYPERTENSION
[2019-11-11] MEDS: NEBIVOLOL 10 MG TABLET (FP) PO SCH (10:57)
[2019-11-11] MEDS: CEFTRIAXONE 1 G/50 ML PREMIX 50 ML IVPB SCH (10:57)
[2019-11-11] MEDS: POTASSIUM CHLORIDE TABS 20 MEQ TABLET.ER (FP) PO SCH (10:58)
[2019-11-11] MEDS: DULoxetine HCL 30 MG CAPSULE.DR PO SCH (10:58)
[2019-11-11] MEDS: APIXABAN 5 MG TABLET PO SCH (10:58)
[2019-11-11] MEDS: ENALAPRIL MALEATE 10 MG TABLET (FP) PO SCH ×2 (10:59→21:24)
[2019-11-11] MEDS: MAGNESIUM OXIDE 400 MG TABLET (FP) PO SCH (10:59)
[2019-11-11] MEDS ORDERED: FUROSEMIDE 40 MG/4 ML INJECTABLE VIAL IVPUSH ONE (17:13)
--- NOTE | 2019-11-11 17:37 | PN ---
Progress Note, Physician Chief Complaint: Patient feels better and has a HR between 100 and 120 b/min, there is less cough Earlier during the day after having a hard bowel movement, she had blood in stool. The patient is able to ambulate with assistance. History of Present Illness: 89 yo female admitted for rapid Afib, and congestive heart failure, continues to experience shortness of breath and wheezing. Today she experienced rectal blood with BRB per rectum, the amount lost was of approximately 30cc of blood. She stated that she had some abdominal discomfort at that time. - Current Medication List Current Medications: Active Medications Acetaminophen (Tylenol -) 1,000 mg PO Q6H PRN PRN Reason: PAIN LEVEL 6-10 Last Admin: 11/11/19 13:21 Dose: 1,000 mg Apixaban (Eliquis -) 5 mg PO BID [facility] Last Admin: 11/11/19 10:58 Dose: 5 mg Diltiazem HCl (Cardizem Cd -) 300 mg PO DAILY [facility] Duloxetine HCl (Cymbalta -) 60 mg PO DAILY [facility] Last Admin: 11/11/19 10:58 Dose: 60 mg Enalapril Maleate (Vasotec -) 20 mg PO BID [facility] Last Admin: 11/11/19 10:59 Dose: 20 mg Ceftriaxone Sodium (Ceftriaxone 1 Gm-D5w Bag) 50 mls @ 100 mls/hr IVPB DAILY [facility] Last Admin: 11/11/19 10:57 Dose: 100 mls/hr Azithromycin (Zithromax 500mg Ivpb (Pre-Docked)) 500 mg in 250 mls @ 250 mls/ hr IVPB HS [facility] Last Admin: 11/10/19 21:21 Dose: 250 mls/hr Levalbuterol HCl (Xopenex) 0.31 mg IH RQID [facility] Last Admin: 11/11/19 12:22 Dose: 0.31 mg Lidocaine (Lidoderm Patch -) 2 patch TP DAILY [facility] Last Admin: 11/11/19 10:21 Dose: 2 patch Magnesium Oxide (Mag-Ox -) 400 mg PO DAILY [facility] Last Admin: 11/11/19 10:59 Dose: 400 mg Methylprednisolone Sodium Succinate (Solu-Medrol -) 30 mg IVPUSH Q8H-IV [facility] Last Admin: 11/11/19 17:20 Dose: 30 mg Metoprolol Tartrate (Lopressor Injection -) 5 mg IVPUSH Q4H PRN PRN Reason: HYPERTENSION Last Admin: 11/07/19 08:27 Dose: 5 mg Miscellaneous (Lidoderm Patch Removal) 1 each MC DAILY@2200 [facility] Last Admin: 11/10/19 21:22 Dose: 1 each Nebivolol (Bystolic -) 20 mg PO DAILY [facility] Last Admin: 11/11/19 10:57 Dose: 20 mg Potassium Chloride (K-Dur -) 40 meq PO DAILY [facility] Last Admin: 11/11/19 10:58 Dose: 40 meq - Objective Vital Signs: Vital Signs Temperature 97.7 F 11/11/19 14:00 Pulse Rate 98 H 11/11/19 14:00 Respiratory Rate 20 11/11/19 14:00 Blood Pressure 121/60 11/11/19 14:00 O2 Sat by Pulse Oximetry (%) 96 11/11/19 09:00 Constitutional: Yes: No Distress, Calm HENT: Yes: Atraumatic, Normocephalic Neck: Yes: Trachea Midline Cardiovascular: Yes: Tachycardia Respiratory: Yes: Regular, Cough, On Nasal O2, Rales Genitourinary: Yes: Incontinence Extremities: No: Calf Tenderness Edema: No Peripheral Pulses WNL: Yes Neurological: Yes: Alert, Oriented Psychiatric: Yes: Alert, Oriented Labs: CBC, BMP 11/08/19 07:07 11/11/19 09:10 Problem List - Problems (1) CHF (congestive heart failure) Assessment/Plan: Lasix to 40 mg iv once Code(s): I50.9 - HEART FAILURE, UNSPECIFIED Qualifiers: Heart failure type: diastolic Heart failure chronicity: acute on chronic Qualified Code(s): I50.33 - Acute on chronic diastolic (congestive) heart failure (2) Atrial fibrillation Assessment/Plan: continue Bystolic, Xopenex nebulizer increase Cardizem to 300 mg po daily Eliquis 5 mg bid Code(s): I48.91 - UNSPECIFIED ATRIAL FIBRILLATION Qualifiers: Atrial fibrillation type: longstanding persistent Qualified Code(s): I48.11 - Longstanding persistent atrial fibrillation (3) Essential hypertension Assessment/Plan: controlled Code(s): I10 - ESSENTIAL (PRIMARY) HYPERTENSION (4) Melanoma Assessment/Plan: s/p excision Ct scan of the chest does not show malignancy Code(s): C43.9 - MALIGNANT MELANOMA OF SKIN, UNSPECIFIED (5) Pneumonia Assessment/Plan: Ceftriaxone and Zithromax IV daily wheezing better since Solumedrol dose was increased to 30 mg q8hrs continue Xopenex Code(s): J18.9 - PNEUMONIA, UNSPECIFIED ORGANISM (6) Rectal bleed Assessment/Plan: it is not the first episode the patient had, recently she had in total 3 episodes of fresh blood per rectum and while on Eliquis cbc in am Code(s): K62.5 - HEMORRHAGE OF ANUS AND RECTUM
[2019-11-11] MEDS ORDERED: APIXABAN 5 MG TABLET PO SCH (18:56)
--- NOTE | 2019-11-11 20:50 | PN ---
Progress Note, Physician Chief Complaint: note for 11/10/19 Patient continues to have wheezing and rales HR is above 100 - Current Medication List Current Medications: Active Medications Acetaminophen (Tylenol -) 1,000 mg PO Q6H PRN PRN Reason: PAIN LEVEL 6-10 Last Admin: 11/11/19 13:21 Dose: 1,000 mg Apixaban (Eliquis -) 5 mg PO BID [facility] Diltiazem HCl (Cardizem Cd -) 300 mg PO DAILY [facility] Duloxetine HCl (Cymbalta -) 60 mg PO DAILY [facility] Last Admin: 11/11/19 10:58 Dose: 60 mg Enalapril Maleate (Vasotec -) 20 mg PO BID [facility] Last Admin: 11/11/19 10:59 Dose: 20 mg Ceftriaxone Sodium (Ceftriaxone 1 Gm-D5w Bag) 50 mls @ 100 mls/hr IVPB DAILY [facility] Last Admin: 11/11/19 10:57 Dose: 100 mls/hr Azithromycin (Zithromax 500mg Ivpb (Pre-Docked)) 500 mg in 250 mls @ 250 mls/ hr IVPB HS [facility] Last Admin: 11/10/19 21:21 Dose: 250 mls/hr Levalbuterol HCl (Xopenex) 0.31 mg IH RQID [facility] Last Admin: 11/11/19 19:19 Dose: 0.31 mg Lidocaine (Lidoderm Patch -) 2 patch TP DAILY [facility] Last Admin: 11/11/19 10:21 Dose: 2 patch Magnesium Oxide (Mag-Ox -) 400 mg PO DAILY [facility] Last Admin: 11/11/19 10:59 Dose: 400 mg Methylprednisolone Sodium Succinate (Solu-Medrol -) 30 mg IVPUSH Q8H-IV [facility] Last Admin: 11/11/19 17:20 Dose: 30 mg Metoprolol Tartrate (Lopressor Injection -) 5 mg IVPUSH Q4H PRN PRN Reason: HYPERTENSION Last Admin: 11/07/19 08:27 Dose: 5 mg Miscellaneous (Lidoderm Patch Removal) 1 each MC DAILY@2200 [facility] Last Admin: 11/10/19 21:22 Dose: 1 each Nebivolol (Bystolic -) 20 mg PO DAILY [facility] Last Admin: 11/11/19 10:57 Dose: 20 mg Potassium Chloride (K-Dur -) 40 meq PO DAILY [facility] Last Admin: 11/11/19 10:58 Dose: 40 meq - Objective Vital Signs: Vital Signs Temperature 97.9 F 11/11/19 18:00 Pulse Rate 102 H 11/11/19 18:00 Respiratory Rate 20 11/11/19 18:00 Blood Pressure 128/59 L 11/11/19 18:00 O2 Sat by Pulse Oximetry (%) 96 11/11/19 09:00 Constitutional: Yes: No Distress, Calm Eyes: Yes: Conjunctiva Clear, EOM Intact HENT: Yes: Atraumatic, Normocephalic Neck: Yes: Supple, Trachea Midline Cardiovascular: Yes: Tachycardia, Pulse Irregular Respiratory: Yes: Regular, CTA Bilaterally Gastrointestinal: Yes: Normal Bowel Sounds, Soft ...Rectal Exam: Yes: Deferred Genitourinary: Yes: WNL Breast(s): Yes: WNL Musculoskeletal: Yes: WNL Extremities: No: Calf Tenderness Edema: No Integumentary: Yes: WNL Neurological: Yes: Alert, Oriented Psychiatric: Yes: Alert, Oriented Labs: CBC, BMP 11/08/19 07:07 11/11/19 09:10 Problem List - Problems (1) CHF (congestive heart failure) Assessment/Plan: discontinued Lasix Code(s): I50.9 - HEART FAILURE, UNSPECIFIED Qualifiers: Heart failure type: diastolic Heart failure chronicity: acute on chronic Qualified Code(s): I50.33 - Acute on chronic diastolic (congestive) heart failure (2) Atrial fibrillation Assessment/Plan: continue Bystolic, Xopenex nebulizer increase Cardizem 240 mg po daily Eliquis 5 mg bid Code(s): I48.91 - UNSPECIFIED ATRIAL FIBRILLATION Qualifiers: Atrial fibrillation type: longstanding persistent Qualified Code(s): I48.11 - Longstanding persistent atrial fibrillation (3) Essential hypertension Assessment/Plan: controlled Code(s): I10 - ESSENTIAL (PRIMARY) HYPERTENSION (4) Melanoma Assessment/Plan: s/p excision Ct scan of the chest does not show malignancy Code(s): C43.9 - MALIGNANT MELANOMA OF SKIN, UNSPECIFIED (5) Pneumonia Assessment/Plan: Ceftriaxone and Zithromax IV daily wheezing better since Solumedrol dose was increased to 30 mg q8hrs continue Xopenex Code(s): J18.9 - PNEUMONIA, UNSPECIFIED ORGANISM
[2019-11-11] MEDS: AZITHROMYCIN IVPB 500 MG/250 ML BAG IVPB SCH (21:24)
[2019-11-11] MEDS: LIDOCAINE PATCH REMOVAL MC SCH (21:25)
[2019-11-12] MEDS: methylPREDNISolone NA SUCC 40 MG/1 ML VIAL IVPUSH SCH ×3 (01:17→17:43)
[2019-11-12 07:49] LABS: HEMATOCRIT 46.3 % (32.4-45.2); HEMOGLOBIN 14.8 GM/dl (10.7-15.3); MCH 26.4 pg (25.7-33.7); MCHC 31.9 g/dl (32.0-36.0); MEAN CELL VOLUME 82.8 fl (80-96); MEAN PLT VOLUME 9.3 fl (7.5-11.1); PLATELET COUNT 181 K/MM3 (134-434); RBC 5.59 M/mm3 (3.60-5.2); RDW 14.4 % (11.6-15.6); WHITE BLOOD COUNT 12.8 K/mm3 (4.0-10.8)
[2019-11-12 07:55] LABS: ALBUMIN 3.2 g/dl (3.4-5.0); BILIRUBIN,TOTAL 0.9 mg/dl (0.2-1); CALCIUM 9.2 mg/dl (8.5-10); CREATININE 1.2 mg/dl (0.55-1.3); POTASSIUM 4.3 mmol/L (3.5-5.1); TOT PROT 5.3 g/dl (6.4-8.2)
[2019-11-12 08:36] LABS: PLATELET ESTIMATE ADEQUATE
[2019-11-12] MEDS ORDERED: PT OWN MED DRAWER 7, Y5N ONE ×3 (08:44→20:46)
[2019-11-12] MEDS: LEVALBUTEROL HCL 0.31 MG/3 ML VIAL.NEB IH SCH ×2 (08:47→12:38)
--- NOTE | 2019-11-12 10:35 | PN ---
Progress Note, Physician Chief Complaint: Not in distress Tolerating therapy History of Present Illness: Patient was seen and examined. Awake and alert. Chart was reviewed Denies chest pain or palpitations. AF with RVR Cough intermittently - Current Medication List Current Medications: Active Medications Acetaminophen (Tylenol -) 1,000 mg PO Q6H PRN PRN Reason: PAIN LEVEL 6-10 Last Admin: 11/11/19 13:21 Dose: 1,000 mg Apixaban (Eliquis -) 5 mg PO BID [facility] Diltiazem HCl (Cardizem Cd -) 300 mg PO DAILY [facility] Duloxetine HCl (Cymbalta -) 60 mg PO DAILY [facility] Last Admin: 11/11/19 10:58 Dose: 60 mg Enalapril Maleate (Vasotec -) 20 mg PO BID [facility] Last Admin: 11/11/19 21:24 Dose: 20 mg Ceftriaxone Sodium (Ceftriaxone 1 Gm-D5w Bag) 50 mls @ 100 mls/hr IVPB DAILY [facility] Last Admin: 11/11/19 10:57 Dose: 100 mls/hr Azithromycin (Zithromax 500mg Ivpb (Pre-Docked)) 500 mg in 250 mls @ 250 mls/ hr IVPB HS [facility] Last Admin: 11/11/19 21:24 Dose: 250 mls/hr Levalbuterol HCl (Xopenex) 0.31 mg IH RQID [facility] Last Admin: 11/12/19 08:47 Dose: 0.31 mg Lidocaine (Lidoderm Patch -) 2 patch TP DAILY [facility] Last Admin: 11/11/19 10:21 Dose: 2 patch Magnesium Oxide (Mag-Ox -) 400 mg PO DAILY [facility] Last Admin: 11/11/19 10:59 Dose: 400 mg Methylprednisolone Sodium Succinate (Solu-Medrol -) 30 mg IVPUSH Q8H-IV [facility] Last Admin: 11/12/19 01:17 Dose: 30 mg Metoprolol Tartrate (Lopressor Injection -) 5 mg IVPUSH Q4H PRN PRN Reason: HYPERTENSION Last Admin: 11/07/19 08:27 Dose: 5 mg Miscellaneous (Lidoderm Patch Removal) 1 each MC DAILY@2200 [facility] Last Admin: 11/11/19 21:25 Dose: 1 each Nebivolol (Bystolic -) 20 mg PO DAILY [facility] Last Admin: 11/11/19 10:57 Dose: 20 mg Potassium Chloride (K-Dur -) 40 meq PO DAILY [facility] Last Admin: 11/11/19 10:58 Dose: 40 meq - Objective Vital Signs: Vital Signs Temperature 98 F 11/12/19 09:30 Pulse Rate 112 H 11/12/19 09:30 Respiratory Rate 20 11/12/19 09:30 Blood Pressure 113/65 11/12/19 09:30 O2 Sat by Pulse Oximetry (%) 93 L 11/12/19 09:30 Eyes: Yes: PERRL HENT: Yes: Atraumatic Neck: Yes: Supple Cardiovascular: Yes: Tachycardia, Pulse Irregular, S1, S2 Respiratory: Yes: Diminished Gastrointestinal: Yes: Normal Bowel Sounds, Soft. No: Tenderness Edema: No Additional Findings/Remarks: - Review of Systems Constitutional: denies: Chills, Fever Cardiovascular: reports: Palpitations, Shortness of Breath. denies: Chest Pain Respiratory: reports: Cough, SOB. denies: Hemoptysis, Orthopnea, PND Gastrointestinal: denies: Abdominal Pain, Constipation, Diarrhea, Melena, Nausea , Rectal Bleeding, Vomiting Genitourinary: denies: Dysuria, Hematuria Musculoskeletal: reports: Joint Pain. denies: Back Pain Neurological: denies: Dizziness, Headache, Seizure, Syncope Labs: CBC, BMP 11/12/19 06:47 11/12/19 06:47 Problem List - Problems (1) Atrial fibrillation Code(s): I48.91 - UNSPECIFIED ATRIAL FIBRILLATION Qualifiers: Atrial fibrillation type: longstanding persistent Qualified Code(s): I48.11 - Longstanding persistent atrial fibrillation (2) CHF (congestive heart failure) Code(s): I50.9 - HEART FAILURE, UNSPECIFIED Qualifiers: Heart failure type: diastolic Heart failure chronicity: acute on chronic Qualified Code(s): I50.33 - Acute on chronic diastolic (congestive) heart failure (3) Melanoma Code(s): C43.9 - MALIGNANT MELANOMA OF SKIN, UNSPECIFIED (4) Essential hypertension Code(s): I10 - ESSENTIAL (PRIMARY) HYPERTENSION (5) Aortic valve regurgitation Code(s): I35.1 - NONRHEUMATIC AORTIC (VALVE) INSUFFICIENCY Qualifiers: Cardiac valve disease etiology: nonrheumatic Qualified Code(s): I35.1 - Nonrheumatic aortic (valve) insufficiency (6) Tricuspid valve regurgitation Code(s): I07.1 - RHEUMATIC TRICUSPID INSUFFICIENCY Qualifiers: Cardiac valve disease etiology: nonrheumatic Qualified Code(s): I36.1 - Nonrheumatic tricuspid (valve) insufficiency (7) Shortness of breath Code(s): R06.02 - SHORTNESS OF BREATH Assessment/Plan 1. Acute on chronic class I-II NYHA classification LV diastolic failure 2. Persistent atrial fibrillation with RVR on A/C with DOAC/Eliquis 3. CAD with evidence of coronary artery calcification on CT scan of the chest angina pectoris 4. Pneumonia, clinically resolving 5. HTN 6. CKD with pre-renal azotemia, with acute exacerbation 7. History of melanoma 8. Hyponatremia, resolved 9. Hypokalemia, resolved PLAN: 1. Continue Eliquis 2. Continue Bystolic initiated as an alternative to Atenolol related to persistent wheeze/broncho-spasm 3. Continue Cardizem CD and Vasotec 4. Continue to hold Lasix considering the above noted CKD with acute exacerbation, resume once renal function at baseline 5. Bronchodilators, IV steroids, O2 and antibiotics Further plans are to follow Seng Enriquez MD
[2019-11-12] MEDS: NEBIVOLOL 10 MG TABLET (FP) PO SCH (10:55)
[2019-11-12] MEDS: DULoxetine HCL 30 MG CAPSULE.DR PO SCH (10:56)
[2019-11-12] MEDS: POTASSIUM CHLORIDE TABS 20 MEQ TABLET.ER (FP) PO SCH (10:56)
[2019-11-12] MEDS: CEFTRIAXONE 1 G/50 ML PREMIX 50 ML IVPB SCH (10:56)
[2019-11-12] MEDS: LIDOCAINE 5% TOPICAL PATCH TP SCH (10:57)
[2019-11-12] MEDS: MAGNESIUM OXIDE 400 MG TABLET (FP) PO SCH (10:58)
[2019-11-12] MEDS: ENALAPRIL MALEATE 10 MG TABLET (FP) PO SCH ×2 (10:59→21:52)
[2019-11-12] MEDS: DILTIAZEM CD 120 MG, DILTIAZEM CD 180 MG PO SCH (10:59)
--- NOTE | 2019-11-12 12:42 | PN ---
Progress Note (short form) - Note Progress Note: Patient seen and chart/labs reviewed with consult dictated. Discussion had with patient and family member regarding the recent LGI bleeding and option of colonoscopy. Currently off Eliquis and on clear liquid diet; no bleeding today and Hct stable. Still in CHF and not an optimal candidate for colonoscopy/sedation. Suggest: restart on low sodium diet monitor CBC and stool for heme defer colonoscopy/sigmoidoscopy unless rebleeds or Cardiology needs the study prior to restarting a/c.
--- NOTE | 2019-11-12 13:41 | CONS ---
DATE OF CONSULTATION: 11/12/2019 HISTORY OF PRESENT ILLNESS: Asked by Dr. Landeros to evaluate this 89-year-old female with rectal bleeding. The patient is an 89-year-old female with atrial fibrillation and congestive heart failure. She apparently has been having some small amounts of painless, bright red blood per rectum over the past several weeks or longer, but in view of her cardiac issues, has not had a workup to date. She was admitted to the hospital with congestive heart failure and rapid atrial fibrillation. Her hematocrit was 46.5, with a hemoglobin of 14.9 and normal red cell indices. The patient has been having treatment for her congestive heart failure, but yesterday, apparently, passed some bright red blood per rectum without any associated pain. She denies any nausea, vomiting, or cramps. She has not had a colonoscopy to date. Her most recent hemoglobin is 14.8, hematocrit 46.3, with normal red cell indices, platelet count of 181,000, and normal electrolytes, with the exception of a BUN of 64 and a creatinine of 1.2. The patient denies any history of colitis. She has no known family history of colon cancer or polyps. She also denies any prior history of hemorrhoids. Today, the patient is off of Eliquis and has had no further bleeding. She did have a brown bowel movement earlier. PHYSICAL EXAMINATION: General: On exam, she is a well-developed elderly female sitting in a chair with mild shortness of breath. Lungs: She has bilateral rales [address] Cardiac: Exam has an irregularly irregular heart rate. Abdomen: Soft, flat, and nontender. Rectal: Exam is deferred in view of the patient being in a chair in mild shortness of breath. ASSESSMENT AND RECOMMENDATIONS: Suspect patient has had some intermittent rectal bleeding either from hemorrhoids (?) internal, or less likely, a primary colon lesion such as colitis, polyp, neoplasm. Less likely would be an ectasia. At the present time, patient does not appear to be a suitable candidate for elective colonoscopy. She does have congestive heart failure and rapid atrial fibrillation and is no longer having active bleeding, with a stable hematocrit. However, the decision with regards to restarting her anticoagulation will be made by Cardiology, as well as decision of whether the patient should have a lower gastrointestinal endoscopy prior to restarting her blood thinner. However, she will need to be in better cardiac/respiratory status prior to the study, unless the recommendation is for emergent anticoagulation. At the present time, however, we will follow clinically. Decision regarding anticoagulation per Cardiology. Please call if I can be of any assistance. SADI HARTMANN M.D. [id number]
[2019-11-12] MEDS ORDERED: LEVALBUTEROL HCL 0.63 MG/3 ML VIAL.NEB. IH SCH (19:15)
[2019-11-12] MEDS: LEVALBUTEROL HCL 0.63 MG/3 ML VIAL.NEB. IH SCH (20:47)
[2019-11-12] MEDS: AZITHROMYCIN IVPB 500 MG/250 ML BAG IVPB SCH (21:52)
[2019-11-12] MEDS: APIXABAN 5 MG TABLET PO SCH (21:52)
[2019-11-12] MEDS: LIDOCAINE PATCH REMOVAL MC SCH (21:52)
[2019-11-13] MEDS ORDERED: PT OWN MED DRAWER 7, Y5N ONE ×3 (03:41→15:02)
[2019-11-13] MEDS: methylPREDNISolone NA SUCC 40 MG/1 ML VIAL IVPUSH SCH ×3 (03:43→18:21)
[2019-11-13] MEDS: METOPROLOL TARTRATE 5 MG/5 ML VIAL IVPUSH PRN ×2 (04:18→21:46)
[2019-11-13 07:43] LABS: HEMATOCRIT 48.3 % (32.4-45.2); HEMOGLOBIN 15.4 GM/dl (10.7-15.3); LYMPH % 5.4 % (8-40); MCH 26.6 pg (25.7-33.7); MEAN CELL VOLUME 83.2 fl (80-96); MEAN PLT VOLUME 9.6 fl (7.5-11.1); MONO % 3.6 % (3.8-10.2); PLATELET COUNT 182 K/MM3 (134-434); RBC 5.81 M/mm3 (3.60-5.2); WHITE BLOOD COUNT 13.4 K/mm3 (4.0-10.8)
[2019-11-13 07:49] LABS: ALBUMIN 3.2 g/dl (3.4-5.0); CALCIUM 9.5 mg/dl (8.5-10); CREATININE 1.1 mg/dl (0.55-1.3); POTASSIUM 4.5 mmol/L (3.5-5.1); TOT PROT 5.5 g/dl (6.4-8.2)
[2019-11-13] MEDS: LEVALBUTEROL HCL 0.63 MG/3 ML VIAL.NEB. IH SCH ×4 (08:10→20:02)
[2019-11-13] MEDS: FUROSEMIDE 40 MG/4 ML INJECTABLE VIAL IVPUSH SCH (09:00)
--- NOTE | 2019-11-13 09:41 | PN ---
Progress Note (short form) - Note Progress Note: Patient with mild SOB this am; sitting in chair using nebulizer. Ate breakfast and denies N/V/abdominal pain. No further rectal bleeding. Hct 46-48% - unchanged. Abdomen soft +BS nontender Back on Eliquis for Afib To defer further GI workup at this time; patient/family aware/in agreement. Please recall if I can be of assistance.
[2019-11-13] MEDS: NEBIVOLOL 10 MG TABLET (FP) PO SCH (10:53)
[2019-11-13] MEDS: DULoxetine HCL 30 MG CAPSULE.DR PO SCH (10:53)
[2019-11-13] MEDS: ENALAPRIL MALEATE 10 MG TABLET (FP) PO SCH ×2 (10:53→21:45)
[2019-11-13] MEDS: DILTIAZEM CD 120 MG, DILTIAZEM CD 180 MG PO SCH (10:54)
[2019-11-13] MEDS: APIXABAN 5 MG TABLET PO SCH ×2 (10:54→21:45)
[2019-11-13] MEDS: MAGNESIUM OXIDE 400 MG TABLET (FP) PO SCH (10:54)
[2019-11-13] MEDS: POTASSIUM CHLORIDE TABS 20 MEQ TABLET.ER (FP) PO SCH (10:55)
[2019-11-13] MEDS: LIDOCAINE 5% TOPICAL PATCH TP SCH (10:56)
[2019-11-13] MEDS ORDERED: FUROSEMIDE 40 MG/4 ML INJECTABLE VIAL IVPUSH ONE (17:48)
--- NOTE | 2019-11-13 20:04 | PN ---
Progress Note, Physician Chief Complaint: Patient is unchanged compared to last night, and despite rales and wheezing she is not uncomfortable.There was no more rectal bleeding. The appetite is good and bowel movements are normal. History of Present Illness: 89 yo female admitted for rapid Afib, and congestive heart failure, continues to experience shortness of breath and wheezing. Patient received IV diuresis which was administered only for a couple of days because the renal function deteriorated.I restarted the administration of LAsix this morning. - Current Medication List Current Medications: Active Medications Acetaminophen (Tylenol -) 1,000 mg PO Q6H PRN PRN Reason: PAIN LEVEL 6-10 Last Admin: 11/11/19 13:21 Dose: 1,000 mg Apixaban (Eliquis -) 5 mg PO BID [facility] Last Admin: 11/13/19 10:54 Dose: 5 mg Diltiazem HCl 120 mg/ (Diltiazem HCl 180 mg) 300 mg PO DAILY [facility] Last Admin: 11/13/19 10:54 Dose: 300 mg Duloxetine HCl (Cymbalta -) 60 mg PO DAILY [facility] Last Admin: 11/13/19 10:53 Dose: 60 mg Enalapril Maleate (Vasotec -) 20 mg PO BID [facility] Last Admin: 11/13/19 10:53 Dose: 20 mg Furosemide (Lasix Injection -) 40 mg IVPUSH DAILY [facility] Last Admin: 11/13/19 09:00 Dose: 40 mg Levalbuterol HCl (Xopenex) 0.63 mg IH RQID [facility] Last Admin: 11/13/19 16:15 Dose: 0.63 mg Lidocaine (Lidoderm Patch -) 2 patch TP DAILY [facility] Last Admin: 11/13/19 10:56 Dose: 2 patch Magnesium Oxide (Mag-Ox -) 400 mg PO DAILY [facility] Last Admin: 11/13/19 10:54 Dose: 400 mg Methylprednisolone Sodium Succinate (Solu-Medrol -) 30 mg IVPUSH Q8H-IV [facility] Last Admin: 11/13/19 18:21 Dose: 30 mg Metoprolol Tartrate (Lopressor Injection -) 5 mg IVPUSH Q4H PRN PRN Reason: HYPERTENSION Last Admin: 11/13/19 04:18 Dose: 5 mg Miscellaneous (Lidoderm Patch Removal) 1 each MC DAILY@2200 [facility] Last Admin: 11/12/19 21:52 Dose: 1 each Nebivolol (Bystolic -) 20 mg PO DAILY [facility] Last Admin: 11/13/19 10:53 Dose: 20 mg Potassium Chloride (K-Dur -) 40 meq PO DAILY [facility] Last Admin: 11/13/19 10:55 Dose: 40 meq - Objective Vital Signs: Vital Signs Temperature 97.6 F 11/13/19 18:00 Pulse Rate 89 11/13/19 18:00 Respiratory Rate 11/13/19 18:00 Blood Pressure 136/72 11/13/19 18:00 O2 Sat by Pulse Oximetry (%) 96 11/13/19 18:00 Constitutional: Yes: No Distress, Calm Eyes: Yes: Conjunctiva Clear, EOM Intact Neck: Yes: Supple, Trachea Midline Cardiovascular: Yes: Tachycardia, Pulse Irregular Respiratory: Yes: Regular, Rhonchi, SOB, Wheezes Gastrointestinal: No: Hepatomegaly, Splenomegaly Extremities: No: Calf Tenderness Edema: No Psychiatric: Yes: Alert, Oriented Labs: CBC, BMP 11/13/19 06:45 11/13/19 06:45 Problem List - Problems (1) CHF (congestive heart failure) Assessment/Plan: restarted Lasix 40 mg iv bid Code(s): I50.9 - HEART FAILURE, UNSPECIFIED Qualifiers: Heart failure type: diastolic Heart failure chronicity: acute on chronic Qualified Code(s): I50.33 - Acute on chronic diastolic (congestive) heart failure (2) Atrial fibrillation Assessment/Plan: continue Bystolic, Xopenex nebulizer increase Cardizem 240 mg po daily Eliquis 5 mg bid Code(s): I48.91 - UNSPECIFIED ATRIAL FIBRILLATION Qualifiers: Atrial fibrillation type: longstanding persistent Qualified Code(s): I48.11 - Longstanding persistent atrial fibrillation (3) Essential hypertension Assessment/Plan: controlled Code(s): I10 - ESSENTIAL (PRIMARY) HYPERTENSION (4) Melanoma Assessment/Plan: s/p excision Ct scan of the chest does not show malignancy Code(s): C43.9 - MALIGNANT MELANOMA OF SKIN, UNSPECIFIED (5) Rectal bleeding Assessment/Plan: resolved restarted Eliquis Code(s): K62.5 - HEMORRHAGE OF ANUS AND RECTUM
[2019-11-13] MEDS: LIDOCAINE PATCH REMOVAL MC SCH (21:45)
[2019-11-14] MEDS: methylPREDNISolone NA SUCC 40 MG/1 ML VIAL IVPUSH SCH ×2 (02:06→09:40)
[2019-11-14] MEDS: LEVALBUTEROL HCL 0.63 MG/3 ML VIAL.NEB. IH SCH ×2 (08:30→12:44)
[2019-11-14] MEDS: POTASSIUM CHLORIDE TABS 20 MEQ TABLET.ER (FP) PO SCH (09:38)
[2019-11-14] MEDS: ENALAPRIL MALEATE 10 MG TABLET (FP) PO SCH ×2 (09:38→21:08)
[2019-11-14] MEDS: NEBIVOLOL 10 MG TABLET (FP) PO SCH (09:38)
[2019-11-14] MEDS: MAGNESIUM OXIDE 400 MG TABLET (FP) PO SCH (09:39)
[2019-11-14] MEDS: APIXABAN 5 MG TABLET PO SCH ×2 (09:39→21:08)
[2019-11-14] MEDS: DULoxetine HCL 30 MG CAPSULE.DR PO SCH (09:39)
[2019-11-14] MEDS: DILTIAZEM CD 120 MG, DILTIAZEM CD 180 MG PO SCH (09:39)
[2019-11-14] MEDS: FUROSEMIDE 40 MG/4 ML INJECTABLE VIAL IVPUSH SCH (09:40)
[2019-11-14] MEDS: LIDOCAINE 5% TOPICAL PATCH TP SCH (10:05)
--- NOTE | 2019-11-14 10:06 | PN ---
Progress Note, Physician Chief Complaint: Not in distress Tolerating therapy Still remains tachycardic especially with nebulizer treatment History of Present Illness: Patient was seen and examined. Awake and alert. Chart was reviewed Denies chest pain or palpitations. AF with RVR GI input noted - Current Medication List Current Medications: Active Medications Acetaminophen (Tylenol -) 1,000 mg PO Q6H PRN PRN Reason: PAIN LEVEL 6-10 Last Admin: 11/11/19 13:21 Dose: 1,000 mg Apixaban (Eliquis -) 5 mg PO BID [facility] Last Admin: 11/14/19 09:39 Dose: 5 mg Diltiazem HCl 120 mg/ (Diltiazem HCl 180 mg) 300 mg PO DAILY [facility] Last Admin: 11/14/19 09:39 Dose: 300 mg Duloxetine HCl (Cymbalta -) 60 mg PO DAILY [facility] Last Admin: 11/14/19 09:39 Dose: 60 mg Enalapril Maleate (Vasotec -) 20 mg PO BID [facility] Last Admin: 11/14/19 09:38 Dose: 20 mg Furosemide (Lasix Injection -) 40 mg IVPUSH DAILY [facility] Last Admin: 11/14/19 09:40 Dose: 40 mg Levalbuterol HCl (Xopenex) 0.63 mg IH RQID [facility] Last Admin: 11/14/19 08:30 Dose: 0.63 mg Lidocaine (Lidoderm Patch -) 2 patch TP DAILY [facility] Last Admin: 11/13/19 10:56 Dose: 2 patch Magnesium Oxide (Mag-Ox -) 400 mg PO DAILY [facility] Last Admin: 11/14/19 09:39 Dose: 400 mg Methylprednisolone Sodium Succinate (Solu-Medrol -) 30 mg IVPUSH Q8H-IV [facility] Last Admin: 11/14/19 09:40 Dose: 30 mg Metoprolol Tartrate (Lopressor Injection -) 5 mg IVPUSH Q4H PRN PRN Reason: HYPERTENSION Last Admin: 11/13/19 21:46 Dose: 5 mg Miscellaneous (Lidoderm Patch Removal) 1 each [facility] DAILY@2200 [facility] Last Admin: 11/13/19 21:45 Dose: 1 each Nebivolol (Bystolic -) 20 mg PO DAILY [facility] Last Admin: 11/14/19 09:38 Dose: 20 mg Potassium Chloride (K-Dur -) 40 meq PO DAILY [facility] Last Admin: 11/14/19 09:38 Dose: 40 meq - Objective Vital Signs: Vital Signs Temperature 98.0 F 11/14/19 09:51 Pulse Rate 127 H 11/14/19 09:51 Respiratory Rate 18 11/14/19 09:51 Blood Pressure 145/88 11/14/19 09:51 O2 Sat by Pulse Oximetry (%) 95 11/14/19 09:51 Eyes: Yes: PERRL HENT: Yes: Atraumatic Neck: Yes: Supple Cardiovascular: Yes: Tachycardia, Pulse Irregular, S1, S2 Respiratory: Yes: Diminished Gastrointestinal: Yes: Normal Bowel Sounds, Soft. No: Tenderness Edema: No Additional Findings/Remarks: - Review of Systems Constitutional: denies: Chills, Fever Cardiovascular: reports: Palpitations, Shortness of Breath. denies: Chest Pain Respiratory: reports: Cough, SOB. denies: Hemoptysis, Orthopnea, PND Gastrointestinal: denies: Abdominal Pain, Constipation, Diarrhea, Melena, Nausea , Rectal Bleeding, Vomiting Genitourinary: denies: Dysuria, Hematuria Musculoskeletal: reports: Joint Pain. denies: Back Pain Neurological: denies: Dizziness, Headache, Seizure, Syncope Labs: CBC, BMP 11/13/19 06:45 11/13/19 06:45 Problem List - Problems (1) Atrial fibrillation Code(s): I48.91 - UNSPECIFIED ATRIAL FIBRILLATION Qualifiers: Atrial fibrillation type: longstanding persistent Qualified Code(s): I48.11 - Longstanding persistent atrial fibrillation (2) CHF (congestive heart failure) Code(s): I50.9 - HEART FAILURE, UNSPECIFIED Qualifiers: Heart failure type: diastolic Heart failure chronicity: acute on chronic Qualified Code(s): I50.33 - Acute on chronic diastolic (congestive) heart failure (3) Melanoma Code(s): C43.9 - MALIGNANT MELANOMA OF SKIN, UNSPECIFIED (4) Essential hypertension Code(s): I10 - ESSENTIAL (PRIMARY) HYPERTENSION (5) Aortic valve regurgitation Code(s): I35.1 - NONRHEUMATIC AORTIC (VALVE) INSUFFICIENCY Qualifiers: Cardiac valve disease etiology: nonrheumatic Qualified Code(s): I35.1 - Nonrheumatic aortic (valve) insufficiency (6) Tricuspid valve regurgitation Code(s): I07.1 - RHEUMATIC TRICUSPID INSUFFICIENCY Qualifiers: Cardiac valve disease etiology: nonrheumatic Qualified Code(s): I36.1 - Nonrheumatic tricuspid (valve) insufficiency (7) Shortness of breath Code(s): R06.02 - SHORTNESS OF BREATH Assessment/Plan 1. Acute on chronic class I-II NYHA classification LV diastolic failure 2. Persistent atrial fibrillation with RVR on A/C with DOAC/Eliquis 3. CAD with evidence of coronary artery calcification on CT scan of the chest angina pectoris 4. Pneumonia, clinically resolving 5. HTN 6. CKD with pre-renal azotemia, with acute exacerbation 7. History of melanoma 8. Hyponatremia, resolved 9. Hypokalemia, resolved 10. Rectal bleed PLAN: 1. Continue Eliquis 5 mg BID with caution 2. Continue Bystolic 20 mg QD initiated as an alternative to Atenolol related to persistent wheeze/broncho-spasm. 3. Continue Cardizem CD 300 mg QD but still remains RVR. May consider Digoxin 0.125 mg probable every other day. May give IV dose of Digoxin initially 4. Restarted on Lasix 40 mg IV QD and monitor renal function and electrolytes 5. Bronchodilators, IV steroids, O2 and antibiotics Further plans are to follow Seng Enriquez MD
[2019-11-14] MEDS ORDERED: DIGOXIN 0.5 MG/2 ML AMPUL IVPUSH ONE ×2 (10:13→16:00)
[2019-11-14] MEDS ORDERED: LEVALBUTEROL HCL 0.31 MG/3 ML VIAL.NEB IH PRN (14:58)
--- NOTE | 2019-11-14 14:59 | PN ---
Progress Note (short form) - Note Progress Note: PULMONARY Still with dyspnea on exertion. Heart rates remain rapid. Vital Signs Period Temp Pulse Resp BP Sys/Valenzuela Pulse Ox Last 24 Hr 97.3 F-98.0 F 89-137 18-20 124-145/64-88 95-99 Intake & Output 11/11/19 11/12/19 11/13/19 11/14/19 23:59 23:59 23:59 23:59 Intake Total 800 500 600 Output Total 300 Balance 800 200 600 Weight 70.789 kg 70.392 kg 70.477 kg 69.626 kg Gen: mildly tachypneic with exertion Heart: tachycardic, irregular Lung: scattered rhonchi, wheezes Abd: soft, nontender Ext: no edema CBC, BMP 11/13/19 06:45 11/13/19 06:45 Active Medications Acetaminophen (Tylenol -) 1,000 mg PO Q6H PRN PRN Reason: PAIN LEVEL 6-10 Last Admin: 11/11/19 13:21 Dose: 1,000 mg Apixaban (Eliquis -) 5 mg PO BID [facility] Last Admin: 11/14/19 09:39 Dose: 5 mg Digoxin (Lanoxin Injection -) 0.25 mg IVPUSH ONCE ONE Stop: 11/14/19 16:01 Digoxin (Lanoxin -) 0.125 mg PO Q48H [facility] Diltiazem HCl 120 mg/ (Diltiazem HCl 180 mg) 300 mg PO DAILY [facility] Last Admin: 11/14/19 09:39 Dose: 300 mg Duloxetine HCl (Cymbalta -) 60 mg PO DAILY [facility] Last Admin: 11/14/19 09:39 Dose: 60 mg Enalapril Maleate (Vasotec -) 20 mg PO BID [facility] Last Admin: 11/14/19 09:38 Dose: 20 mg Furosemide (Lasix Injection -) 40 mg IVPUSH DAILY [facility] Last Admin: 11/14/19 09:40 Dose: 40 mg Levalbuterol HCl (Xopenex) 0.63 mg IH RQID [facility] Last Admin: 11/14/19 12:44 Dose: 0.63 mg Lidocaine (Lidoderm Patch -) 2 patch TP DAILY [facility] Last Admin: 11/14/19 10:05 Dose: 2 patch Magnesium Oxide (Mag-Ox -) 400 mg PO DAILY [facility] Last Admin: 11/14/19 09:39 Dose: 400 mg Methylprednisolone Sodium Succinate (Solu-Medrol -) 30 mg IVPUSH Q8H-IV [facility] Last Admin: 11/14/19 09:40 Dose: 30 mg Metoprolol Tartrate (Lopressor Injection -) 5 mg IVPUSH Q4H PRN PRN Reason: HYPERTENSION Last Admin: 11/13/19 21:46 Dose: 5 mg Miscellaneous (Lidoderm Patch Removal) 1 each [facility] DAILY@2200 [facility] Last Admin: 11/13/19 21:45 Dose: 1 each Nebivolol (Bystolic -) 20 mg PO DAILY [facility] Last Admin: 11/14/19 09:38 Dose: 20 mg Potassium Chloride (K-Dur -) 40 meq PO DAILY [facility] Last Admin: 11/14/19 09:38 Dose: 40 meq A/P Acute on Chronic Diastolic Heart Failure Atrial Fibrillation with RVR CAD HTN CKD Pneumonia treated - would d/c beta agonists or make PRN for better heart rate control - pt without history of asthma/COPD, clinical exam may be from cardiac wheeze - would taper off medrol - repeat CXR - O2 to keep SpO2 >90% - rate control - continue anticoagulation
--- NOTE | 2019-11-14 17:04 | PN ---
Progress Note, Physician Chief Complaint: Patient is slightly better. There is less wheezing or rales.There is no more rectal bleeding. The appetite is good and her bowel movements are normal. She is confused and is agitated at night. History of Present Illness: 89 yo female admitted for rapid Afib, and congestive heart failure, continues to experience shortness of breath and wheezing. Patient received IV diuresis which was administered only for a couple of days because her renal function deteriorated. She received a total of 80 mg of Lasix yesterday with some improvement of her wheezing.. - Current Medication List Current Medications: Active Medications Acetaminophen (Tylenol -) 1,000 mg PO Q6H PRN PRN Reason: PAIN LEVEL 6-10 Last Admin: 11/11/19 13:21 Dose: 1,000 mg Apixaban (Eliquis -) 5 mg PO BID [facility] Last Admin: 11/14/19 09:39 Dose: 5 mg Digoxin (Lanoxin -) 0.125 mg PO Q48H [facility] Diltiazem HCl 120 mg/ (Diltiazem HCl 180 mg) 300 mg PO DAILY [facility] Last Admin: 11/14/19 09:39 Dose: 300 mg Duloxetine HCl (Cymbalta -) 60 mg PO DAILY [facility] Last Admin: 11/14/19 09:39 Dose: 60 mg Enalapril Maleate (Vasotec -) 20 mg PO BID [facility] Last Admin: 11/14/19 09:38 Dose: 20 mg Furosemide (Lasix Injection -) 40 mg IVPUSH DAILY [facility] Last Admin: 11/14/19 09:40 Dose: 40 mg Levalbuterol HCl (Xopenex) 0.31 mg IH Q8H PRN PRN Reason: ASTHMA Lidocaine (Lidoderm Patch -) 2 patch TP DAILY [facility] Last Admin: 11/14/19 10:05 Dose: 2 patch Magnesium Oxide (Mag-Ox -) 400 mg PO DAILY [facility] Last Admin: 11/14/19 09:39 Dose: 400 mg Methylprednisolone Sodium Succinate (Solu-Medrol -) 30 mg IVPUSH DAILY [facility] Metoprolol Tartrate (Lopressor Injection -) 5 mg IVPUSH Q4H PRN PRN Reason: HYPERTENSION Last Admin: 11/13/19 21:46 Dose: 5 mg Miscellaneous (Lidoderm Patch Removal) 1 each MC DAILY@2200 [facility] Last Admin: 11/13/19 21:45 Dose: 1 each Nebivolol (Bystolic -) 20 mg PO DAILY [facility] Last Admin: 11/14/19 09:38 Dose: 20 mg Potassium Chloride (K-Dur -) 40 meq PO DAILY [facility] Last Admin: 11/14/19 09:38 Dose: 40 meq - Objective Vital Signs: Vital Signs Temperature 98.0 F 11/14/19 09:51 Pulse Rate 130 H 11/14/19 10:50 Respiratory Rate 18 11/14/19 09:51 Blood Pressure 145/88 11/14/19 09:51 O2 Sat by Pulse Oximetry (%) 95 11/14/19 09:51 Constitutional: Yes: No Distress, Calm Eyes: Yes: Conjunctiva Clear, EOM Intact HENT: Yes: Atraumatic, Normocephalic Neck: Yes: Supple, Trachea Midline Cardiovascular: Yes: Regular Rate and Rhythm, Tachycardia Respiratory: Yes: Regular, CTA Bilaterally Gastrointestinal: Yes: Normal Bowel Sounds, Soft. No: Hepatomegaly, Splenomegaly Extremities: No: Calf Tenderness Edema: No Peripheral Pulses WNL: Yes Neurological: Yes: Alert, Oriented Labs: CBC, BMP 11/13/19 06:45 11/13/19 06:45 Problem List - Problems (1) CHF (congestive heart failure) Assessment/Plan: needs control of her HR in order to improve the CHF Problems reviewed: Yes Code(s): I50.9 - HEART FAILURE, UNSPECIFIED Qualifiers: Heart failure type: diastolic Heart failure chronicity: acute on chronic Qualified Code(s): I50.33 - Acute on chronic diastolic (congestive) heart failure (2) Atrial fibrillation Assessment/Plan: continue Bystolic, Xopenex nebulizer was stopped Cardizem was increased to 300 mg po daily Digoxin was started this am continue Eliquis 5 mg bid Code(s): I48.91 - UNSPECIFIED ATRIAL FIBRILLATION Qualifiers: Atrial fibrillation type: longstanding persistent Qualified Code(s): I48.11 - Longstanding persistent atrial fibrillation (3) Essential hypertension Assessment/Plan: controlled Code(s): I10 - ESSENTIAL (PRIMARY) HYPERTENSION (4) Melanoma Assessment/Plan: s/p excision Ct scan of the chest does not show malignancy Code(s): C43.9 - MALIGNANT MELANOMA OF SKIN, UNSPECIFIED (5) Rectal bleeding Assessment/Plan: resolved restarted Eliquis Code(s): K62.5 - HEMORRHAGE OF ANUS AND RECTUM
[2019-11-14] MEDS: LIDOCAINE PATCH REMOVAL MC SCH (21:11)
[2019-11-14] MEDS ORDERED: QUEtiapine FUMARATE 25 MG TABLET PO SCH (22:00)
[2019-11-15 07:52] LABS: ALBUMIN 3.3 g/dl (3.4-5.0); BILIRUBIN,TOTAL 1.6 mg/dl (0.2-1); CALCIUM 9.2 mg/dl (8.5-10); CREATININE 1.1 mg/dl (0.55-1.3); POTASSIUM 3.9 mmol/L (3.5-5.1); TOT PROT 5.2 g/dl (6.4-8.2)
[2019-11-15 07:54] LABS: MEAN PLT VOLUME 9.9 fl (7.5-11.1); PLATELET COUNT 154 K/MM3 (134-434)
[2019-11-15 08:08] LABS: HEMATOCRIT 45.7 % (32.4-45.2); HEMOGLOBIN 14.8 GM/dl (10.7-15.3); MCH 26.5 pg (25.7-33.7); MCHC 32.3 g/dl (32.0-36.0); MEAN CELL VOLUME 81.9 fl (80-96); RBC 5.57 M/mm3 (3.60-5.2); RDW 14.2 % (11.6-15.6)
[2019-11-15 08:38] LABS: PLATELET ESTIMATE ADEQUATE
[2019-11-15 08:45] VITALS: BMI 26.9
--- NOTE | 2019-11-15 08:48 | PN ---
Progress Note, Physician History of Present Illness: Agitated earlier this AM, now resting with improved rate-control afib. - Current Medication List Current Medications: Active Medications Acetaminophen (Tylenol -) 1,000 mg PO Q6H PRN PRN Reason: PAIN LEVEL 6-10 Last Admin: 11/11/19 13:21 Dose: 1,000 mg Apixaban (Eliquis -) 5 mg PO BID [facility] Last Admin: 11/14/19 21:08 Dose: 5 mg Digoxin (Lanoxin -) 0.125 mg PO Q48H [facility] Diltiazem HCl 120 mg/ (Diltiazem HCl 180 mg) 300 mg PO DAILY [facility] Last Admin: 11/14/19 09:39 Dose: 300 mg Duloxetine HCl (Cymbalta -) 60 mg PO DAILY [facility] Last Admin: 11/14/19 09:39 Dose: 60 mg Enalapril Maleate (Vasotec -) 20 mg PO BID [facility] Last Admin: 11/14/19 21:08 Dose: 20 mg Furosemide (Lasix Injection -) 40 mg IVPUSH DAILY [facility] Last Admin: 11/14/19 09:40 Dose: 40 mg Levalbuterol HCl (Xopenex) 0.31 mg IH Q8H PRN PRN Reason: ASTHMA Lidocaine (Lidoderm Patch -) 2 patch TP DAILY [facility] Last Admin: 11/14/19 10:05 Dose: 2 patch Magnesium Oxide (Mag-Ox -) 400 mg PO DAILY [facility] Last Admin: 11/14/19 09:39 Dose: 400 mg Methylprednisolone Sodium Succinate (Solu-Medrol -) 30 mg IVPUSH DAILY [facility] Metoprolol Tartrate (Lopressor Injection -) 5 mg IVPUSH Q4H PRN PRN Reason: HYPERTENSION Last Admin: 11/13/19 21:46 Dose: 5 mg Miscellaneous (Lidoderm Patch Removal) 1 each [facility] DAILY@2200 [facility] Last Admin: 11/14/19 21:11 Dose: 1 each Nebivolol (Bystolic -) 20 mg PO DAILY [facility] Last Admin: 11/14/19 09:38 Dose: 20 mg Potassium Chloride (K-Dur -) 40 meq PO DAILY [facility] Last Admin: 11/14/19 09:38 Dose: 40 meq Quetiapine Fumarate (Seroquel -) 12.5 mg PO HS [facility] Last Admin: 11/14/19 21:08 Dose: 12.5 mg - Objective Vital Signs: Vital Signs Temperature 97.6 F 11/15/19 07:13 Pulse Rate 62 11/15/19 07:13 Respiratory Rate 18 11/15/19 07:13 Blood Pressure 130/94 11/15/19 07:13 O2 Sat by Pulse Oximetry (%) 97 11/15/19 07:12 Constitutional: Yes: No Distress, Calm, Thin Neck: Yes: Supple Cardiovascular: Yes: Pulse Irregular Respiratory: Yes: Regular, Diminished, On Nasal O2 Gastrointestinal: Yes: Soft, Hypoactive Bowel Sounds Edema: No Labs: CBC, BMP 11/15/19 06:35 11/15/19 06:35 - ....Imaging Chest X-ray: Report Reviewed (NAD) Problem List - Problems (1) DESMOND (acute kidney injury) Code(s): N17.9 - ACUTE KIDNEY FAILURE, UNSPECIFIED (2) Azotemia Code(s): R79.89 - OTHER SPECIFIED ABNORMAL FINDINGS OF BLOOD CHEMISTRY (3) Atrial fibrillation Code(s): I48.91 - UNSPECIFIED ATRIAL FIBRILLATION Qualifiers: Atrial fibrillation type: longstanding persistent Qualified Code(s): I48.11 - Longstanding persistent atrial fibrillation (4) CHF (congestive heart failure) Code(s): I50.9 - HEART FAILURE, UNSPECIFIED Qualifiers: Heart failure type: diastolic Heart failure chronicity: acute on chronic Qualified Code(s): I50.33 - Acute on chronic diastolic (congestive) heart failure (5) Shortness of breath Code(s): R06.02 - SHORTNESS OF BREATH Assessment/Plan CT CHEST: FLUID IN FISSURE LEFT UPPER LOBE /WITH B/L EFFUSIONS/CARDIOMEGALY 1. Acute on chronic LV diastolic failure improving 2. Persistent atrial fibrillation with RVR on A/C with DOAC/Eliquis 3. CAD with evidence of coronary artery calcification on CT scan of the chest angina pectoris 4. Pneumonia treated 5. HTN 6. CKD with pre-renal azotemia, with acute exacerbation 7. History of melanoma 8. Hyponatremia, resolved 9. Hypokalemia, resolved 10. Rectal bleed PLAN: 1. Continue Eliquis 5 mg BID with caution 2. Continue Bystolic 20 mg QD with IV Lopressor as needed for rate-control 3. Continue Cardizem CD 300 mg QD, Digoxin 0.125 mg every other day. May give IV dose of Digoxin initially 4. Change Lasix 40 mg IV QD to chlorthalidone 25 qd and vasotec 20 bid with monitor renal function and electrolytes 5. Bronchodilators, IV steroid taper, O2 and completed antibiotic course
[2019-11-15] MEDS ORDERED: DIGOXIN 0.125 MG TABLET (FP) PO SCH (10:00)
[2019-11-15] MEDS: NEBIVOLOL 10 MG TABLET (FP) PO SCH (10:08)
[2019-11-15] MEDS: DULoxetine HCL 30 MG CAPSULE.DR PO SCH (10:08)
[2019-11-15] MEDS: ENALAPRIL MALEATE 10 MG TABLET (FP) PO SCH ×2 (10:09→22:36)
[2019-11-15] MEDS: MAGNESIUM OXIDE 400 MG TABLET (FP) PO SCH (10:09)
[2019-11-15] MEDS: APIXABAN 5 MG TABLET PO SCH ×2 (10:10→22:36)
[2019-11-15] MEDS: DILTIAZEM CD 120 MG, DILTIAZEM CD 180 MG PO SCH (10:10)
[2019-11-15] MEDS: FUROSEMIDE 40 MG/4 ML INJECTABLE VIAL IVPUSH SCH (10:10)
[2019-11-15] MEDS: POTASSIUM CHLORIDE TABS 20 MEQ TABLET.ER (FP) PO SCH (10:11)
[2019-11-15] MEDS: LIDOCAINE 5% TOPICAL PATCH TP SCH (10:11)
[2019-11-15] MEDS: methylPREDNISolone NA SUCC 40 MG/1 ML VIAL IVPUSH SCH (10:12)
--- NOTE | 2019-11-15 15:12 | PN ---
Progress Note, Physician Chief Complaint: Patient is better, with less wheezing. .There is no more rectal bleeding. The appetite is good and her bowel movements are normal. She is confused and is agitated at night. History of Present Illness: 89 yo female admitted for rapid Afib, and congestive heart failure, continues to experience shortness of breath and wheezing. Patient received IV diuresis which was administered only for a couple of days because her renal function deteriorated. She received a total of 80 mg of Lasix yesterday with some improvement of her wheezing.. - Current Medication List Current Medications: Active Medications Acetaminophen (Tylenol -) 1,000 mg PO Q6H PRN PRN Reason: PAIN LEVEL 6-10 Last Admin: 11/11/19 13:21 Dose: 1,000 mg Apixaban (Eliquis -) 5 mg PO BID [facility] Last Admin: 11/15/19 10:10 Dose: 5 mg Chlorthalidone (Hygroton -) 25 mg PO DAILY [facility] Digoxin (Lanoxin -) 0.125 mg PO Q48H [facility] Last Admin: 11/15/19 10:09 Dose: 0.125 mg Diltiazem HCl 120 mg/ (Diltiazem HCl 180 mg) 300 mg PO DAILY [facility] Last Admin: 11/15/19 10:10 Dose: 300 mg Duloxetine HCl (Cymbalta -) 60 mg PO DAILY [facility] Last Admin: 11/15/19 10:08 Dose: 60 mg Enalapril Maleate (Vasotec -) 20 mg PO BID [facility] Last Admin: 11/15/19 10:09 Dose: 20 mg Furosemide (Lasix Injection -) 40 mg IVPUSH DAILY [facility] Stop: 11/15/19 23:59 Last Admin: 11/15/19 10:10 Dose: 40 mg Levalbuterol HCl (Xopenex) 0.31 mg IH Q8H PRN PRN Reason: ASTHMA Lidocaine (Lidoderm Patch -) 2 patch TP DAILY [facility] Last Admin: 11/15/19 10:11 Dose: 2 patch Magnesium Oxide (Mag-Ox -) 400 mg PO DAILY [facility] Last Admin: 11/15/19 10:09 Dose: 400 mg Methylprednisolone Sodium Succinate (Solu-Medrol -) 30 mg IVPUSH DAILY [facility] Last Admin: 11/15/19 10:12 Dose: 30 mg Metoprolol Tartrate (Lopressor Injection -) 5 mg IVPUSH Q4H PRN PRN Reason: HYPERTENSION Last Admin: 11/13/19 21:46 Dose: 5 mg Miscellaneous (Lidoderm Patch Removal) 1 each [facility] DAILY@2200 [facility] Last Admin: 11/14/19 21:11 Dose: 1 each Nebivolol (Bystolic -) 20 mg PO DAILY [facility] Last Admin: 11/15/19 10:08 Dose: 20 mg Potassium Chloride (K-Dur -) 40 meq PO DAILY [facility] Last Admin: 11/15/19 10:11 Dose: 40 meq Quetiapine Fumarate (Seroquel -) 12.5 mg PO HS [facility] Last Admin: 11/14/19 21:08 Dose: 12.5 mg - Objective Vital Signs: Vital Signs Temperature 98.3 F 11/15/19 14:30 Pulse Rate 111 H 11/15/19 14:30 Respiratory Rate 18 11/15/19 14:30 Blood Pressure 131/64 11/15/19 14:30 O2 Sat by Pulse Oximetry (%) 93 L 11/15/19 14:30 Labs: CBC, BMP 11/15/19 06:35 11/15/19 06:35 Problem List - Problems (1) CHF (congestive heart failure) Code(s): I50.9 - HEART FAILURE, UNSPECIFIED Qualifiers: Heart failure type: diastolic Heart failure chronicity: acute on chronic Qualified Code(s): I50.33 - Acute on chronic diastolic (congestive) heart failure (2) Atrial fibrillation Code(s): I48.91 - UNSPECIFIED ATRIAL FIBRILLATION Qualifiers: Atrial fibrillation type: longstanding persistent Qualified Code(s): I48.11 - Longstanding persistent atrial fibrillation (3) Essential hypertension Code(s): I10 - ESSENTIAL (PRIMARY) HYPERTENSION (4) Melanoma Code(s): C43.9 - MALIGNANT MELANOMA OF SKIN, UNSPECIFIED (5) Rectal bleeding Code(s): K62.5 - HEMORRHAGE OF ANUS AND RECTUM
[2019-11-15] MEDS: LIDOCAINE PATCH REMOVAL MC SCH (22:36)
[2019-11-16 09:03] LABS: ALBUMIN 3.2 g/dl (3.4-5.0); BILIRUBIN,TOTAL 1.4 mg/dl (0.2-1); CALCIUM 9.4 mg/dl (8.5-10); CREATININE 0.9 mg/dl (0.55-1.3); POTASSIUM 3.6 mmol/L (3.5-5.1); TOT PROT 5.1 g/dl (6.4-8.2)
[2019-11-16] MEDS: DULoxetine HCL 30 MG CAPSULE.DR PO SCH (09:24)
[2019-11-16] MEDS: POTASSIUM CHLORIDE TABS 20 MEQ TABLET.ER (FP) PO SCH (09:24)
[2019-11-16] MEDS: LIDOCAINE 5% TOPICAL PATCH TP SCH (09:24)
[2019-11-16] MEDS: MAGNESIUM OXIDE 400 MG TABLET (FP) PO SCH (09:25)
[2019-11-16] MEDS: APIXABAN 5 MG TABLET PO SCH ×2 (09:25→22:20)
[2019-11-16] MEDS: DILTIAZEM CD 120 MG, DILTIAZEM CD 180 MG PO SCH (09:25)
[2019-11-16] MEDS: methylPREDNISolone NA SUCC 40 MG/1 ML VIAL IVPUSH SCH (09:26)
[2019-11-16] MEDS: ENALAPRIL MALEATE 10 MG TABLET (FP) PO SCH ×2 (09:30→22:20)
[2019-11-16] MEDS: CHLORTHALIDONE 25 MG TABLET PO SCH (09:30)
[2019-11-16] MEDS: NEBIVOLOL 10 MG TABLET (FP) PO SCH (09:38)
--- NOTE | 2019-11-16 09:59 | PN ---
Progress Note, Physician Chief Complaint: Patient is better,not coughing, not wheezing. HR is still fast.There was no more rectal bleeding. The appetite is good and her bowel movements are normal. - Current Medication List Current Medications: Active Medications Acetaminophen (Tylenol -) 1,000 mg PO Q6H PRN PRN Reason: PAIN LEVEL 6-10 Last Admin: 11/11/19 13:21 Dose: 1,000 mg Apixaban (Eliquis -) 5 mg PO BID [facility] Last Admin: 11/16/19 09:25 Dose: 5 mg Chlorthalidone (Hygroton -) 25 mg PO DAILY [facility] Last Admin: 11/16/19 09:30 Dose: 25 mg Digoxin (Lanoxin -) 0.125 mg PO Q48H [facility] Last Admin: 11/15/19 10:09 Dose: 0.125 mg Diltiazem HCl 120 mg/ (Diltiazem HCl 180 mg) 300 mg PO DAILY [facility] Last Admin: 11/16/19 09:25 Dose: 300 mg Duloxetine HCl (Cymbalta -) 60 mg PO DAILY [facility] Last Admin: 11/16/19 09:24 Dose: 60 mg Enalapril Maleate (Vasotec -) 20 mg PO BID [facility] Last Admin: 11/16/19 09:30 Dose: 20 mg Levalbuterol HCl (Xopenex) 0.31 mg IH Q8H PRN PRN Reason: ASTHMA Lidocaine (Lidoderm Patch -) 2 patch TP DAILY [facility] Last Admin: 11/16/19 09:24 Dose: 2 patch Magnesium Oxide (Mag-Ox -) 400 mg PO DAILY [facility] Last Admin: 11/16/19 09:25 Dose: 400 mg Methylprednisolone Sodium Succinate (Solu-Medrol -) 30 mg IVPUSH DAILY [facility] Last Admin: 11/16/19 09:26 Dose: 30 mg Metoprolol Tartrate (Lopressor Injection -) 5 mg IVPUSH Q4H PRN PRN Reason: HYPERTENSION Last Admin: 11/13/19 21:46 Dose: 5 mg Miscellaneous (Lidoderm Patch Removal) 1 each [facility] DAILY@2200 [facility] Last Admin: 11/15/19 22:36 Dose: 1 each Nebivolol (Bystolic -) 20 mg PO DAILY [facility] Last Admin: 11/16/19 09:38 Dose: 20 mg Potassium Chloride (K-Dur -) 40 meq PO DAILY [facility] Last Admin: 11/16/19 09:24 Dose: 40 meq - Objective Vital Signs: Vital Signs Temperature 97.5 F L 11/16/19 09:39 Pulse Rate 115 H 11/16/19 09:39 Respiratory Rate 20 11/16/19 09:39 Blood Pressure 107/55 L 11/16/19 09:39 O2 Sat by Pulse Oximetry (%) 99 11/16/19 09:42 Constitutional: Yes: No Distress, Calm Eyes: Yes: Conjunctiva Clear, EOM Intact HENT: Yes: Atraumatic, Normocephalic Neck: Yes: Supple, Trachea Midline Cardiovascular: Yes: Tachycardia, Pulse Irregular Respiratory: Yes: Regular, CTA Bilaterally Gastrointestinal: Yes: Normal Bowel Sounds, Soft, Abdomen, Obese Edema: No Neurological: Yes: Alert, Oriented Psychiatric: Yes: Alert, Oriented Labs: CBC, BMP 11/15/19 06:35 11/16/19 08:00 Problem List - Problems (1) CHF (congestive heart failure) Assessment/Plan: needs control of her HR in order to improve the CHF Code(s): I50.9 - HEART FAILURE, UNSPECIFIED Qualifiers: Heart failure type: diastolic Heart failure chronicity: acute on chronic Qualified Code(s): I50.33 - Acute on chronic diastolic (congestive) heart failure (2) Atrial fibrillation Assessment/Plan: continue Bystolic, Xopenex nebulizer was stopped Cardizem was increased to 300 mg po daily Digoxin is therapeutic continue Eliquis 5 mg bid Code(s): I48.91 - UNSPECIFIED ATRIAL FIBRILLATION Qualifiers: Atrial fibrillation type: longstanding persistent Qualified Code(s): I48.11 - Longstanding persistent atrial fibrillation (3) Essential hypertension Assessment/Plan: controlled Code(s): I10 - ESSENTIAL (PRIMARY) HYPERTENSION (4) Melanoma Assessment/Plan: s/p excision Ct scan of the chest does not show malignancy Code(s): C43.9 - MALIGNANT MELANOMA OF SKIN, UNSPECIFIED (5) Rectal bleeding Assessment/Plan: resolved restarted Eliquis Code(s): K62.5 - HEMORRHAGE OF ANUS AND RECTUM
[2019-11-16] MEDS: LACTOBACILLUS ACIDOPHILUS 1 TABLET PO SCH (10:41)
--- NOTE | 2019-11-16 12:56 | PN ---
Progress Note, Physician - Current Medication List Current Medications: Active Medications Acetaminophen (Tylenol -) 1,000 mg PO Q6H PRN PRN Reason: PAIN LEVEL 6-10 Last Admin: 11/11/19 13:21 Dose: 1,000 mg Apixaban (Eliquis -) 5 mg PO BID [facility] Last Admin: 11/16/19 09:25 Dose: 5 mg Chlorthalidone (Hygroton -) 25 mg PO DAILY [facility] Last Admin: 11/16/19 09:30 Dose: 25 mg Digoxin (Lanoxin -) 0.125 mg PO Q48H [facility] Last Admin: 11/15/19 10:09 Dose: 0.125 mg Diltiazem HCl 120 mg/ (Diltiazem HCl 180 mg) 300 mg PO DAILY [facility] Last Admin: 11/16/19 09:25 Dose: 300 mg Duloxetine HCl (Cymbalta -) 60 mg PO DAILY [facility] Last Admin: 11/16/19 09:24 Dose: 60 mg Enalapril Maleate (Vasotec -) 20 mg PO BID [facility] Last Admin: 11/16/19 09:30 Dose: 20 mg Lactobacillus Acidophilus (Bacid -) 1 tab PO DAILY [facility] Last Admin: 11/16/19 10:41 Dose: 1 tab Levalbuterol HCl (Xopenex) 0.31 mg IH Q8H PRN PRN Reason: ASTHMA Lidocaine (Lidoderm Patch -) 2 patch TP DAILY [facility] Last Admin: 11/16/19 09:24 Dose: 2 patch Magnesium Oxide (Mag-Ox -) 400 mg PO DAILY [facility] Last Admin: 11/16/19 09:25 Dose: 400 mg Methylprednisolone Sodium Succinate (Solu-Medrol -) 30 mg IVPUSH DAILY [facility] Last Admin: 11/16/19 09:26 Dose: 30 mg Metoprolol Tartrate (Lopressor Injection -) 5 mg IVPUSH Q4H PRN PRN Reason: HYPERTENSION Last Admin: 11/13/19 21:46 Dose: 5 mg Miscellaneous (Lidoderm Patch Removal) 1 each MC DAILY@2200 [facility] Last Admin: 11/15/19 22:36 Dose: 1 each Nebivolol (Bystolic -) 20 mg PO DAILY [facility] Last Admin: 11/16/19 09:38 Dose: 20 mg Potassium Chloride (K-Dur -) 40 meq PO DAILY [facility] Last Admin: 11/16/19 09:24 Dose: 40 meq - Objective Vital Signs: Vital Signs Temperature 97.5 F L 11/16/19 09:39 Pulse Rate 115 H 11/16/19 11:32 Respiratory Rate 20 11/16/19 09:39 Blood Pressure 107/55 L 11/16/19 09:39 O2 Sat by Pulse Oximetry (%) 99 11/16/19 09:42 Labs: CBC, BMP 11/15/19 06:35 11/16/19 08:00 Assessment/Plan A/P Acute on Chronic Diastolic Heart Failure Atrial Fibrillation with RVR CAD HTN CKD Pneumonia treated - would d/c beta agonists or make PRN for better heart rate control - pt without history of asthma/COPD, clinical exam may be from cardiac wheeze - would taper off medrol - repeat CXR - O2 to keep SpO2 >90% - rate control - continue anticoagulation
--- NOTE | 2019-11-16 12:59 | PN ---
Progress Note, Physician Chief Complaint: Not in distress Tolerating therapy Remains in AF with HR 110 bpm History of Present Illness: Patient was seen and examined. Awake and alert. Chart was reviewed Denies chest pain, SOB or palpitations. - Current Medication List Current Medications: Active Medications Acetaminophen (Tylenol -) 1,000 mg PO Q6H PRN PRN Reason: PAIN LEVEL 6-10 Last Admin: 11/11/19 13:21 Dose: 1,000 mg Apixaban (Eliquis -) 5 mg PO BID [facility] Last Admin: 11/16/19 09:25 Dose: 5 mg Chlorthalidone (Hygroton -) 25 mg PO DAILY [facility] Last Admin: 11/16/19 09:30 Dose: 25 mg Digoxin (Lanoxin -) 0.125 mg PO Q48H [facility] Last Admin: 11/15/19 10:09 Dose: 0.125 mg Diltiazem HCl 120 mg/ (Diltiazem HCl 180 mg) 300 mg PO DAILY [facility] Last Admin: 11/16/19 09:25 Dose: 300 mg Duloxetine HCl (Cymbalta -) 60 mg PO DAILY [facility] Last Admin: 11/16/19 09:24 Dose: 60 mg Enalapril Maleate (Vasotec -) 20 mg PO BID [facility] Last Admin: 11/16/19 09:30 Dose: 20 mg Lactobacillus Acidophilus (Bacid -) 1 tab PO DAILY [facility] Last Admin: 11/16/19 10:41 Dose: 1 tab Levalbuterol HCl (Xopenex) 0.31 mg IH Q8H PRN PRN Reason: ASTHMA Lidocaine (Lidoderm Patch -) 2 patch TP DAILY [facility] Last Admin: 11/16/19 09:24 Dose: 2 patch Magnesium Oxide (Mag-Ox -) 400 mg PO DAILY [facility] Last Admin: 11/16/19 09:25 Dose: 400 mg Methylprednisolone Sodium Succinate (Solu-Medrol -) 30 mg IVPUSH DAILY [facility] Last Admin: 11/16/19 09:26 Dose: 30 mg Metoprolol Tartrate (Lopressor Injection -) 5 mg IVPUSH Q4H PRN PRN Reason: HYPERTENSION Last Admin: 11/13/19 21:46 Dose: 5 mg Miscellaneous (Lidoderm Patch Removal) 1 each MC DAILY@2200 [facility] Last Admin: 11/15/19 22:36 Dose: 1 each Nebivolol (Bystolic -) 20 mg PO DAILY [facility] Last Admin: 11/16/19 09:38 Dose: 20 mg Potassium Chloride (K-Dur -) 40 meq PO DAILY [facility] Last Admin: 11/16/19 09:24 Dose: 40 meq - Objective Vital Signs: Vital Signs Temperature 97.5 F L 11/16/19 09:39 Pulse Rate 115 H 11/16/19 11:32 Respiratory Rate 20 11/16/19 09:39 Blood Pressure 107/55 L 11/16/19 09:39 O2 Sat by Pulse Oximetry (%) 99 11/16/19 09:42 Eyes: Yes: PERRL HENT: Yes: Atraumatic Neck: Yes: Supple Cardiovascular: Yes: Tachycardia, Pulse Irregular, S1, S2 Respiratory: Yes: Diminished, Rhonchi Gastrointestinal: Yes: Normal Bowel Sounds, Soft. No: Tenderness Edema: No Additional Findings/Remarks: - Review of Systems Constitutional: denies: Chills, Fever Cardiovascular: reports: Palpitations, Shortness of Breath. denies: Chest Pain Respiratory: reports: Cough, SOB. denies: Hemoptysis, Orthopnea, PND Gastrointestinal: denies: Abdominal Pain, Constipation, Diarrhea, Melena, Nausea , Rectal Bleeding, Vomiting Genitourinary: denies: Dysuria, Hematuria Musculoskeletal: reports: Joint Pain. denies: Back Pain Neurological: denies: Dizziness, Headache, Seizure, Syncope Labs: CBC, BMP 11/15/19 06:35 11/16/19 08:00 Problem List - Problems (1) Atrial fibrillation Code(s): I48.91 - UNSPECIFIED ATRIAL FIBRILLATION Qualifiers: Atrial fibrillation type: longstanding persistent Qualified Code(s): I48.11 - Longstanding persistent atrial fibrillation (2) CHF (congestive heart failure) Code(s): I50.9 - HEART FAILURE, UNSPECIFIED Qualifiers: Heart failure type: diastolic Heart failure chronicity: acute on chronic Qualified Code(s): I50.33 - Acute on chronic diastolic (congestive) heart failure (3) Melanoma Code(s): C43.9 - MALIGNANT MELANOMA OF SKIN, UNSPECIFIED (4) Essential hypertension Code(s): I10 - ESSENTIAL (PRIMARY) HYPERTENSION (5) Aortic valve regurgitation Code(s): I35.1 - NONRHEUMATIC AORTIC (VALVE) INSUFFICIENCY Qualifiers: Cardiac valve disease etiology: nonrheumatic Qualified Code(s): I35.1 - Nonrheumatic aortic (valve) insufficiency (6) Tricuspid valve regurgitation Code(s): I07.1 - RHEUMATIC TRICUSPID INSUFFICIENCY Qualifiers: Cardiac valve disease etiology: nonrheumatic Qualified Code(s): I36.1 - Nonrheumatic tricuspid (valve) insufficiency (7) Shortness of breath Code(s): R06.02 - SHORTNESS OF BREATH Assessment/Plan 1. Acute on chronic class I-II NYHA classification LV diastolic failure 2. Persistent atrial fibrillation with RVR on A/C with DOAC/Eliquis 3. CAD with evidence of coronary artery calcification on CT scan of the chest angina pectoris 4. Pneumonia, clinically resolving 5. HTN 6. CKD with pre-renal azotemia, with acute exacerbation 7. History of melanoma 8. Hyponatremia, resolved 9. Hypokalemia, resolved 10. Rectal bleed PLAN: 1. Continue Eliquis 5 mg BID with caution 2. Continue Bystolic 20 mg QD initiated as an alternative to Atenolol related to persistent wheeze/broncho-spasm. 3. Continue Cardizem CD 300 mg QD. Continue Digoxin 0.125 mg may use every day for now and follow level (currently 1.14) 4. Bronchodilators, IV steroids, O2 and antibiotics 5. Monitor K. Further plans are to follow Seng Enriquez MD
[2019-11-16] MEDS: DIGOXIN 0.125 MG TABLET (FP) PO SCH (13:48)
[2019-11-16] MEDS: LIDOCAINE PATCH REMOVAL MC SCH (22:20)
[2019-11-17 09:37] LABS: ALBUMIN 3.2 g/dl (3.4-5.0); BILIRUBIN,TOTAL 1.4 mg/dl (0.2-1); CALCIUM 9.3 mg/dl (8.5-10); POTASSIUM 4.1 mmol/L (3.5-5.1); TOT PROT 5.2 g/dl (6.4-8.2)
[2019-11-17] MEDS: LACTOBACILLUS ACIDOPHILUS 1 TABLET PO SCH (09:50)
[2019-11-17] MEDS: DIGOXIN 0.125 MG TABLET (FP) PO SCH (09:51)
[2019-11-17] MEDS: APIXABAN 5 MG TABLET PO SCH ×2 (09:51→21:43)
[2019-11-17] MEDS: CHLORTHALIDONE 25 MG TABLET PO SCH (09:53)
[2019-11-17] MEDS: methylPREDNISolone NA SUCC 40 MG/1 ML VIAL IVPUSH SCH (09:53)
[2019-11-17] MEDS: NEBIVOLOL 10 MG TABLET (FP) PO SCH (09:53)
[2019-11-17] MEDS: LIDOCAINE 5% TOPICAL PATCH TP SCH (09:54)
[2019-11-17] MEDS: DULoxetine HCL 30 MG CAPSULE.DR PO SCH (09:54)
[2019-11-17] MEDS: DILTIAZEM CD 120 MG, DILTIAZEM CD 180 MG PO SCH (09:54)
[2019-11-17] MEDS: MAGNESIUM OXIDE 400 MG TABLET (FP) PO SCH (09:54)
[2019-11-17] MEDS: ENALAPRIL MALEATE 10 MG TABLET (FP) PO SCH ×2 (09:54→21:43)
[2019-11-17] MEDS: POTASSIUM CHLORIDE TABS 20 MEQ TABLET.ER (FP) PO SCH (09:55)
--- NOTE | 2019-11-17 09:56 | PN ---
Progress Note, Physician Chief Complaint: Not in distress Tolerating therapy Remains in AF with RVR History of Present Illness: Patient was seen and examined. Awake and alert. Chart was reviewed Denies chest pain, SOB or palpitations. - Current Medication List Current Medications: Active Medications Acetaminophen (Tylenol -) 1,000 mg PO Q6H PRN PRN Reason: PAIN LEVEL 6-10 Last Admin: 11/11/19 13:21 Dose: 1,000 mg Apixaban (Eliquis -) 5 mg PO BID [facility] Last Admin: 11/16/19 22:20 Dose: 5 mg Chlorthalidone (Hygroton -) 25 mg PO DAILY [facility] Last Admin: 11/16/19 09:30 Dose: 25 mg Digoxin (Lanoxin -) 0.125 mg PO DAILY [facility] Last Admin: 11/16/19 13:48 Dose: 0.125 mg Diltiazem HCl 120 mg/ (Diltiazem HCl 180 mg) 300 mg PO DAILY [facility] Last Admin: 11/16/19 09:25 Dose: 300 mg Duloxetine HCl (Cymbalta -) 60 mg PO DAILY [facility] Last Admin: 11/16/19 09:24 Dose: 60 mg Enalapril Maleate (Vasotec -) 20 mg PO BID [facility] Last Admin: 11/16/19 22:20 Dose: 20 mg Lactobacillus Acidophilus (Bacid -) 1 tab PO DAILY [facility] Last Admin: 11/16/19 10:41 Dose: 1 tab Levalbuterol HCl (Xopenex) 0.31 mg IH Q8H PRN PRN Reason: ASTHMA Lidocaine (Lidoderm Patch -) 2 patch TP DAILY [facility] Last Admin: 11/16/19 09:24 Dose: 2 patch Magnesium Oxide (Mag-Ox -) 400 mg PO DAILY [facility] Last Admin: 11/16/19 09:25 Dose: 400 mg Methylprednisolone Sodium Succinate (Solu-Medrol -) 30 mg IVPUSH DAILY [facility] Last Admin: 11/16/19 09:26 Dose: 30 mg Metoprolol Tartrate (Lopressor Injection -) 5 mg IVPUSH Q4H PRN PRN Reason: HYPERTENSION Last Admin: 11/13/19 21:46 Dose: 5 mg Miscellaneous (Lidoderm Patch Removal) 1 each MC DAILY@2200 [facility] Last Admin: 11/16/19 22:20 Dose: 1 each Nebivolol (Bystolic -) 20 mg PO DAILY [facility] Last Admin: 11/16/19 09:38 Dose: 20 mg Potassium Chloride (K-Dur -) 40 meq PO DAILY [facility] Last Admin: 11/16/19 09:24 Dose: 40 meq - Objective Vital Signs: Vital Signs Temperature 98.6 F 11/17/19 08:46 Pulse Rate 111 H 11/17/19 08:46 Respiratory Rate 20 11/17/19 08:46 Blood Pressure 123/67 11/17/19 08:46 O2 Sat by Pulse Oximetry (%) 99 11/17/19 08:47 Eyes: Yes: PERRL HENT: Yes: Atraumatic Neck: Yes: Supple Cardiovascular: Yes: Tachycardia, Pulse Irregular, S1, S2 Respiratory: Yes: Diminished Gastrointestinal: Yes: Normal Bowel Sounds, Soft. No: Tenderness Edema: No Additional Findings/Remarks: - Review of Systems Constitutional: denies: Chills, Fever Cardiovascular: reports: Palpitations, Shortness of Breath. denies: Chest Pain Respiratory: reports: Cough, SOB. denies: Hemoptysis, Orthopnea, PND Gastrointestinal: denies: Abdominal Pain, Constipation, Diarrhea, Melena, Nausea , Rectal Bleeding, Vomiting Genitourinary: denies: Dysuria, Hematuria Musculoskeletal: reports: Joint Pain. denies: Back Pain Neurological: denies: Dizziness, Headache, Seizure, Syncope Labs: CBC, BMP 11/15/19 06:35 11/17/19 08:00 Problem List - Problems (1) Atrial fibrillation Code(s): I48.91 - UNSPECIFIED ATRIAL FIBRILLATION Qualifiers: Atrial fibrillation type: longstanding persistent Qualified Code(s): I48.11 - Longstanding persistent atrial fibrillation (2) CHF (congestive heart failure) Code(s): I50.9 - HEART FAILURE, UNSPECIFIED Qualifiers: Heart failure type: diastolic Heart failure chronicity: acute on chronic Qualified Code(s): I50.33 - Acute on chronic diastolic (congestive) heart failure (3) Melanoma Code(s): C43.9 - MALIGNANT MELANOMA OF SKIN, UNSPECIFIED (4) Essential hypertension Code(s): I10 - ESSENTIAL (PRIMARY) HYPERTENSION (5) Aortic valve regurgitation Code(s): I35.1 - NONRHEUMATIC AORTIC (VALVE) INSUFFICIENCY Qualifiers: Cardiac valve disease etiology: nonrheumatic Qualified Code(s): I35.1 - Nonrheumatic aortic (valve) insufficiency (6) Tricuspid valve regurgitation Code(s): I07.1 - RHEUMATIC TRICUSPID INSUFFICIENCY Qualifiers: Cardiac valve disease etiology: nonrheumatic Qualified Code(s): I36.1 - Nonrheumatic tricuspid (valve) insufficiency (7) Shortness of breath Code(s): R06.02 - SHORTNESS OF BREATH Assessment/Plan 1. Acute on chronic class I-II NYHA classification LV diastolic failure 2. Persistent atrial fibrillation with RVR on A/C with DOAC/Eliquis 3. CAD with evidence of coronary artery calcification on CT scan of the chest angina pectoris 4. Pneumonia, clinically resolving 5. HTN 6. CKD with pre-renal azotemia, with acute exacerbation 7. History of melanoma 8. Hyponatremia, resolved 9. Hypokalemia, resolved 10. Rectal bleed - stable PLAN: 1. Continue Eliquis 5 mg BID with caution (patient had been on since beginning of September of this year) 2. Continue Bystolic 20 mg QD initiated as an alternative to Atenolol related to persistent wheeze/broncho-spasm. Continue Enalapril 20 mg BID as tolerated 3. Continue Cardizem CD 300 mg QD. Continue Digoxin 0.125 mg daily unless otherwise 4. Consider synchronized cardioversion tomorrow. NPO after MN. No need for DUONG guidance since she has been compliant with Eliquis. 4. Bronchodilators, IV steroids, O2 and antibiotics 5. Monitor K. Further plans are to follow Seng Enriquez MD
--- NOTE | 2019-11-17 10:25 | ED.PROV ---
Physicial Exam I saw and examined the patient. - Vital Signs Last Vital Signs Temp Pulse Resp BP Pulse Ox 98.6 F 95 H 20 123/67 99 11/17/19 08:46 11/17/19 09:51 11/17/19 08:46 11/17/19 08:46 11/17/19 08:47 Critical Care Time/MDM Note - Medical Decision Making Note: 89yo F on Eliquis with witnessed fall yesterday evening. Fell down and suffered a superficial abrasion to her left knee. Denies hitting her head, loss of consciousness, nausea, or vomiting. No back or neck pain. Patient denies knee pain. Last tetanus shot three years ago. Ambulating at her baseline (very unsteadily). Superficial abrasion to anterior left knee, hemostatic and without signs of infection No midline neck/back tenderness Head is atraumatic Ecchymoses noted on left arm Patient is at her neurologic baseline No imaging indicated at this time as patient is without pain Covered for tetanus from vaccination three years ago Antibiotic ointment to be applied to abrasion to reduce risk of infection Staff to monitor patient for acute change in clinical status 11/17/19 10:20
[2019-11-17] MEDS: BACITRACIN 15 GM TUBE TOPICAL OINTMENT TP SCH ×2 (12:34→21:43)
--- NOTE | 2019-11-17 15:21 | PN ---
Progress Note, Physician Chief Complaint: Patient is better,not coughing, not wheezing. HR is 100-120 b/min.There was no more rectal bleeding. The appetite is good and her bowel movements are normal. - Current Medication List Current Medications: Active Medications Acetaminophen (Tylenol -) 1,000 mg PO Q6H PRN PRN Reason: PAIN LEVEL 6-10 Last Admin: 11/11/19 13:21 Dose: 1,000 mg Apixaban (Eliquis -) 5 mg PO BID [facility] Last Admin: 11/17/19 09:51 Dose: 5 mg Bacitracin (Bacitracin -) 1 applic TP BID [facility] Last Admin: 11/17/19 12:34 Dose: 1 applic Chlorthalidone (Hygroton -) 25 mg PO DAILY [facility] Last Admin: 11/17/19 09:53 Dose: 25 mg Digoxin (Lanoxin -) 0.125 mg PO DAILY [facility] Last Admin: 11/17/19 09:51 Dose: 0.125 mg Diltiazem HCl 120 mg/ (Diltiazem HCl 180 mg) 300 mg PO DAILY [facility] Last Admin: 11/17/19 09:54 Dose: 300 mg Duloxetine HCl (Cymbalta -) 60 mg PO DAILY [facility] Last Admin: 11/17/19 09:54 Dose: 60 mg Enalapril Maleate (Vasotec -) 20 mg PO BID [facility] Last Admin: 11/17/19 09:54 Dose: 20 mg Lactobacillus Acidophilus (Bacid -) 1 tab PO DAILY [facility] Last Admin: 11/17/19 09:50 Dose: 1 tab Levalbuterol HCl (Xopenex) 0.31 mg IH Q8H PRN PRN Reason: ASTHMA Lidocaine (Lidoderm Patch -) 2 patch TP DAILY [facility] Last Admin: 11/17/19 09:54 Dose: 2 patch Methylprednisolone Sodium Succinate (Solu-Medrol -) 30 mg IVPUSH DAILY [facility] Last Admin: 11/17/19 09:53 Dose: 30 mg Metoprolol Tartrate (Lopressor Injection -) 5 mg IVPUSH Q4H PRN PRN Reason: HYPERTENSION Last Admin: 11/13/19 21:46 Dose: 5 mg Miscellaneous (Lidoderm Patch Removal) 1 each MC DAILY@2200 [facility] Last Admin: 11/16/19 22:20 Dose: 1 each Nebivolol (Bystolic -) 20 mg PO DAILY [facility] Last Admin: 11/17/19 09:53 Dose: 20 mg Nystatin (Mycostatin Cream -) 1 applic TP Q6HPO [facility] - Objective Vital Signs: Vital Signs Temperature 98.6 F 11/17/19 08:46 Pulse Rate 95 H 11/17/19 09:51 Respiratory Rate 20 11/17/19 09:00 Blood Pressure 123/67 11/17/19 08:46 O2 Sat by Pulse Oximetry (%) 99 11/17/19 09:00 Constitutional: Yes: No Distress, Calm Eyes: Yes: Conjunctiva Clear, EOM Intact HENT: Yes: Atraumatic, Normocephalic Neck: Yes: Supple, Trachea Midline Cardiovascular: Yes: Tachycardia, Pulse Irregular Gastrointestinal: Yes: Normal Bowel Sounds, Soft, Abdomen, Obese. No: Hepatomegaly, Splenomegaly ...Rectal Exam: Yes: Deferred Breast(s): Yes: WNL Extremities: No: Calf Tenderness Edema: No Peripheral Pulses WNL: Yes Wound/Incision: Yes: Other (excoriation on the right knee) Neurological: Yes: Alert, Oriented Psychiatric: Yes: Alert, Oriented Labs: CBC, BMP 11/15/19 06:35 11/17/19 08:00 Problem List - Problems (1) CHF (congestive heart failure) Assessment/Plan: needs control of her HR in order to improve the CHF Code(s): I50.9 - HEART FAILURE, UNSPECIFIED Qualifiers: Heart failure type: diastolic Heart failure chronicity: acute on chronic Qualified Code(s): I50.33 - Acute on chronic diastolic (congestive) heart failure (2) Atrial fibrillation Assessment/Plan: continue Bystolic, Xopenex nebulizer was stopped Cardizem was increased to 300 mg po daily Digoxin is therapeutic continue Eliquis 5 mg bid Code(s): I48.91 - UNSPECIFIED ATRIAL FIBRILLATION Qualifiers: Atrial fibrillation type: longstanding persistent Qualified Code(s): I48.11 - Longstanding persistent atrial fibrillation (3) Essential hypertension Code(s): I10 - ESSENTIAL (PRIMARY) HYPERTENSION (4) Melanoma Assessment/Plan: s/p excision Ct scan of the chest does not show malignancy Code(s): C43.9 - MALIGNANT MELANOMA OF SKIN, UNSPECIFIED (5) Rectal bleeding Assessment/Plan: resolved restarted Eliquis Code(s): K62.5 - HEMORRHAGE OF ANUS AND RECTUM
[2019-11-17] MEDS: NYSTATIN 100,000 UNIT/GM TOPICAL CREAM 15 GM TUBE TP SCH (18:09)
[2019-11-17] MEDS: LIDOCAINE PATCH REMOVAL MC SCH (21:43)
[2019-11-18] MEDS: NYSTATIN 100,000 UNIT/GM TOPICAL CREAM 15 GM TUBE TP SCH ×5 (00:22→23:42)
[2019-11-18] MEDS: DILTIAZEM CD 120 MG, DILTIAZEM CD 180 MG PO SCH (09:21)
[2019-11-18] MEDS: DULoxetine HCL 30 MG CAPSULE.DR PO SCH (09:21)
[2019-11-18] MEDS: LIDOCAINE 5% TOPICAL PATCH TP SCH (09:23)
[2019-11-18] MEDS: LACTOBACILLUS ACIDOPHILUS 1 TABLET PO SCH (09:34)
[2019-11-18] MEDS: methylPREDNISolone NA SUCC 40 MG/1 ML VIAL IVPUSH SCH (09:34)
[2019-11-18] MEDS: NEBIVOLOL 10 MG TABLET (FP) PO SCH (10:00)
[2019-11-18] MEDS: DIGOXIN 0.125 MG TABLET (FP) PO SCH (10:00)
[2019-11-18] MEDS: CHLORTHALIDONE 25 MG TABLET PO SCH (10:01)
[2019-11-18] MEDS: APIXABAN 5 MG TABLET PO SCH ×2 (10:01→22:18)
[2019-11-18] MEDS: BACITRACIN 15 GM TUBE TOPICAL OINTMENT TP SCH ×2 (10:06→22:18)
[2019-11-18] MEDS: ENALAPRIL MALEATE 10 MG TABLET (FP) PO SCH ×2 (10:12→22:18)
--- NOTE | 2019-11-18 11:18 | PN ---
Progress Note, Physician Chief Complaint: Not in distress Tolerating therapy Remains in AF with RVR History of Present Illness: Patient was seen and examined. Awake and alert. Chart was reviewed Denies chest pain, SOB or palpitations. - Current Medication List Current Medications: Active Medications Acetaminophen (Tylenol -) 1,000 mg PO Q6H PRN PRN Reason: PAIN LEVEL 6-10 Last Admin: 11/11/19 13:21 Dose: 1,000 mg Apixaban (Eliquis -) 5 mg PO BID [facility] Last Admin: 11/18/19 10:01 Dose: 5 mg Bacitracin (Bacitracin -) 1 applic TP BID [facility] Last Admin: 11/18/19 10:06 Dose: 1 applic Chlorthalidone (Hygroton -) 25 mg PO DAILY [facility] Last Admin: 11/18/19 10:01 Dose: 25 mg Digoxin (Lanoxin -) 0.125 mg PO DAILY [facility] Last Admin: 11/18/19 10:00 Dose: 0.125 mg Diltiazem HCl 120 mg/ (Diltiazem HCl 180 mg) 300 mg PO DAILY [facility] Last Admin: 11/18/19 09:21 Dose: 300 mg Duloxetine HCl (Cymbalta -) 60 mg PO DAILY [facility] Last Admin: 11/18/19 09:21 Dose: 60 mg Enalapril Maleate (Vasotec -) 20 mg PO BID [facility] Last Admin: 11/18/19 10:12 Dose: 20 mg Lactobacillus Acidophilus (Bacid -) 1 tab PO DAILY [facility] Last Admin: 11/18/19 09:34 Dose: 1 tab Levalbuterol HCl (Xopenex) 0.31 mg IH Q8H PRN PRN Reason: ASTHMA Lidocaine (Lidoderm Patch -) 2 patch TP DAILY [facility] Last Admin: 11/18/19 09:23 Dose: 2 patch Methylprednisolone Sodium Succinate (Solu-Medrol -) 30 mg IVPUSH DAILY [facility] Last Admin: 11/18/19 09:34 Dose: 30 mg Metoprolol Tartrate (Lopressor Injection -) 5 mg IVPUSH Q4H PRN PRN Reason: HYPERTENSION Last Admin: 11/13/19 21:46 Dose: 5 mg Miscellaneous (Lidoderm Patch Removal) 1 each MC DAILY@2200 [facility] Last Admin: 11/17/19 21:43 Dose: 1 each Nebivolol (Bystolic -) 20 mg PO DAILY [facility] Last Admin: 11/18/19 10:00 Dose: 20 mg Nystatin (Mycostatin Cream -) 1 applic TP Q6H [facility] Last Admin: 11/18/19 05:53 Dose: 1 applic - Objective Vital Signs: Vital Signs Temperature 97.4 F L 11/18/19 10:00 Pulse Rate 130 H 11/18/19 10:00 Respiratory Rate 18 11/18/19 10:00 Blood Pressure 130/73 11/18/19 10:00 O2 Sat by Pulse Oximetry (%) 96 11/18/19 10:00 Eyes: Yes: PERRL HENT: Yes: Atraumatic Neck: Yes: Supple Cardiovascular: Yes: Tachycardia, Pulse Irregular, S1, S2 Respiratory: Yes: Diminished Gastrointestinal: Yes: Normal Bowel Sounds, Soft. No: Tenderness Edema: No Additional Findings/Remarks: - Review of Systems Constitutional: denies: Chills, Fever Cardiovascular: reports: Palpitations, Shortness of Breath. denies: Chest Pain Respiratory: reports: Cough, SOB. denies: Hemoptysis, Orthopnea, PND Gastrointestinal: denies: Abdominal Pain, Constipation, Diarrhea, Melena, Nausea , Rectal Bleeding, Vomiting Genitourinary: denies: Dysuria, Hematuria Musculoskeletal: reports: Joint Pain. denies: Back Pain Neurological: denies: Dizziness, Headache, Seizure, Syncope Labs: CBC, BMP 11/15/19 06:35 11/17/19 08:00 Problem List - Problems (1) Atrial fibrillation Code(s): I48.91 - UNSPECIFIED ATRIAL FIBRILLATION Qualifiers: Atrial fibrillation type: longstanding persistent Qualified Code(s): I48.11 - Longstanding persistent atrial fibrillation (2) CHF (congestive heart failure) Code(s): I50.9 - HEART FAILURE, UNSPECIFIED Qualifiers: Heart failure type: diastolic Heart failure chronicity: acute on chronic Qualified Code(s): I50.33 - Acute on chronic diastolic (congestive) heart failure (3) Melanoma Code(s): C43.9 - MALIGNANT MELANOMA OF SKIN, UNSPECIFIED (4) Essential hypertension Code(s): I10 - ESSENTIAL (PRIMARY) HYPERTENSION (5) Aortic valve regurgitation Code(s): I35.1 - NONRHEUMATIC AORTIC (VALVE) INSUFFICIENCY Qualifiers: Cardiac valve disease etiology: nonrheumatic Qualified Code(s): I35.1 - Nonrheumatic aortic (valve) insufficiency (6) Tricuspid valve regurgitation Code(s): I07.1 - RHEUMATIC TRICUSPID INSUFFICIENCY Qualifiers: Cardiac valve disease etiology: nonrheumatic Qualified Code(s): I36.1 - Nonrheumatic tricuspid (valve) insufficiency (7) Shortness of breath Code(s): R06.02 - SHORTNESS OF BREATH Assessment/Plan 1. Acute on chronic class I-II NYHA classification LV diastolic failure 2. Persistent atrial fibrillation with RVR on A/C with DOAC/Eliquis 3. CAD with evidence of coronary artery calcification on CT scan of the chest angina pectoris 4. Pneumonia, clinically resolving 5. HTN 6. CKD with pre-renal azotemia, with acute exacerbation 7. History of melanoma 8. Hyponatremia, resolved 9. Hypokalemia, resolved 10. Rectal bleed - stable PLAN: 1. Continue Eliquis 5 mg BID with caution (patient had been on since beginning of September of this year) 2. Continue Bystolic 20 mg QD initiated as an alternative to Atenolol related to persistent wheeze/broncho-spasm. Continue Enalapril 20 mg BID as tolerated 3. Continue Cardizem CD 300 mg QD. Continue Digoxin 0.125 mg daily unless otherwise 4. Consider synchronized cardioversion today. Keep NPO. No need for DUONG guidance since she has been compliant with Eliquis. 4. Bronchodilators, IV steroids, O2 and antibiotics 5. Monitor K. Further plans are to follow Seng Enriquez MD
--- NOTE | 2019-11-18 14:32 | EKG ---
Test Reason : Blood Pressure : / mmHG Vent. Rate : 083 BPM Atrial Rate : 083 BPM P-R Int : 136 ms QRS Dur : 086 ms QT Int : 376 ms P-R-T Axes : 072 -24 162 degrees QTc Int : 441 ms SINUS RHYTHM WITH PREMATURE ATRIAL COMPLEXES and brief ATs ABNORMAL ECG WHEN COMPARED WITH ECG OF 03-NOV-2019 12:30, SINUS RHYTHM HAS REPLACED ATRIAL FIBRILLATION T WAVE INVERSION MORE EVIDENT IN LATERAL LEADS QT HAS SHORTENED Confirmed by Jignesh Ovalles ([id number]) on 11/18/2019 2:32:27 PM Referred By: STEVIE MCNEIL Confirmed By:Jignesh Ovalles
--- NOTE | 2019-11-18 15:33 | PN ---
Progress Note, Physician Chief Complaint: Patient was cardioverted today, and is in sinus rhythm. SHe tolerated the procedure well and is alert an awake. History of Present Illness: 89 yo female admitted for rapid Afib, and congestive heart failure, continues to experience shortness of breath and wheezing. Patient received IV diuresis , steroids and bronchodilators, and despite treatment the patient's respiratory status did not improve. Throughout her admission she continued to have atrial fibrillation with FVR which was not controlled with maximized doses of beta Blockers, Cadizem and digoxin. The patient was cardioverted today and since then she's been maintaining sinus rhythm - Current Medication List Current Medications: Active Medications Acetaminophen (Tylenol -) 1,000 mg PO Q6H PRN PRN Reason: PAIN LEVEL 6-10 Last Admin: 11/11/19 13:21 Dose: 1,000 mg Apixaban (Eliquis -) 5 mg PO BID [facility] Last Admin: 11/18/19 10:01 Dose: 5 mg Bacitracin (Bacitracin -) 1 applic TP BID [facility] Last Admin: 11/18/19 10:06 Dose: 1 applic Chlorthalidone (Hygroton -) 25 mg PO DAILY [facility] Last Admin: 11/18/19 10:01 Dose: 25 mg Digoxin (Lanoxin -) 0.125 mg PO DAILY [facility] Last Admin: 11/18/19 10:00 Dose: 0.125 mg Diltiazem HCl 120 mg/ (Diltiazem HCl 180 mg) 300 mg PO DAILY [facility] Last Admin: 11/18/19 09:21 Dose: 300 mg Duloxetine HCl (Cymbalta -) 60 mg PO DAILY [facility] Last Admin: 11/18/19 09:21 Dose: 60 mg Enalapril Maleate (Vasotec -) 20 mg PO BID [facility] Last Admin: 11/18/19 10:12 Dose: 20 mg Lactobacillus Acidophilus (Bacid -) 1 tab PO DAILY [facility] Last Admin: 11/18/19 09:34 Dose: 1 tab Levalbuterol HCl (Xopenex) 0.31 mg IH Q8H PRN PRN Reason: ASTHMA Lidocaine (Lidoderm Patch -) 2 patch TP DAILY [facility] Last Admin: 11/18/19 09:23 Dose: 2 patch Methylprednisolone Sodium Succinate (Solu-Medrol -) 30 mg IVPUSH DAILY [facility] Last Admin: 11/18/19 09:34 Dose: 30 mg Metoprolol Tartrate (Lopressor Injection -) 5 mg IVPUSH Q4H PRN PRN Reason: HYPERTENSION Last Admin: 11/13/19 21:46 Dose: 5 mg Miscellaneous (Lidoderm Patch Removal) 1 each MC DAILY@2200 [facility] Last Admin: 11/17/19 21:43 Dose: 1 each Nebivolol (Bystolic -) 20 mg PO DAILY [facility] Last Admin: 11/18/19 10:00 Dose: 20 mg Nystatin (Mycostatin Cream -) 1 applic TP Q6H [facility] Last Admin: 11/18/19 13:19 Dose: 1 applic - Objective Vital Signs: Vital Signs Temperature 97.4 F L 11/18/19 14:00 Pulse Rate 67 11/18/19 14:00 Respiratory Rate 18 11/18/19 14:00 Blood Pressure 137/72 11/18/19 14:00 O2 Sat by Pulse Oximetry (%) 98 11/18/19 14:00 Constitutional: Yes: No Distress, Calm Eyes: Yes: Conjunctiva Clear, EOM Intact HENT: Yes: Atraumatic, Normocephalic Neck: Yes: Supple, Trachea Midline Cardiovascular: Yes: Regular Rate and Rhythm, S1, S2 Respiratory: Yes: Regular, CTA Bilaterally Gastrointestinal: Yes: Normal Bowel Sounds, Soft, Abdomen, Obese. No: Hepatomegaly, Splenomegaly Extremities: No: Calf Tenderness Edema: No Peripheral Pulses WNL: No Neurological: Yes: Alert, Oriented Psychiatric: Yes: Alert, Oriented Labs: CBC, BMP 11/15/19 06:35 11/17/19 08:00 Problem List - Problems (1) CHF (congestive heart failure) Assessment/Plan: better, there is no cough or wheezing continue Chlorthalidone Problems reviewed: Yes Code(s): I50.9 - HEART FAILURE, UNSPECIFIED Qualifiers: Heart failure type: diastolic Heart failure chronicity: acute on chronic Qualified Code(s): I50.33 - Acute on chronic diastolic (congestive) heart failure (2) Atrial fibrillation Assessment/Plan: was cardioverted and in sinus rhythm continue Bystolic, continue Cardizem and Digoxin continue Eliquis 5 mg bid Code(s): I48.91 - UNSPECIFIED ATRIAL FIBRILLATION Qualifiers: Atrial fibrillation type: longstanding persistent Qualified Code(s): I48.11 - Longstanding persistent atrial fibrillation (3) Essential hypertension Assessment/Plan: controlled Code(s): I10 - ESSENTIAL (PRIMARY) HYPERTENSION (4) Rectal bleeding Assessment/Plan: resolved restarted Eliquis Code(s): K62.5 - HEMORRHAGE OF ANUS AND RECTUM
[2019-11-18] MEDS ORDERED: PT OWN MED DRAWER 7, Y5N ONE (17:09)
[2019-11-18] MEDS: LIDOCAINE PATCH REMOVAL MC SCH (22:19)
[2019-11-19] MEDS: NYSTATIN 100,000 UNIT/GM TOPICAL CREAM 15 GM TUBE TP SCH ×3 (06:48→18:51)
[2019-11-19] MEDS: ACETAMINOPHEN 500 MG TABLET (FP) PO PRN (06:51)
[2019-11-19 08:18] LABS: ALBUMIN 3.2 g/dl (3.4-5.0); BILIRUBIN,TOTAL 2.4 mg/dl (0.2-1); CALCIUM 9.4 mg/dl (8.5-10); CREATININE 0.9 mg/dl (0.55-1.3); POTASSIUM 3.9 mmol/L (3.5-5.1); TOT PROT 5.2 g/dl (6.4-8.2)
[2019-11-19] MEDS ORDERED: GLYCERIN 1 RECTAL SUPPOSITORY, ADULT RC ONE (09:00)
[2019-11-19] MEDS ORDERED: MAGNESIUM HYDROX 2400MG/30ML ORAL SUSPENSION 30 ML CUP PO ONE ×2 (09:00→14:00)
[2019-11-19] MEDS: APIXABAN 5 MG TABLET PO SCH ×2 (09:59→22:07)
[2019-11-19] MEDS: DILTIAZEM CD 120 MG, DILTIAZEM CD 180 MG PO SCH (10:00)
[2019-11-19] MEDS: DULoxetine HCL 30 MG CAPSULE.DR PO SCH (10:00)
[2019-11-19] MEDS ORDERED: predniSONE 20 MG TABLET (UD) PO SCH (10:00)
[2019-11-19] MEDS: NEBIVOLOL 10 MG TABLET (FP) PO SCH (10:02)
[2019-11-19] MEDS: CHLORTHALIDONE 25 MG TABLET PO SCH (10:03)
[2019-11-19] MEDS: DIGOXIN 0.125 MG TABLET (FP) PO SCH (10:04)
[2019-11-19] MEDS: ENALAPRIL MALEATE 10 MG TABLET (FP) PO SCH ×2 (10:05→22:07)
[2019-11-19] MEDS: LIDOCAINE 5% TOPICAL PATCH TP SCH (10:06)
[2019-11-19] MEDS: BACITRACIN 15 GM TUBE TOPICAL OINTMENT TP SCH ×2 (10:06→22:07)
[2019-11-19] MEDS: LACTOBACILLUS ACIDOPHILUS 1 TABLET PO SCH (10:06)
--- NOTE | 2019-11-19 10:51 | PN ---
Progress Note, Physician Chief Complaint: Not in distress Tolerating therapy Synchronized cardioversion yesterday Currently in sinus rhythm History of Present Illness: Patient was seen and examined. Awake and alert. Chart was reviewed Denies chest pain, SOB or palpitations. Not in distress - Current Medication List Current Medications: Active Medications Acetaminophen (Tylenol -) 1,000 mg PO Q6H PRN PRN Reason: PAIN LEVEL 6-10 Last Admin: 11/19/19 06:51 Dose: 1,000 mg Apixaban (Eliquis -) 5 mg PO BID [facility] Last Admin: 11/19/19 09:59 Dose: 5 mg Bacitracin (Bacitracin -) 1 applic TP BID [facility] Last Admin: 11/19/19 10:06 Dose: 1 applic Chlorthalidone (Hygroton -) 25 mg PO DAILY [facility] Last Admin: 11/19/19 10:03 Dose: 25 mg Digoxin (Lanoxin -) 0.125 mg PO DAILY [facility] Last Admin: 11/19/19 10:04 Dose: 0.125 mg Diltiazem HCl 120 mg/ (Diltiazem HCl 180 mg) 300 mg PO DAILY [facility] Last Admin: 11/19/19 10:00 Dose: 300 mg Duloxetine HCl (Cymbalta -) 60 mg PO DAILY [facility] Last Admin: 11/19/19 10:00 Dose: 60 mg Enalapril Maleate (Vasotec -) 20 mg PO BID [facility] Last Admin: 11/19/19 10:05 Dose: 20 mg Lactobacillus Acidophilus (Bacid -) 1 tab PO DAILY [facility] Last Admin: 11/19/19 10:06 Dose: 1 tab Levalbuterol HCl (Xopenex) 0.31 mg IH Q8H PRN PRN Reason: ASTHMA Lidocaine (Lidoderm Patch -) 2 patch TP DAILY [facility] Last Admin: 11/19/19 10:06 Dose: 2 patch Metoprolol Tartrate (Lopressor Injection -) 5 mg IVPUSH Q4H PRN PRN Reason: HYPERTENSION Last Admin: 11/13/19 21:46 Dose: 5 mg Miscellaneous (Lidoderm Patch Removal) 1 each MC DAILY@2200 [facility] Last Admin: 11/18/19 22:19 Dose: 1 each Nebivolol (Bystolic -) 20 mg PO DAILY [facility] Last Admin: 11/19/19 10:02 Dose: 20 mg Nystatin (Mycostatin Cream -) 1 applic TP Q6H [facility] Last Admin: 11/19/19 06:48 Dose: 1 applic Prednisone (Deltasone -) 20 mg PO DAILY [facility] Last Admin: 11/19/19 10:03 Dose: 20 mg - Objective Vital Signs: Vital Signs Temperature 98.1 F 11/19/19 10:14 Pulse Rate 94 H 11/19/19 10:14 Respiratory Rate 16 11/19/19 10:14 Blood Pressure 154/62 11/19/19 10:14 O2 Sat by Pulse Oximetry (%) 95 11/19/19 08:30 Neck: Yes: Supple Cardiovascular: Yes: Regular Rate and Rhythm, S1, S2 Respiratory: Yes: Diminished Gastrointestinal: Yes: Normal Bowel Sounds, Soft. No: Tenderness Edema: No Additional Findings/Remarks: - Review of Systems Constitutional: denies: Chills, Fever Cardiovascular: reports: Palpitations, Shortness of Breath. denies: Chest Pain Respiratory: reports: Cough, SOB. denies: Hemoptysis, Orthopnea, PND Gastrointestinal: denies: Abdominal Pain, Constipation, Diarrhea, Melena, Nausea , Rectal Bleeding, Vomiting Genitourinary: denies: Dysuria, Hematuria Musculoskeletal: reports: Joint Pain. denies: Back Pain Neurological: denies: Dizziness, Headache, Seizure, Syncope Labs: 11/19/19 07:40 Problem List - Problems (1) Atrial fibrillation Code(s): I48.91 - UNSPECIFIED ATRIAL FIBRILLATION Qualifiers: Atrial fibrillation type: longstanding persistent Qualified Code(s): I48.11 - Longstanding persistent atrial fibrillation (2) CHF (congestive heart failure) Code(s): I50.9 - HEART FAILURE, UNSPECIFIED Qualifiers: Heart failure type: diastolic Heart failure chronicity: acute on chronic Qualified Code(s): I50.33 - Acute on chronic diastolic (congestive) heart failure (3) Melanoma Code(s): C43.9 - MALIGNANT MELANOMA OF SKIN, UNSPECIFIED (4) Essential hypertension Code(s): I10 - ESSENTIAL (PRIMARY) HYPERTENSION (5) Aortic valve regurgitation Code(s): I35.1 - NONRHEUMATIC AORTIC (VALVE) INSUFFICIENCY Qualifiers: Cardiac valve disease etiology: nonrheumatic Qualified Code(s): I35.1 - Nonrheumatic aortic (valve) insufficiency (6) Tricuspid valve regurgitation Code(s): I07.1 - RHEUMATIC TRICUSPID INSUFFICIENCY Qualifiers: Cardiac valve disease etiology: nonrheumatic Qualified Code(s): I36.1 - Nonrheumatic tricuspid (valve) insufficiency (7) Shortness of breath Code(s): R06.02 - SHORTNESS OF BREATH Assessment/Plan 1. Acute on chronic class I-II NYHA classification LV diastolic failure 2. Paroxysmal atrial fibrillation post synchronized cardioversion to sinus rhyhtm on A/C with DOAC/Eliquis 3. CAD with evidence of coronary artery calcification on CT scan of the chest angina pectoris 4. Pneumonia, clinically resolving 5. HTN 6. CKD with pre-renal azotemia, with acute exacerbation 7. History of melanoma 8. Hyponatremia, resolved 9. Hypokalemia, resolved 10. Rectal bleed - stable PLAN: 1. Continue Eliquis 5 mg BID with caution 2. Continue Bystolic 20 mg QD initiated as an alternative to Atenolol related to persistent wheeze/broncho-spasm. Continue Enalapril 20 mg BID as tolerated 3. Continue Cardizem CD 300 mg QD. Continue Digoxin 0.125 mg perhaps every other day. Check Dig level 4. Bronchodilators, IV steroids, O2 and antibiotics 5. Monitor K. Further plans are to follow Seng Enriquez MD
[2019-11-19] MEDS ORDERED: POLYETHYLENE GLYCOL 3350 119 GM BTL PO PRN (13:42)
--- NOTE | 2019-11-19 16:23 | PN ---
Progress Note, Physician Chief Complaint: Elizabeth developed abdominal distention and pain early this am. An AXR showed large intestine distention. After being given Maalox and Miralax she had a loose bowel movement. The patient is confused and weak, there is no fever. History of Present Illness: 89 yo female admitted for rapid Afib, and congestive heart failure, continues to experience shortness of breath and wheezing. Patient received IV diuresis , steroids and bronchodilators, and despite treatment the patient's respiratory status did not improve. Throughout her admission she continued to have atrial fibrillation with FVR which was not controlled with maximized doses of beta Blockers, Cadizem and digoxin. The patient was cardioverted yesterday and since then she's been maintaining sinus rhythm - Current Medication List Current Medications: Active Medications Acetaminophen (Tylenol -) 1,000 mg PO Q6H PRN PRN Reason: PAIN LEVEL 6-10 Last Admin: 11/19/19 06:51 Dose: 1,000 mg Apixaban (Eliquis -) 5 mg PO BID [facility] Last Admin: 11/19/19 09:59 Dose: 5 mg Bacitracin (Bacitracin -) 1 applic TP BID [facility] Last Admin: 11/19/19 10:06 Dose: 1 applic Chlorthalidone (Hygroton -) 25 mg PO DAILY [facility] Last Admin: 11/19/19 10:03 Dose: 25 mg Digoxin (Lanoxin -) 0.125 mg PO DAILY [facility] Last Admin: 11/19/19 10:04 Dose: 0.125 mg Diltiazem HCl 120 mg/ (Diltiazem HCl 180 mg) 300 mg PO DAILY [facility] Last Admin: 11/19/19 10:00 Dose: 300 mg Duloxetine HCl (Cymbalta -) 60 mg PO DAILY [facility] Last Admin: 11/19/19 10:00 Dose: 60 mg Enalapril Maleate (Vasotec -) 20 mg PO BID [facility] Last Admin: 11/19/19 10:05 Dose: 20 mg Dextrose/Sodium Chloride (D5-1/2ns -) 1,000 mls @ 42 mls/hr IV ASDIR [facility] Lidocaine (Lidoderm Patch -) 2 patch TP DAILY [facility] Last Admin: 11/19/19 10:06 Dose: 2 patch Metoprolol Tartrate (Lopressor Injection -) 5 mg IVPUSH Q4H PRN PRN Reason: HYPERTENSION Last Admin: 11/13/19 21:46 Dose: 5 mg Miscellaneous (Lidoderm Patch Removal) 1 each MC DAILY@2200 [facility] Last Admin: 11/18/19 22:19 Dose: 1 each Nebivolol (Bystolic -) 20 mg PO DAILY [facility] Last Admin: 11/19/19 10:02 Dose: 20 mg Nystatin (Mycostatin Cream -) 1 applic TP Q6H [facility] Last Admin: 11/19/19 12:25 Dose: 1 applic Polyethylene Glycol (Miralax (For Daily Use) -) 17 gm PO DAILY PRN PRN Reason: CONSTIPATION Last Admin: 11/19/19 13:53 Dose: 17 grams Prednisone (Deltasone -) 20 mg PO DAILY [facility] Last Admin: 11/19/19 10:03 Dose: 20 mg - Objective Vital Signs: Vital Signs Temperature 97.6 F 11/19/19 14:31 Pulse Rate 83 11/19/19 14:31 Respiratory Rate 19 11/19/19 14:31 Blood Pressure 142/75 11/19/19 14:31 O2 Sat by Pulse Oximetry (%) 99 11/19/19 14:31 Constitutional: Yes: No Distress, Calm Eyes: Yes: Conjunctiva Clear, EOM Intact HENT: Yes: Atraumatic, Normocephalic Neck: Yes: Supple, Trachea Midline Cardiovascular: Yes: Regular Rate and Rhythm Respiratory: Yes: Regular, CTA Bilaterally Gastrointestinal: Yes: Distention, Hypoactive Bowel Sounds, Other (abdomen distended, BS present in the right lower quadrant.) Breast(s): Yes: WNL Musculoskeletal: Yes: WNL Extremities: No: Calf Tenderness Edema: No Peripheral Pulses WNL: Yes Neurological: Yes: Alert, Oriented, Lethargy Psychiatric: Yes: Alert, Oriented Labs: CBC, BMP 11/15/19 06:35 11/19/19 07:40 - ....Imaging X-ray: Other (AXR distended large intestine , no free air) Problem List - Problems (1) Intestinal obstruction Assessment/Plan: NPO start IV fluids d5 1/2 NS 43 cc /hr NG tube low intermittent suction Code(s): K56.609 - UNSP INTESTNL OBST, UNSP TO PARTIAL VERSUS COMPLETE OBST (2) Leukocytosis Assessment/Plan: unasyn 1.5 gm iv q8hrs stop SoluCortef Code(s): D72.829 - ELEVATED WHITE BLOOD CELL COUNT, UNSPECIFIED (3) CHF (congestive heart failure) Assessment/Plan: better, there is no cough or wheezing hold Chlorthalidone patient will be NPO except for meds Code(s): I50.9 - HEART FAILURE, UNSPECIFIED Qualifiers: Heart failure type: diastolic Heart failure chronicity: acute on chronic Qualified Code(s): I50.33 - Acute on chronic diastolic (congestive) heart failure (4) Atrial fibrillation Assessment/Plan: was cardioverted and in sinus rhythm continue Bystolic, continue Cardizem and Digoxin continue Eliquis 5 mg bid digoxin level Code(s): I48.91 - UNSPECIFIED ATRIAL FIBRILLATION Qualifiers: Atrial fibrillation type: longstanding persistent Qualified Code(s): I48.11 - Longstanding persistent atrial fibrillation (5) Essential hypertension Assessment/Plan: controlled Code(s): I10 - ESSENTIAL (PRIMARY) HYPERTENSION (6) Intestinal obstruction Assessment/Plan: NPO except for meds Code(s): K56.609 - UNSP INTESTNL OBST, UNSP TO PARTIAL VERSUS COMPLETE OBST (7) Rectal bleeding Assessment/Plan: resolved restarted Eliquis Code(s): K62.5 - HEMORRHAGE OF ANUS AND RECTUM
[2019-11-19] MEDS ORDERED: BISACODYL 10 MG SUPP.RECT RC ONE (16:33)
[2019-11-19 16:45] LABS: HEMATOCRIT 55.4 % (32.4-45.2); HEMOGLOBIN 17.7 GM/dl (10.7-15.3); MCH 26.6 pg (25.7-33.7); MEAN CELL VOLUME 83.2 fl (80-96); MEAN PLT VOLUME 9.9 fl (7.5-11.1); PLATELET COUNT 128 K/MM3 (134-434); RBC 6.66 M/mm3 (3.60-5.2); RDW 15.1 % (11.6-15.6)
[2019-11-19 17:17] LABS: PLATELET ESTIMATE SLT DECREASE
[2019-11-19] MEDS: DEXTROSE 5%-0.45% SALINE 1,000 ML IV SCH (18:50)
[2019-11-19] MEDS ORDERED: LORazepam 2 MG/ML SDV VIAL IVPUSH ONE (20:03)
[2019-11-19] MEDS ORDERED: predniSONE 5 MG TABLET (UD) PO SCH (20:19)
[2019-11-19] MEDS: LIDOCAINE PATCH REMOVAL MC SCH (22:08)
[2019-11-19] MEDS ORDERED: ACETAMINOPHEN 1000 MG/100 ML VIAL (NON FORMULARY) IVPB PRN (22:50)
[2019-11-20] MEDS: NYSTATIN 100,000 UNIT/GM TOPICAL CREAM 15 GM TUBE TP SCH ×5 (01:22→23:30)
[2019-11-20 07:54] LABS: BILIRUBIN,TOTAL 2.2 mg/dl (0.2-1); CREATININE 1.1 mg/dl (0.55-1.3); POTASSIUM 4.1 mmol/L (3.5-5.1)
[2019-11-20 08:15] LABS: LYMPH % 1.6 % (8-40); MCH 26.4 pg (25.7-33.7); MCHC 31.4 g/dl (32.0-36.0); MEAN PLT VOLUME 10.7 fl (7.5-11.1); MONO % 2.2 % (3.8-10.2); NEUT % 96.2 % (42.8-82.8); PLATELET COUNT 95 K/MM3 (134-434); RBC 6.57 M/mm3 (3.60-5.2); RDW 15.7 % (11.6-15.6)
[2019-11-20 08:16] LABS: HEMOGLOBIN 17.7 GM/dl (10.7-15.3)
[2019-11-20 08:17] LABS: HEMATOCRIT 53.2 % (32.4-45.2)
[2019-11-20 08:37] LABS: WHITE BLOOD COUNT 32.3 K/mm3 (4.0-10.8)
[2019-11-20] MEDS: LIDOCAINE 5% TOPICAL PATCH TP SCH (10:00)
[2019-11-20] MEDS: BACITRACIN 15 GM TUBE TOPICAL OINTMENT TP SCH ×2 (10:00→22:00)
[2019-11-20] MEDS: APIXABAN 5 MG TABLET PO SCH ×2 (13:09→21:11)
[2019-11-20] MEDS: DILTIAZEM CD 120 MG, DILTIAZEM CD 180 MG PO SCH (13:09)
[2019-11-20] MEDS: NEBIVOLOL 10 MG TABLET (FP) PO SCH (13:09)
[2019-11-20] MEDS: CHLORTHALIDONE 25 MG TABLET PO SCH (13:09)
[2019-11-20] MEDS: ENALAPRIL MALEATE 10 MG TABLET (FP) PO SCH ×2 (13:10→21:12)
[2019-11-20] MEDS: DIGOXIN 0.125 MG TABLET (FP) PO SCH (13:10)
[2019-11-20] MEDS ORDERED: LORazepam 2 MG/ML SDV VIAL ONE ×2 (14:46→14:47)
[2019-11-20] MEDS: LORazepam 2 MG/ML SDV VIAL IVPUSH PRN ×2 (14:51→20:59)
[2019-11-20] MEDS: DEXTROSE 5%-0.45% SALINE 1,000 ML IV SCH (16:00)
[2019-11-20] MEDS ORDERED: morphine CARPU-JECT 2 MG/1 ML DISP.SYRIN ONE (18:27)
[2019-11-20] MEDS: morphine CARPU-JECT 2 MG/1 ML DISP.SYRIN SQ PRN (18:29)
--- NOTE | 2019-11-20 19:49 | PN ---
Progress Note, Physician Chief Complaint: Elizabeth continues to have abdominal distention and pain . An AXR showed worsening large intestine distention. Aspirate from NG tube overnight was only 50 cc and did not relieve the discomfort and distention. The patient is confused and weak, there is no fever. Discussed with fAmily at bedside and palliative care requested was initiated History of Present Illness: 89 yo female admitted for rapid Afib, and congestive heart failure, continues to experience shortness of breath and wheezing. Patient received IV diuresis , steroids and bronchodilators, and despite treatment the patient's respiratory status did not improve. Throughout her admission she continued to have atrial fibrillation with FVR which was not controlled with maximized doses of beta Blockers, Cadizem and digoxin. The patient was cardioverted and since then she's been maintaining sinus rhythm. @4 hours after cardioversion patient developed abdominal distention and intestinal occlusion. An ng tube was inserted but the amount of aspirate was minimal. - Current Medication List Current Medications: Active Medications Acetaminophen (Ofirmev Injection -) 1,000 mg IVPB Q6H PRN PRN Reason: PAIN Stop: 11/20/19 22:50 Apixaban (Eliquis -) 5 mg PO BID [facility] Last Admin: 11/20/19 13:09 Dose: Not Given Bacitracin (Bacitracin -) 1 applic TP BID [facility] Last Admin: 11/20/19 10:00 Dose: 1 applic Chlorthalidone (Hygroton -) 25 mg PO DAILY [facility] Last Admin: 11/20/19 13:09 Dose: Not Given Digoxin (Lanoxin -) 0.125 mg PO DAILY [facility] Last Admin: 11/20/19 13:10 Dose: Not Given Diltiazem HCl 120 mg/ (Diltiazem HCl 180 mg) 300 mg PO DAILY [facility] Last Admin: 11/20/19 13:09 Dose: Not Given Enalapril Maleate (Vasotec -) 20 mg PO BID [facility] Last Admin: 11/20/19 13:10 Dose: Not Given Dextrose/Sodium Chloride (D5-1/2ns -) 1,000 mls @ 42 mls/hr IV ASDIR [facility] Last Admin: 11/20/19 16:00 Dose: 42 mls/hr Lidocaine (Lidoderm Patch -) 2 patch TP DAILY [facility] Last Admin: 11/20/19 10:00 Dose: 2 patch Lorazepam (Ativan Injection -) 0.25 mg IVPUSH Q6H PRN PRN Reason: ANXIETY Last Admin: 11/20/19 14:51 Dose: 0.25 mg Metoprolol Tartrate (Lopressor Injection -) 5 mg IVPUSH Q4H PRN PRN Reason: HYPERTENSION Last Admin: 11/13/19 21:46 Dose: 5 mg Miscellaneous (Lidoderm Patch Removal) 1 each MC DAILY@2200 [facility] Last Admin: 11/19/19 22:08 Dose: 1 each Morphine Sulfate (Morphine Injection -) 0.5 mg SQ Q6H PRN PRN Reason: PAIN LEVEL 4 - 6 Last Admin: 11/20/19 18:29 Dose: 0.5 mg Nebivolol (Bystolic -) 20 mg PO DAILY [facility] Last Admin: 11/20/19 13:09 Dose: Not Given Nystatin (Mycostatin Cream -) 1 applic TP Q6H [facility] Last Admin: 11/20/19 18:06 Dose: 1 applic Polyethylene Glycol (Miralax (For Daily Use) -) 17 gm PO DAILY PRN PRN Reason: CONSTIPATION Last Admin: 11/19/19 13:53 Dose: 17 grams - Objective Vital Signs: Vital Signs Temperature 98.2 F 11/20/19 09:30 Pulse Rate 70 11/20/19 09:30 Respiratory Rate 17 11/20/19 09:30 Blood Pressure 130/72 11/20/19 09:30 O2 Sat by Pulse Oximetry (%) 98 11/20/19 10:41 Constitutional: Yes: No Distress, Calm Eyes: Yes: Conjunctiva Clear, EOM Intact HENT: Yes: Atraumatic, Normocephalic Neck: Yes: Supple, Trachea Midline Cardiovascular: Yes: Regular Rate and Rhythm, Tachycardia Respiratory: Yes: Regular, On Nasal O2, SOB Gastrointestinal: Yes: Distention, Hypoactive Bowel Sounds ...Rectal Exam: Yes: Deferred Edema: No Peripheral Pulses WNL: Yes Neurological: Yes: Confusion, Weakness Labs: CBC, BMP 11/20/19 06:45 11/20/19 06:45 Problem List - Problems (1) Intestinal obstruction Assessment/Plan: NPO start IV fluids d5 1/2 NS 43 cc /hr NG tube low intermittent suction discontinued palliative care discussed and initiated at family's request Code(s): K56.609 - UNSP INTESTNL OBST, UNSP TO PARTIAL VERSUS COMPLETE OBST (2) Leukocytosis Assessment/Plan: unasyn 1.5 gm iv q8hrs Code(s): D72.829 - ELEVATED WHITE BLOOD CELL COUNT, UNSPECIFIED (3) CHF (congestive heart failure) Assessment/Plan: patient will be NPO except for meds Code(s): I50.9 - HEART FAILURE, UNSPECIFIED Qualifiers: Heart failure type: diastolic Heart failure chronicity: acute on chronic Qualified Code(s): I50.33 - Acute on chronic diastolic (congestive) heart failure (4) Atrial fibrillation Assessment/Plan: was cardioverted and in sinus rhythm continue Bystolic, continue Cardizem and Digoxin continue Eliquis 5 mg bid digoxin level is therapeutic Code(s): I48.91 - UNSPECIFIED ATRIAL FIBRILLATION Qualifiers: Atrial fibrillation type: longstanding persistent Qualified Code(s): I48.11 - Longstanding persistent atrial fibrillation (5) Essential hypertension Assessment/Plan: controlled Code(s): I10 - ESSENTIAL (PRIMARY) HYPERTENSION Assessment/Plan PAlliative care will be initiated due to poor prognosis related to age and comorbidities and secondary to families wishes
[2019-11-20] MEDS: LIDOCAINE PATCH REMOVAL MC SCH (21:12)
[2019-11-21] MEDS: morphine CARPU-JECT 2 MG/1 ML DISP.SYRIN SQ PRN ×3 (00:05→08:43)
[2019-11-21] MEDS: NYSTATIN 100,000 UNIT/GM TOPICAL CREAM 15 GM TUBE TP SCH (06:21)
[2019-11-21 06:29] VITALS: PULSE 78
[2019-11-21 09:16] VITALS: BP 109/54
[2019-11-21] MEDS: BACITRACIN 15 GM TUBE TOPICAL OINTMENT TP SCH (10:08)
[2019-11-21] MEDS: NEBIVOLOL 10 MG TABLET (FP) PO SCH (10:08)
[2019-11-21] MEDS: DILTIAZEM CD 120 MG, DILTIAZEM CD 180 MG PO SCH (10:08)
[2019-11-21] MEDS: APIXABAN 5 MG TABLET PO SCH (10:08)
[2019-11-21] MEDS: CHLORTHALIDONE 25 MG TABLET PO SCH (10:08)
[2019-11-21 10:38] VITALS: TEMP 97.6
[2019-11-21] MEDS: LORazepam 2 MG/ML SDV VIAL IVPUSH PRN (10:45)
[2019-11-21] MEDS: LIDOCAINE 5% TOPICAL PATCH TP SCH (11:10)
[2019-11-21] MEDS: ENALAPRIL MALEATE 10 MG TABLET (FP) PO SCH (11:10)
[2019-11-21] MEDS: DIGOXIN 0.125 MG TABLET (FP) PO SCH (11:10)
--- NOTE | 2019-11-25 22:25 | DS ---
Physical Examination Vital Signs: Vital Signs Temperature 97.6 F 11/21/19 09:16 Pulse Rate 78 11/21/19 09:16 Respiratory Rate 16 11/21/19 09:16 Blood Pressure 109/54 L 11/21/19 09:16 O2 Sat by Pulse Oximetry (%) 100 11/21/19 09:16 Constitutional: Yes: No Distress, Calm Eyes: Yes: Conjunctiva Clear, EOM Intact HENT: Yes: Atraumatic, Normocephalic Neck: Yes: Supple, Trachea Midline Cardiovascular: Yes: Regular Rate and Rhythm, S1, S2 Respiratory: Yes: Regular, CTA Bilaterally Gastrointestinal: Yes: Abdomen, Obese, Distention, Hypoactive Bowel Sounds. No : Hepatomegaly, Splenomegaly Labs: CBC, BMP 11/20/19 06:45 11/20/19 06:45 Discharge Summary Problems reviewed: Yes Reason For Visit: CONGESTIVE HEART FAILURE Health Concerns: intestinal occlusion Plan of Treatment: palliative Condition: Worsened - Instructions Disposition: DISCH TO [facility] - Home Medications Comprehensive Discharge Medication List: Ambulatory Orders Apixaban [Eliquis] 5 mg PO BID 11/03/19 Atenolol [Tenormin -] 100 mg PO DAILY 11/03/19 Chlorthalidone 25 mg PO BID 11/03/19 Diltiazem Cd [Cardizem Cd -] 180 mg PO DAILY 11/03/19 Docusate Sodium [Colace] 100 mg PO DAILY 11/03/19 Duloxetine HCl 30 mg PO BID 11/03/19 Enalapril Maleate [Vasotec] 40 mg PO DAILY 11/03/19 Lidocaine 5% Patch [Lidoderm Patch -] 1 patch TP DAILY 11/03/19 Potassium Chloride 10 meq PO DAILY 11/03/19
== END 2019-11-21 12:08 | disposition hospice, inpatient (51) | DRG 291 ==
LOC: FER 12:30 → FM/S 13:22
PROVIDERS: ADMIT Internal Medicine; ATTEND Internal Medicine
PROC: 5A2204Z Restoration of Cardiac Rhythm, Single (ICD-10-PCS; principal; 2019-11-18 12:05)
DX: I13.0 Hypertensive heart and chronic kidney disease with heart failure and stage 1 through stage 4 chronic kidney disease, or unspecified chronic kidney disease (principal); I50.33 Acute on chronic diastolic (congestive) heart failure; J18.9 Pneumonia, unspecified organism; K62.5 Hemorrhage of anus and rectum; I48.19 Other persistent atrial fibrillation; K56.609 Unspecified intestinal obstruction, unspecified as to partial versus complete obstruction; E87.1 Hypo-osmolality and hyponatremia; N17.9 Acute kidney failure, unspecified; J98.11 Atelectasis; C43.9 Malignant melanoma of skin, unspecified; D72.829 Elevated white blood cell count, unspecified; I25.119 Atherosclerotic heart disease of native coronary artery with unspecified angina pectoris; E87.6 Hypokalemia; N18.9 Chronic kidney disease, unspecified; R00.0 Tachycardia, unspecified; I35.1 Nonrheumatic aortic (valve) insufficiency; I36.1 Nonrheumatic tricuspid (valve) insufficiency
CPT/HCPCS: 36415; 71045-TC-FY; 71046-TC-FY; 71250-TC; 74018-TC-FY; 80053; 80061; 80162; 81003; 81015; 82550; 83735; 83880; 84443; 84484; 85025; 87077; 87086; 93005; 93306-TC; 94640; 94760; 97116-GP; 97162-GP; 99285-25; J0131